=== PATIENT | female | born 1960 | race Caucasian/White ===

== ENCOUNTER → 2019-09-24 13:51 | Outpatient (BNVA) | payer MEDICARE, SELFPAY | PROVIDERS: Family Provider Internal Medicine; PCP Internal Medicine; Visit Provider Specialist | DX: M25.512 Pain in left shoulder (principal) | CPT/HCPCS: 73030 ==

== ENCOUNTER 2019-09-25 16:03 | Emergency (ER) | payer SELFPAY ==
[2019-09-25 16:05] VITALS: BP 112/64; PULSE 85; RESP 16; O2SAT 95; BMI 22.9
--- NOTE | 2019-09-25 16:17 | ED_ITS ---
Entered by Allegra Chandler, acting as scribe for Gutierrez Olivares DO HPI - SOB/Dyspnea General: Chief Complaint: Shortness of Breath/Dyspnea Stated Complaint: SOB Time Seen by Provider: 09/25/19 16:22 History of Present Illness: HPI Narrative: 59 yo female presents with shortness of breath. Pt states that she has been coughing since last night. pt states that she smokes 1 pack of cigarettes a day. Patient has moderately productive cough. No vomiting or diarrhea. She does smoke heavily has a history of severe COPD. Is not oxygen dependent at this time. Associated symptoms: Reports fever(s); Deny abdominal pain, chest pain, dizziness, extremity pain, nausea, orthopnea, palpitations, polydipsia, polyuria, syncope or vomiting Review of Systems Const: Reports: fever, chills, body aches and malaise; Denies: fatigue or night sweats Eyes: Denies: change in vision or blurry vision ENMT: Denies: throat pain, oral sores/lesions, dental pain, nasal discharge or nasal congestion Card: Reports: shortness of breath on exertion; Denies: chest pain, palpitations, irregular heart rhythm, edema, syncope, shortness of breath when lying down or leg pain with exertion Resp: Reports: productive cough and wheezing; Denies: non-productive cough GI: Denies: abdominal pain, nausea, vomiting, vomiting blood, coffee grounds in vomit, difficulty swallowing, heartburn/indigestion, diarrhea, constipation, cramping, blood in stool or black tarry stool : Denies: flank pain, painful urination, urinary frequency, urinary urgency, urinary incontinence or blood in urine Musc: Denies: neck pain, back pain, extremity pain, extremity swelling, joint pain or joint swelling Skin/Breast: Denies: rash, itching or redness Neuro: Denies: headache, numbness in extremities, weakness in extremities, changes in sensation, lack of coordination, difficulty walking, frequent falls, dizziness, vertigo or confusion Psych: Denies: anxiety, depression, loss of interest, visual hallucinations, auditory hallucinations, suicidal ideation or homicidal ideation Endo: Denies: excessive urination, excessive thirst, tired all the time or cold intolerance Donn/Lymph: Denies: easy bruising, easy bleeding, petechiae, enlarged lymph nodes or tender lymph nodes PFSH ED PFSH: Statuses (acute, chronic, etc) shown below reflect problem list status as previously entered and may not be historically accurate Medical History Cervical post-laminectomy syndrome (Chronic ~07/04/16) Hx of fracture of clavicle (Acute) repair fx collar bone. Hx of rotator cuff tear (Acute) surgery, left Low back pain of over 3 months duration (Chronic) Surgical History History of cervical spinal surgery (Acute ~07/04/16) Dr. Mujica, C5-C6 ACDFF History of cholecystectomy (Acute) History of hysterectomy (Acute ~1979) History of shoulder surgery (Acute ~04/04/16) rotator cuff repair, right Family History Mother Parkinsons disease Father Myocardial infarction Social History Smoking and tobacco status: current every day smoker Alcohol intake: never Lives independently: Yes Household members: spouse Housing: House Marital status: service: No Current occupational status: unemployed and retired History of recent travel: No Physical Exam Const: COMMON NORMALS: oriented x3 and alert GENERAL APPEARANCE: cooperative, comfortable, well kempt and well developed NUTRITIONAL APPEARANCE: underweight ORIENTATION/CONSCIOUSNESS: Yes awake, Yes oriented to person and Yes oriented to place HENMT: COMMON NORMALS: normocephalic, head/scalp atraumatic, EAC's normal, TM's normal bilaterally, external nose normal, moist oral mucous membranes and oropharynx normal HEAD & SCALP: normocephalic and atraumatic NOSE: external nose normal EXTERNAL AUDITORY CANAL: EAC's normal TYMPANIC MEMBRANE: TM's normal bilaterally MOUTH: oral and palatal mucosa normal, lip normal and tongue normal THROAT: posterior oropharynx normal and tonsils normal Eye: COMMON NORMALS: PERRL, EOMs intact bilaterally, conjunctivae normal and no scleral icterus CONJUNCTIVA: Yes conjunctivae normal PUPIL: Yes PERRL Neck/C-Spine: COMMON NORMALS: full ROM, no lymphadenopathy, supple, no meningeal signs and thyroid normal THYROID: thyroid normal and asymmetrical Lymph: LYMPHATIC: no lymphadenopathy noted Resp: COMMON NORMALS: normal respiratory effort, no retractions, no use of accessory muscles and clear to auscultation bilaterally AUSCULTATION: clear to auscultation bilaterally Cardio: COMMON NORMALS: regular rate and regular rhythm RATE: regular rate RHYTHM: regular rhythm HEART SOUNDS: no murmurs GI: COMMON NORMALS: normal to inspection, nondistended, normoactive bowel sounds, soft to palpation and no hepatosplenomegaly PALPATION: Yes soft and Yes no hepatosplenomegaly : COMMON NORMALS: Yes no CVA tenderness BLADDER/KIDNEY EXAM: Yes no CVA tenderness Back/Pelvis: COMMON NORMALS: no CVA tenderness LUMBAR SPINE/LOWER BACK: Yes normal to inspection Extremity: COMMON NORMALS: no clubbing, cyanosis or edema, no calf tenderness and no pedal edema Neuro: COMMON NORMALS: oriented x3 SENSORIUM/ORIENTATION: Yes alert, Yes oriented to person and Yes oriented to place MENINGEAL SIGNS: Yes no meningeal signs Psych: APPEARANCE: Yes well kempt Skin: COMMON NORMALS: no rashes or lesions noted and skin turgor normal GENERAL SKIN EXAM: no rashes or lesions noted and turgor normal Course ED course: Improved with nebulizer not hypoxic not requiring oxygen supplementation will discharge home on antibiotics and steroids follow-up with primary care doctor in the end of the week return if his problems Vital Signs: Vital signs: Vital Signs Temperature 97.4 F L 09/25/19 18:13 Pulse Rate 92 09/25/19 18:13 Respiratory Rate 14 09/25/19 18:13 Blood Pressure 146/86 09/25/19 18:13 Pulse Oximetry 96 09/25/19 18:13 MDM - SOB/Dyspnea Lab Data: Labs: Lab Results 09/25/19 09/25/19 09/25/19 Range/Units 12:55 16:56 16:56 WBC 11.1 H (4.0-10.0) 10^3/ uL RBC 4.02 L (4.1-5.3) 10^6/u L Hgb 12.3 (11.5-15.3) g/dL Hct 37.2 (37.0-47.0) % MCV 92.5 (81-99) fL MCH 30.6 (28.0-34.0) pg MCHC 33.1 (30.0-36.0) g/dL RDW 14.4 (12.1-15.1) % Plt Count 277 (130-400) 10^3/c mm MPV 9.4 (7.4-10.4) fL Neut % (Auto) 63.3 % Lymph % (Auto) 26.6 % [place] % (Auto) 7.8 % Eos % (Auto) 1.7 % Baso % (Auto) 0.3 % Neut # (Auto) 7.0 (1.8-7.7) 10^3/u L Lymph # (Auto) 3.0 (0.8-4.8) 10^3/u L [place] # (Auto) 0.9 (0.2-0.9) 10^3/u L Eos # (Auto) 0.2 (0.0-0.8) 10^3/u L Baso # (Auto) 0.0 (0.0-0.1) 10^3/u L Nucleated RBC % (a uto) 0 % Nucleated RBCs # 0.0 /100WBC Specimen Type Sample Site ABG pH (7.35-7.45) ABG pCO2 (35-45) mmHg ABG pO2 (80.0-100.0) mmH g ABG HCO3 (22-26) mmol/L ABG Base Excess (-2.0-2.0) mmol/ L Azael Test Hematocrit (37-47) % Hgb O2 Saturation (95-100) % Carboxyhemoglobin (0.4-20.1) %THgb Methemoglobin (0.4-1.5) % Total Hemoglobin (12-16) g/dL O2 Delivery Device FiO2 % Legal Transcriptionist ID Sodium 137 (136-145) mmol/L Potassium 3.3 L (3.5-5.1) mmol/L Chloride 102 (98-107) mmol/L Carbon Dioxide 25 (22-29) mmol/L Anion Gap 13.3 (5-19) BUN 12 (6-20) mg/dL Creatinine 1.0 H (0.5-0.9) mg/dL GFR Calculation 56.9 L (90-130) mL/min Glucose 101 (74-109) mg/dL Calcium 9.3 (8.6-10.0) mg/Dl Influenza Type A A g Negative (Negative) POC Influenza B Ag Negative (Negative) 09/25/19 Range/Units 17:03 WBC (4.0-10.0) 10^3/ uL RBC (4.1-5.3) 10^6/u L Hgb (11.5-15.3) g/dL Hct (37.0-47.0) % MCV (81-99) fL MCH (28.0-34.0) pg MCHC (30.0-36.0) g/dL RDW (12.1-15.1) % Plt Count (130-400) 10^3/c mm MPV (7.4-10.4) fL Neut % (Auto) % Lymph % (Auto) % [place] % (Auto) % Eos % (Auto) % Baso % (Auto) % Neut # (Auto) (1.8-7.7) 10^3/u L Lymph # (Auto) (0.8-4.8) 10^3/u L [place] # (Auto) (0.2-0.9) 10^3/u L Eos # (Auto) (0.0-0.8) 10^3/u L Baso # (Auto) (0.0-0.1) 10^3/u L Nucleated RBC % (a uto) % Nucleated RBCs # /100WBC Specimen Type Arterial Sample Site Radial, right ABG pH 7.47 H (7.35-7.45) ABG pCO2 30.2 L (35-45) mmHg ABG pO2 68.8 L (80.0-100.0) mmH g ABG HCO3 22.1 (22-26) mmol/L ABG Base Excess -0.7 (-2.0-2.0) mmol/ L Azael Test Pos Hematocrit 39.2 (37-47) % Hgb O2 Saturation 92.0 L (95-100) % Carboxyhemoglobin 4.1 (0.4-20.1) %THgb Methemoglobin 0.3 L (0.4-1.5) % Total Hemoglobin 12.8 (12-16) g/dL O2 Delivery Device room air FiO2 21.0 % Legal Transcriptionist ID [email or web address] Sodium (136-145) mmol/L Potassium (3.5-5.1) mmol/L Chloride (98-107) mmol/L Carbon Dioxide (22-29) mmol/L Anion Gap (5-19) BUN (6-20) mg/dL Creatinine (0.5-0.9) mg/dL GFR Calculation (90-130) mL/min Glucose (74-109) mg/dL Calcium (8.6-10.0) mg/Dl Influenza Type A A g (Negative) POC Influenza B Ag (Negative) Imaging Data^: CXR: Radiologist's impression: Portable AP upright chest, 09/25/2019 Clinical Data: cough Comparison: PA and lateral chest, 03/20/2017. Findings: No nodules, masses or effusions are seen. There is minimal atelectasis and/or pneumonia overlying the left diaphragm. The upper lobes are clear. The heart is normal. The pulmonary vascularity is not increased. No pneumothorax is seen. There is an old internal fixation of a left midclavicular fracture. There is an anterior cervical disc fusion of the C6-C7 vertebra. There are clips in the right upper quadrant from a cholecystectomy. XR/XR chest 1V portable [id number] Impression: 1. Minimal patchy opacity over surface of left diaphragm which could represent atelectasis or minimal pneumonia. 2. No other acute changes are seen. Dictated By: Elham Schulz MD Discharge Plan Discharge Patient Disposition: Home, Self-Care Clinical Impression: Acute exacerbation of chronic obstructive airways disease Condition: Stable Prescriptions: New Medrol (Celso) 4 mg tablets,dose pack See Rx Instructions .ROUTE .COMPLEX Qty: 21 RF: 0 doxycycline hyclate 100 mg tablet 100 mg PO BID 10 Days Qty: 20 RF: 0 No Action methocarbamol 750 mg tablet 750 mg PO TID RF: 0 ibuprofen 600 mg tablet 600 mg PO BID PRNRF: 0 tramadol 50 mg tablet 50 mg PO TID PRNRF: 0 montelukast 10 mg tablet 10 mg PO ONCE RF: 0 albuterol sulfate 2 mg tablet 2 mg PO TID RF: 0 pantoprazole [Protonix] 40 mg tablet,delayed release (DR/EC) 40 mg PO ONCE RF: 0 venlafaxine [Effexor XR] 75 mg capsule,extended release 24hr 75 mg PO QAM RF: 0 zolpidem 5 mg tablet 5 mg PO .HS RF: 0 metoclopramide HCl [Reglan] 10 mg tablet 10 mg PO TID PRNRF: 0 potassium chloride 10 mEq tablet,ER particles/crystals 10 meq PO ONCE RF: 0 vitamin E (dl, acetate) 400 unit capsule 400 unit PO ONCE RF: 0 atorvastatin 40 mg tablet 40 mg PO ONCE RF: 0 aspirin 81 mg tablet,delayed release (DR/EC) 81 mg PO ONCE RF: 0 levothyroxine 25 mcg capsule 25 mcg PO ONCE RF: 0 hydroxyzine HCl 50 mg tablet 50 mg PO BID PRNRF: 0 cholecalciferol (vitamin D3) 1,000 unit capsule 1,000 unit PO BID RF: 0 Discharge Orders: Discharge Order (Routine); Ordered 09/25/19 Ordered By: Gutierrez Olivares Referrals: Samantha Evans MD [Primary Care Provider] - Discharge Diet: Usual diet Discharge Activity: Resume usual activity Activity Restrictions/Additional Instructions: Follow-up with your primary care doctor if not improving the next 4 to 5 days sinew to use albuterol as needed Discharge Date/Time: 09/25/19 18:15 Coding Level of Care Code ED 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
--- NOTE | 2019-09-25 16:42 | XR_ITS ---
WS: [id number] Portable AP upright chest, 09/25/2019 Clinical Data: cough Comparison: PA and lateral chest, 03/20/2017. Findings: No nodules, masses or effusions are seen. There is minimal atelectasis and/or pneumonia ove rlying the left diaphragm. The upper lobes are clear. The heart is normal. The pulmonary vascularity is not increased. No pneumothorax is seen. There is an old internal fixation of a left midclavicular fracture. There is an anterior cervical disc fusion of the C6-C7 vertebra. There are clips in the rig ht upper quadrant from a cholecystectomy. XR/XR chest 1V portable [id number] Impression: 1. Minimal patchy opacity over surface of left diaphragm which could represent atelectasis or minimal pneumonia. 2. No other acute changes are seen.
[2019-09-25 17:03] VITALS: PULSE 82; RESP 18; O2SAT 97
[2019-09-25 17:03] LABS: Basophils % 0.3 %; Eosinophils # 0.2 10^3/uL (0.0-0.8); Eosinophils % 1.7 %; Hematocrit 37.2 % (37.0-47.0); Hemoglobin 12.3 g/dL (11.5-15.3); Lymphocytes % 26.6 %; Mean Corpuscular HGB Conc 33.1 g/dL (30.0-36.0); Mean Corpuscular Hemoglobin 30.6 pg (28.0-34.0); Mean Corpuscular Volume 92.5 fL (81-99); Mean Platelet Volume 9.4 fL (7.4-10.4); Monocytes # 0.9 10^3/uL (0.2-0.9); Monocytes % 7.8 %; Neutrophils % 63.3 %; Nucleated Red Blood Cells % 0 %; Platelet Count 277 10^3/cmm (130-400); Red Blood Count 4.02 10^6/uL (4.1-5.3); Red Cell Distribution Width 14.4 % (12.1-15.1); White Blood Count 11.1 10^3/uL (4.0-10.0)
[2019-09-25] MEDS: ipratropium-albuterol 3 mL Neb INHALATION (17:03)
[2019-09-25 17:06] VITALS: PULSE 85
[2019-09-25] MEDS: sodium chloride 0.9% 500 ML 999 ML IV (17:10)
[2019-09-25 17:11] LABS: ABG PCO2 30.2 mmHg (35-45); ABG PH Result 7.47 (7.35-7.45); Arterial Blood Gas Hematocrit 39.2 % (37-47); Base Excess ABG -0.7 mmol/L (-2.0-2.0); Blood Gas Allen Test Pos; Blood Gas Sample Site Radial, right; Blood Gas Sample Type Arterial; Carboxyhemoglobin 4.1 %THgb (0.4-20.1); HCO3 ABG 22.1 mmol/L (22-26); Methemoglobin 0.3 % (0.4-1.5); PO2 ABG 68.8 mmHg (80.0-100.0); Total Hemoglobin 12.8 g/dL (12-16)
[2019-09-25 17:20] LABS: Anion Gap 13.3 (5-19); Blood Urea Nitrogen 12 mg/dL (6-20); Calcium 9.3 mg/Dl (8.6-10.0); Carbon Dioxide 25 mmol/L (22-29); Chloride 102 mmol/L (98-107); Glomerular Filtration Rate 56.9 mL/min (90-130); Glucose 101 mg/dL (74-109); Potassium 3.3 mmol/L (3.5-5.1); Sodium 137 mmol/L (136-145)
[2019-09-25 17:46] LABS: Oxygen Device room air
[2019-09-25 18:13] VITALS: BP 146/86; PULSE 92; RESP 14; TEMP 36.3; O2SAT 96
[2019-09-25 18:38] LABS: Influenza A by IFA Negative (Negative); Influenza B by IFA Negative (Negative)
== END 2019-09-25 18:15 | disposition home or self-care (01) ==
PROVIDERS: Emergency Provider Family Medicine; Family Provider Internal Medicine; PCP Internal Medicine
DX: J44.1 Chronic obstructive pulmonary disease with (acute) exacerbation (principal); Z79.82 Long term (current) use of aspirin; F17.210 Nicotine dependence, cigarettes, uncomplicated
CPT/HCPCS: 36415; 36600; 71045; 80048; 82805; 85025; 87804; 94640; 96360; 96374; 99282; J2930; J7040

== ENCOUNTER → 2019-10-03 09:21 | Outpatient (BNVA) | payer SELFPAY | PROVIDERS: Family Provider Internal Medicine; PCP Internal Medicine; Referring Provider Orthopaedic Surgery; Visit Provider Psychiatry & Neurology Neurology | DX: G56.22 Lesion of ulnar nerve, left upper limb (principal); F17.210 Nicotine dependence, cigarettes, uncomplicated | CPT/HCPCS: 95886; 95908 ==

== ENCOUNTER 2019-10-16 10:54 | Outpatient (CLI) | payer MEDICARE, SELFPAY ==
--- NOTE | 2019-10-16 11:12 | MR_ITS ---
WS: [id number] MRI left shoulder, 10/16/2019 Clinical Data: Shoulder pain Comparison: Left shoulder x-ray, 09/24/2019, CT left shoulder, 08/11/2012. Findings: No obvious rotator cuff tear is seen. The artifact from the patient's orthopedic plate along the clav icle causes a large amount of artifact. There are small cysts at the insertion of the rotator cuff at the greater tuberosity. Acromioclavicular joint appears to be normal with no impingement or osteoart hritis. The glenoid labrum is intact with no tear or displacement. The biceps tendon resides within the bicipital groove and there is no displacement or evidence of ten dinitis or fluid in the tendon sheath. MR/MR shoulder LT con* [id number] Impression: 1. Artifact obscures detail. 2. No obvious rotator cuff tear but there are small cysts at the insertion of t he rotator cuff into the greater tuberosity. 3. Negative for labral tear or displacement. 4. No evidence of biceps tendinitis or displacement.
== END 2019-10-16 10:55 | disposition home or self-care (01) ==
LOC: RADWPI 11:00
PROVIDERS: Family Provider Internal Medicine; PCP Internal Medicine; Visit Provider Specialist
DX: M25.512 Pain in left shoulder (principal)
CPT/HCPCS: 73221

== ENCOUNTER 2019-10-16 11:02 | Outpatient (CLI) | payer MEDICARE, SELFPAY ==
--- NOTE | 2019-10-16 11:08 | XR_ITS ---
WS: [id number] Lumbar spine with flexion, extension, and neutral lateral, 10/16/2019 Clinical Data: Low back pain Comparison: Lumbar spine x-ray, 11/22/2009 Findings: No compression fractures or subluxation is seen. No disc space narrowing is seen. No limitation of motion or subluxation is seen. Minimal osteoarthritic changes of the lumbar vertebral bodies is noted. There are clips in the upper abdomen from a cholecystectomy. XR/XR lumbar spine f/e only [id number] Impression: Negative for limitation of motion or subluxation on flexion or extension.
== END 2019-10-16 11:03 | disposition home or self-care (01) ==
LOC: RADWPI 11:05
PROVIDERS: Family Provider Internal Medicine; PCP Internal Medicine; Visit Provider Licensed Practical Nurse
DX: M54.5 Low back pain (principal)
CPT/HCPCS: 72120

== ENCOUNTER → 2019-10-21 13:24 | Outpatient (BNVA) | payer MEDICARE, SELFPAY | PROVIDERS: Family Provider Internal Medicine; PCP Internal Medicine; Visit Provider Orthopaedic Surgery | DX: M25.532 Pain in left wrist (principal) | CPT/HCPCS: 73110 ==

== ENCOUNTER → 2019-10-30 10:59 | Outpatient (BNVA) | payer MEDICARE, SELFPAY | PROVIDERS: Family Provider Internal Medicine; PCP Internal Medicine; Visit Provider Nurse Practitioner Psychiatric/Mental Health | DX: F33.41 Major depressive disorder, recurrent, in partial remission (principal); F41.1 Generalized anxiety disorder; F17.210 Nicotine dependence, cigarettes, uncomplicated | CPT/HCPCS: 99213 ==

== ENCOUNTER 2019-11-12 12:57 | Outpatient (CLI) | payer MEDICARE, SELFPAY ==
--- NOTE | 2019-11-12 13:00 | MR_ITS ---
WS: [id number] MRI LUMBAR SPINE NONCONTRAST HISTORY: Low back pain COMPARISON: 07/29/2009 TECHNIQUE: Sagittal and axial multisequence imaging is submitted. Normal lumbar alignment with no compression fractures or marrow edema. Disc spaces and vertebral body heights are well-preserved. Conus terminates normally at L1. L1-L2: Normal. L2-L3: Normal. L3-L4: Mild facet arthropathy with no stenosis. L4-L5: Mild bilateral facet arthropathy without stenosis. Fluid in the facet joints bilaterally. L5-S1: Shallow central disc protrusion with mild facet and ligamentum flavum arthropathy. Mild subart icular recess narrowing, LEFT greater than RIGHT. No significant stenosis. S1 is partially lumbarized with a rudimentary S1-S2 disc space. MR/MR lumbar spine wo con* [id number] IMPRESSION: 1. Mild facet disease from L3-4 to L5-S1. No significant stenosis. 2. Shallow central disc protrusion at L5-S1. Mild subarticular recess narrowin g, LEFT greater than RIGHT.
== END 2019-11-12 12:58 | disposition home or self-care (01) ==
LOC: RADSHAW 12:59
PROVIDERS: Family Provider Internal Medicine; PCP Internal Medicine; Visit Provider Licensed Practical Nurse
DX: M51.27 Other intervertebral disc displacement, lumbosacral region (principal); M54.5 Low back pain
CPT/HCPCS: 72148

== ENCOUNTER 2019-12-08 13:19 | Outpatient (RCR) | payer MEDICARE, SELFPAY | END 2019-12-09 23:59 | disposition home or self-care (01) | LOC: SPT 13:19 | PROVIDERS: Family Provider Internal Medicine; PCP Internal Medicine; Referring Provider Licensed Practical Nurse; Visit Provider Licensed Practical Nurse | DX: M51.26 Other intervertebral disc displacement, lumbar region (principal) | CPT/HCPCS: 97110; 97161 ==

== ENCOUNTER 2019-12-10 06:00 | Outpatient (RCR) | payer OTHER, SELFPAY | END 2020-01-08 23:59 | disposition home or self-care (01) | LOC: SPT 06:00 | PROVIDERS: Family Provider Internal Medicine; PCP Internal Medicine; Referring Provider Licensed Practical Nurse; Visit Provider Licensed Practical Nurse | DX: M51.26 Other intervertebral disc displacement, lumbar region (principal) | CPT/HCPCS: 97110; G0283 ==

== ENCOUNTER 2020-01-09 06:00 | Outpatient (RCR) | payer MEDICARE, SELFPAY | END 2020-02-08 23:59 | disposition home or self-care (01) | LOC: SPT 06:00 | PROVIDERS: Family Provider Internal Medicine; PCP Internal Medicine; Referring Provider Licensed Practical Nurse; Visit Provider Licensed Practical Nurse | DX: M51.26 Other intervertebral disc displacement, lumbar region (principal) | CPT/HCPCS: 97110; G0283 ==

== ENCOUNTER → 2020-01-22 09:05 | Outpatient (BNVA) | payer MEDICARE, SELFPAY | PROVIDERS: Family Provider Internal Medicine; PCP Internal Medicine; Visit Provider Podiatrist Foot & Ankle Surgery | DX: M79.671 Pain in right foot (principal); M21.611 Bunion of right foot; M25.80 Other specified joint disorders, unspecified joint; M20.11 Hallux valgus (acquired), right foot; M21.41 Flat foot [pes planus] (acquired), right foot | CPT/HCPCS: 73630 ==

== ENCOUNTER 2020-01-22 10:53 | Outpatient (CLI) | payer MEDICARE, SELFPAY | END 2020-01-22 10:54 | disposition home or self-care (01) | LOC: SPT 10:54 | PROVIDERS: Family Provider Internal Medicine; PCP Internal Medicine; Visit Provider Podiatrist Foot & Ankle Surgery | DX: Z46.89 Encounter for fitting and adjustment of other specified devices (principal); M21.611 Bunion of right foot; M79.671 Pain in right foot; M25.80 Other specified joint disorders, unspecified joint; M20.11 Hallux valgus (acquired), right foot; M21.41 Flat foot [pes planus] (acquired), right foot | CPT/HCPCS: 73630; L4361 ==

== ENCOUNTER 2020-02-13 07:27 | Day surgery (SDC) | payer MEDICARE, SELFPAY ==
--- NOTE | 2020-02-13 | SCC_ITS ---
Procedure Done: Bunionectomy with double osteotomy right foot. Right plantar fascia cortisone injection. 2 seconds of fluoroscopic guidance, for a cumulative dose of 0.05 mGy, was provided to Dr. Kirkpatrick by the radiology department. C-arm images of the RIGHT foot were saved for the patient's permanent record. [facility]
[2020-02-13 07:43] VITALS: BP 125/70; PULSE 67; RESP 16; TEMP 36.9; O2SAT 99
[2020-02-13] MEDS: sodium chloride 0.9% 1,000 ML 30 ML IV (08:00)
--- NOTE | 2020-02-13 08:03 | ANES.PREANE2 ---
Pre-Anesthetic Assessment Pre-Anesthetic Assessment: Height/Weight: Height 1.65 m Weight 54.431 kg Temp Pulse Resp BP Pulse Ox 98.4 F 67 16 125/70 99 02/13/20 07:43 02/13/20 07:43 02/13/20 07:43 02/13/20 07:43 02/13/20 07:43 Preop Diagnosis: Right bunion deformity, right plantar fasciitis. Proposed Procedure: Operation Date: 02/13/20 08:30 Proposed Procedures p Bunionectomy Bimal [id number]/M21.611(Right) - Orion Kirkpatrick DPM Last intake: Intake Last Liquid Date 02/12/20 Last Liquid Time 22:00 Last Solid Date 02/12/20 Last Solid Time 22:00 Social: Social History: Tobacco and No alcohol Exam: Pre-Anes Outpt Exam: alert, oriented x 3, clear to auscultation bilaterally and regular rate & rhythm Airway: Submandibular: WNL Cervical ROM: WNL MP: 2 Dentition: False (upper and lower) History/ROS: No significant history except as noted Pulmonary: Pulmonary: COPD and HARTMAN CV/HEM: CV/HEM: Murmur : : None reported Hepatic: Hepatic: None reported GI: GI: GERD (occ) Metabolic: Metabolic: Hyperlipidemia and Thyroid Musc/skel: Musc/skel: Lower Back Pain and OA/DJD Neuropsych: Neuropsych: None reported Anesthetic Plan: ASA status: 3 Anesthesia: Anesthesia Evaluation and MAC Risk of > 500 ml blood loss (7ml/kg in children): No Meds/Allergies Current Medications: Current Medications Generic Name Dose Route Start Last Admin Trade Name Freq PRN Reason Stop Dose Admin Sodium Chloride 1,000 mls @ 30 ml s/hr 02/12/20 14:30 02/13/20 08:00 Sodium Chloride 0.9% IV 02/13/20 14:29 30 mls/hr .Q24H JUNIOR Administration PFSH Anesthesia PFSH: Medical History Cervical post-laminectomy syndrome (~07/04/16) Displacement of lumbar intervertebral disc SHE WILL NOTIFY NEUROSURGERY CLINIC IF/WHEN SHE WISHES TO FOLLOW-UP Generalized anxiety disorder Hx of fracture of clavicle repair fx collar bone. Hx of rotator cuff tear surgery, left Intervertebral disc disorder with radiculopathy of lumbosacral region Low back pain of over 3 months duration Major depressive disorder, recurrent, in partial remission Nicotine dependence, cigarettes, uncomplicated Surgical History History of cervical spinal surgery (~07/04/16) Dr. Mujica, C5-C6 ACDFF History of cholecystectomy History of hysterectomy (~1979) History of shoulder surgery (~04/04/16) rotator cuff repair, right Family History Mother Parkinsons disease Father Myocardial infarction Social History Smoking and tobacco status: current every day smoker cigarettes Packs smoked per day: 1 Alcohol intake: never Household members: spouse Marital status: Current occupational status: unemployed and retired History of recent travel: No Data Anesthesia Cardiac Studies: No Data to Display
--- NOTE | 2020-02-13 08:44 | W.PM.OPSUD ---
Surgery/Procedure H&P Update DATE OF PROCEDURE: February 13, 2020 DATE H&P PERFORMED: 02/05/20 H&P UPDATE INFORMATION: I have reviewed H&P completed within last 30 days, I have examined patient prior to procedure, No changes to prior documentation and H&P is in [facility] E[facility] on date indicated PREOP DIAGNOSIS: Right bunion deformity, right plantar fasciitis. PLANNED PROCEDURE: Operation Date: 02/13/20 08:30 Proposed Procedures p Bunionectomy with double osteotomy [id number]/M21.611(Right) - Orion Kirkpatrick DPM
[2020-02-13] MEDS: clindamycin 600 MG/50 ML PREMIX 100 MG IV (09:15)
[2020-02-13] MEDS: dexamethasone 4 mg/mL INJ INJECTION (10:01)
[2020-02-13] MEDS: triamcinolone 40 mg/mL SDV IM (10:01)
--- NOTE | 2020-02-13 10:14 | XR_ITS ---
WS: [id number] XR foot RT min 3V* [id number] REASON FOR EXAM: post op FINDINGS: Bunion repair is noted a screw is seen through the distal first metatarsal clips are seen t hrough the proximal first phalanx. Marked improvement in the alignment and the alignment is now seen satisfactory. A calcaneal spur is also noted. XR/XR foot RT min 3V* [id number] IMPRESSION: Bunionectomy with internal fixation satisfactory alignment. Calcaneal spur.
--- NOTE | 2020-02-13 10:15 | PM.OP ---
Operative Report Date of procedure: February 13, 2020 Pre-op Diagnosis: Right bunion deformity, right plantar fasciitis. Post-op diagnosis: same Post-op Findings: Osteochondral defect at 6:00 on first metatarsal head right foot measures 4 mm x 4 mm. Procedure Done: Bunionectomy with double osteotomy right foot. Right plantar fascia cortisone injection. Implants: Angela 3 mm headless screw by 20 mm. [place] easy clip 10 mm staple. 4-0 Vicryl 4-0 nylon. Pathology: none sent Surgeon: Orion Kirkpatrick D.P.M. Boat Designer: Mitchell Anesthesia: MAC Estimated blood loss: 5 mL Tourniquet time: 32 minutes IV fluids: None Urine output: None Complications: None Findings: Osteochondral defect noted above. Condition: stable Disposition: PACU Brief History: Ms. Luevano is a pleasant 59-year-old female with progressive bunion pain to her right foot she is requesting surgical intervention as she is failed offloading with cam boot, [id number] NSAIDs, prescribed steroidal anti-inflammatories, activity modifications including stretching exercises supportive shoes and inserts. Her bunion pain has affected her ability to carry out and enjoy everyday activities. Risks include pain, bleeding, numbness, infection, overcorrection of bunion deformity including hallux varus, hardware failure, delayed union, nonunion, hardware irritation, under correction of the deformity, recurrence of deformity, transfer pressure and damage to adjacent soft tissue structures. Patient is agreeable wishes to proceed. Procedure: Under mild sedation the patient was brought to the operating room and placed on the operating table in supine position. A timeout was performed. Anesthesia was administered by the anesthesia service. Local anesthesia was injected by myself 30 cc of 0.5% Marcaine plain and a right Mantilla block fashion. Right lower extremity was scrubbed, prepped and draped utilizing normal aseptic knee after a well-padded pneumatic tourniquet was applied to the right ankle. Right foot was examined a weighted with an Esmarch bandage and a tourniquet was inflated to 250 mmHg. Attention was directed to the dorsal medial aspect of the right first metatarsal phalangeal joint where a linear longitudinal incision was made medial and parallel to the extensor houses longus tendon. This was done with a #15 blade. Dissection was carried down through subcutaneous tissue utilizing a combination of blunt and sharp technique. Care was taken to retract to preserve neurovascular tendinous structures. Bleeders were ligated and cauterized as necessary. A linear capsulotomy was performed proximal to the metatarsal head coursing distally to the medial aspect of the proximal phalanx. First metatarsal head and base of the medial phalanx were freed from their soft tissue and capsular attachments. Dorsal medial eminence of the first metatarsal head was demonstrating bony hypertrophy this was transected utilizing a sagittal saw an axis guide was then inserted in the medial aspect of the first metatarsal head from medial to lateral followed by a chevron type osteotomy with apex pointed distally. First metatarsal head was translocated laterally in a more anatomically corrected position and temporally fixated with a guidewire followed by fixation utilizing standard AO technique utilizing a [place] 3.0 mm headless screw by 20 mm with excellent bony apposition and compression noted oriented dorsal proximal to plantar distal. Direct visualization confirmed that it did not cross or violate the first metatarsal phalangeal joint articular surface. Temporary fixation was removed. Remaining medial eminence and bony shelf was transected with sagittal saw all rough edges were smoothed. Next attention was directed to the base of the proximal phalanx where a Chidi osteotomy was performed maintaining a lateral cortical hinge this was flushed and then fixated utilizing a 10 mm [place] easy clip staple. Excellent bony apposition and compression noted. Incision site was flushed with saline solution. Intraoperative fluoroscopy utilized to confirm excellent placement of orthopedic hardware and anatomically improved bunion deformity. Capsule was closed with 4-0 Vicryl. Subcutaneous tissue closed with 4-0 Vicryl. Exparel injected per manager video recommendations utilizing recommended technique. Skin closed with 4-0 nylon. Dressings applied consisting of Adaptic, sterile 4 x 4's, Kerlix, [place] wrap and cam boot to the right lower extremity. Tourniquet was deflated and a prompt hyperemic response was noted to the distal digits of the right foot. Risk associated with cortisone injection include but are not limited to: Pain at the injection site, weakening of the muscles and ligaments surrounding the injection site leading to pain and instability, fat pad atrophy, indentation of tissue secondary to atrophy, long-term pain, pigment changes of the skin, numbness, infection, bruising, increase in serum glucose. After obtaining verbal and written consent patient wishes to proceed. Area was cleansed with alcohol wipe, cold spray was utilized. Injection carried out consisting of a total of 3 mL 1-1-1 mixture 0.5% Marcaine plain, dexamethasone and Kenalog. Patient tolerated procedure well. Area covered with a Band-Aid. This was carried out to the right plantar fascia without complication. Patient was transferred to the PACU with vital signs stable and vascular status intact. Following a period of postoperative monitoring she will be discharged home is to be limited weightbearing with a cam boot at all times she will keep her postoperative dressings clean dry and intact until follow-up visit she was given her time and date for her reappointment also my cell phone number to contact me with any postoperative questions or concerns.
[2020-02-13 10:16] VITALS: BP 104/68; PULSE 81; RESP 12; TEMP 36.8; O2SAT 100
[2020-02-13 10:34] VITALS: BP 107/84; PULSE 69; RESP 16; O2SAT 98
[2020-02-13 10:53] VITALS: BP 138/67; PULSE 66; RESP 18; O2SAT 100
== END 2020-02-13 11:10 | disposition home or self-care (01) ==
PROVIDERS: PCP Internal Medicine; Visit Provider Podiatrist Foot & Ankle Surgery
PROC: (CPT 28296; principal; 2020-02-13 08:10)
DX: M21.611 Bunion of right foot (principal); M72.2 Plantar fascial fibromatosis; J44.9 Chronic obstructive pulmonary disease, unspecified; K21.9 Gastro-esophageal reflux disease without esophagitis; E78.5 Hyperlipidemia, unspecified; M19.90 Unspecified osteoarthritis, unspecified site; F17.210 Nicotine dependence, cigarettes, uncomplicated; Z79.82 Long term (current) use of aspirin
CPT/HCPCS: 20550; 28299; 12345; 73630; 76000; C1713; C9290; J1100; J2001; J2704; J3010; J3301; J3490; J7030

== ENCOUNTER → 2020-02-23 07:30 | Outpatient (BNVA) | payer MEDICARE, SELFPAY | PROVIDERS: PCP Internal Medicine; Visit Provider Nurse Practitioner Psychiatric/Mental Health | DX: F33.41 Major depressive disorder, recurrent, in partial remission (principal); F41.1 Generalized anxiety disorder; F17.210 Nicotine dependence, cigarettes, uncomplicated | CPT/HCPCS: 99213 ==

== ENCOUNTER 2020-03-05 09:08 | Outpatient (CLI) | payer MEDICARE, SELFPAY ==
--- NOTE | 2020-03-05 09:15 | CT_ITS ---
WS: [id number] CT LUNG CANCER SCREENING DLP: 52.86 mGy.cm DIvol: 1.52 mGy CLINICAL INFORMATION SCREENING VISIT: Baseline COMPARISON: 01/23/2017 FINDINGS Diagnostic quality: Satisfactory Comments: None. Lung Nodules: None. No endobronchial lesions. No groundglass attenuation. Lungs: Mild pulmonary hyperexpansion. Heart: Normal size heart. Other findings: Small hiatal hernia. A few scattered calcifications within the aorta. Prior cholecystectomy. Mild increase in the thoracic kyphosis. CT/CT lung screening [id number] IMPRESSION: LUNG-RADS: 1-Negative FOLLOW UP: 12 Month: Continue annual screening with LDCT
== END 2020-03-05 09:09 | disposition home or self-care (01) ==
LOC: CT 09:11
PROVIDERS: PCP Internal Medicine; Visit Provider Internal Medicine
DX: Z12.2 Encounter for screening for malignant neoplasm of respiratory organs (principal); F17.210 Nicotine dependence, cigarettes, uncomplicated; K44.9 Diaphragmatic hernia without obstruction or gangrene; I70.0 Atherosclerosis of aorta
CPT/HCPCS: G0297

== ENCOUNTER → 2020-03-10 09:54 | Outpatient (BNVA) | payer MEDICARE, SELFPAY | PROVIDERS: PCP Internal Medicine; Visit Provider Podiatrist Foot & Ankle Surgery | DX: R11.0 Nausea (principal); Z98.890 Other specified postprocedural states; S99.929A Unspecified injury of unspecified foot, initial encounter | CPT/HCPCS: 73630 ==

== ENCOUNTER 2020-03-24 09:44 | Outpatient (CLI) | payer MEDICARE, SELFPAY ==
--- NOTE | 2020-03-24 09:52 | XRR_ITS ---
PROCEDURE INFORMATION: Exam: XR Right Foot Complete Exam date and time: 03/24/2020 10:08 AM Age: 59 years old Clinical indication: Condition or disease; Other: S/P bunionectomy 02/13/20; Prior surgery; Surgery date: 1-6 months; Patient HX: S/P bunionectomy. 02/13/20; Additional info: Post operative TECHNIQUE: Imaging protocol: XR Right foot. Views: 3 or more views. COMPARISON: CR (LOW EXM, ) 03/10/2020 9:58 AM FINDINGS: Bones/joints: Postoperative change in the 1st metatarsal and 1st proximal phalanx. No acute fracture. Stable alignment. Soft tissues: Minimal medial soft tissue swelling. XR/XR foot RT min 3V* [id number] IMPRESSION: Stable postoperative changes.
== END 2020-03-24 09:45 | disposition home or self-care (01) ==
LOC: RAD 09:47
PROVIDERS: PCP Internal Medicine; Visit Provider Podiatrist Foot & Ankle Surgery
DX: M21.611 Bunion of right foot (principal)
CPT/HCPCS: 73630

== ENCOUNTER → 2020-04-07 08:39 | Outpatient (BNVA) | payer MEDICARE, SELFPAY | PROVIDERS: PCP Internal Medicine; Visit Provider Podiatrist Foot & Ankle Surgery | DX: M21.611 Bunion of right foot (principal); S99.929A Unspecified injury of unspecified foot, initial encounter; R11.0 Nausea; Z98.890 Other specified postprocedural states; M77.31 Calcaneal spur, right foot | CPT/HCPCS: 73630 ==

== ENCOUNTER 2020-04-16 08:35 | Day surgery (SDC) | payer MEDICARE, SELFPAY ==
[2020-04-14 07:34] VITALS: BMI 20.3
[2020-04-16 08:52] VITALS: BP 126/77; PULSE 73; RESP 18; TEMP 35.8; O2SAT 96
[2020-04-16] MEDS: sodium chloride 0.9% 1,000 ML 30 ML IV (09:07)
--- NOTE | 2020-04-16 09:24 | ANES.PREANE2 ---
Pre-Anesthetic Assessment Pre-Anesthetic Assessment: Height/Weight: Height 1.7 m Weight 58.967 kg Temp Pulse Resp BP Pulse Ox 96.5 F L 73 18 126/77 96 04/16/20 08:52 04/16/20 08:52 04/16/20 08:52 04/16/20 08:52 04/16/20 08:52 Preop Diagnosis: dysphagia Proposed Procedure: Operation Date: 04/16/20 09:30 Proposed Procedures p EGD [id number] R13.10(Not Applicable) - Kulwant Cota MD s Colonoscopy(Not Applicable) - Kulwant Cota MD Was Beta Luke taken within 24 hours: N/A Last intake: Intake Last Liquid Date 04/15/20 Last Liquid Time 23:30 Social: Social History: Tobacco (1ppd) Exam: Pre-Anes Outpt Exam: alert, oriented x 3, clear to auscultation bilaterally and regular rate & rhythm Airway: Submandibular: WNL Cervical ROM: WNL MP: 2 Dentition: False History/ROS: No significant history except as noted and No significant complaints Pulmonary: Pulmonary: Asthma, COPD and Sleep apnea (wears cpap occasionally) CV/HEM: CV/HEM: None reported : : None reported Hepatic: Hepatic: None reported GI: GI: GERD Metabolic: Metabolic: None reported Musc/skel: Musc/skel: None reported Neuropsych: Neuropsych: VANEGAS Anesthetic Plan: ASA status: 3 Anesthesia: MAC Meds/Allergies Current Medications: Current Medications Generic Name Dose Route Start Last Admin Trade Name Freq PRN Reason Stop Dose Admin Sodium Chloride 1,000 mls @ 30 ml s/hr 04/16/20 09:00 04/16/20 09:07 Sodium Chloride 0.9% IV 30 mls/hr .Q24H JUNIOR Administration PFSH Anesthesia PFSH: Medical History Cervical post-laminectomy syndrome (~07/04/16) Displacement of lumbar intervertebral disc SHE WILL NOTIFY NEUROSURGERY CLINIC IF/WHEN SHE WISHES TO FOLLOW-UP Generalized anxiety disorder Hx of fracture of clavicle repair fx collar bone. Hx of rotator cuff tear surgery, left Intervertebral disc disorder with radiculopathy of lumbosacral region Low back pain of over 3 months duration Major depressive disorder, recurrent, in partial remission Nicotine dependence, cigarettes, uncomplicated Surgical History History of cervical spinal surgery (~07/04/16) Dr. Mujica, C5-C6 ACDFF History of cholecystectomy History of hysterectomy (~1979) History of shoulder surgery (~04/04/16) rotator cuff repair, right Family History Mother Parkinsons disease Father Myocardial infarction Social History Smoking and tobacco status: current every day smoker cigarettes Packs smoked per day: 1 Alcohol intake: never Household members: spouse Marital status: Current occupational status: unemployed and retired History of recent travel: No Data Anesthesia Cardiac Studies: No Data to Display
--- NOTE | 2020-04-16 09:26 | W.PM.OPSUD ---
Surgery/Procedure H&P Update DATE OF PROCEDURE: April 16, 2020 DATE H&P PERFORMED: 04/05/20 PREOP DIAGNOSIS: dble PLANNED PROCEDURE: Operation Date: 04/16/20 09:30 Proposed Procedures p EGD [id number] R13.10(Not Applicable) - Kulwant Cota MD s Colonoscopy(Not Applicable) - Kulwant Cota MD
[2020-04-16 09:52] VITALS: BP 108/72; PULSE 71; RESP 16; TEMP 36.3; O2SAT 100
--- NOTE | 2020-04-16 10:50 | ANE.PACU2 ---
Inpatient post-anesthesia follow up: Airway intact: Yes Vital signs: Temperature 97.3 F Pulse Rate 71 Respiratory Rate 16 Blood Pressure 108/72 Pulse Oximetry 100 Oxygen Delivery Me thod Nasal Cannula Oxygen Flow Rate 3 Fraction of Inspir ed Oxygen Hydration adequate: Yes Nausea and vomiting: No Mental status: Baseline
[2020-04-19 05:59] LABS: H. Pylori / CLO Test Negative
== END 2020-04-16 10:34 | disposition home or self-care (01) ==
PROVIDERS: PCP Internal Medicine; Visit Provider Internal Medicine
PROC: 0DJ08ZZ Inspection of Upper Intestinal Tract, Via Natural or Artificial Opening Endoscopic (ICD-10-PCS; CPT 43235; principal; 2020-04-16 09:30)
PROC: 0DJD8ZZ Inspection of Lower Intestinal Tract, Via Natural or Artificial Opening Endoscopic (ICD-10-PCS; CPT 45378; 2020-04-16 09:30)
DX: Z12.11 Encounter for screening for malignant neoplasm of colon (principal); R13.10 Dysphagia, unspecified; K21.0 Gastro-esophageal reflux disease with esophagitis; K29.70 Gastritis, unspecified, without bleeding; F41.9 Anxiety disorder, unspecified; F33.41 Major depressive disorder, recurrent, in partial remission; F17.210 Nicotine dependence, cigarettes, uncomplicated
CPT/HCPCS: 12345; 43239; 45378; 87077; G0121; J2704; J7030

== ENCOUNTER 2020-04-19 11:23 | Outpatient (CLI) | payer MEDICARE, SELFPAY ==
--- NOTE | 2020-04-19 11:26 | MM_ITS ---
WS: [id number] BILATERAL DIGITAL SCREENING MAMMOGRAPHY WITH CAD CLINICAL INFORMATION: SCREENING HISTORY: Screening mammogram. No current complaints. COMPARISON: March 20, 2019 TECHNIQUE: Bilateral CC and MLO views. FINDINGS: Scattered fibroglandular densities bilaterally. No suspicious focal mass, asymmetry, calcifications, or architectural distortion. No evidence of malignancy. Stable punctate calcifications inner right br east. MM/[place] [id number] IMPRESSION: BI-RADS: 2-Benign FOLLOW UP: 1 Year Follow-up Recommend return to annual screening mammography.
== END 2020-04-19 11:24 | disposition home or self-care (01) ==
LOC: RADSHAW 11:23
PROVIDERS: PCP Internal Medicine; Visit Provider Internal Medicine
DX: Z12.31 Encounter for screening mammogram for malignant neoplasm of breast (principal)
CPT/HCPCS: 77067

== ENCOUNTER → 2020-05-20 07:50 | Outpatient (BNVA) | payer MEDICARE, SELFPAY | PROVIDERS: PCP Internal Medicine; Visit Provider Nurse Practitioner Psychiatric/Mental Health | DX: F33.41 Major depressive disorder, recurrent, in partial remission (principal); F41.1 Generalized anxiety disorder; F17.210 Nicotine dependence, cigarettes, uncomplicated | CPT/HCPCS: 99213 ==

== ENCOUNTER 2020-06-02 09:34 | Outpatient (CLI) | payer MEDICARE, SELFPAY ==
--- NOTE | 2020-06-02 09:38 | XRR_ITS ---
PROCEDURE INFORMATION: Exam: XR Lumbosacral Spine, 2 or 3 Views Exam date and time: 06/02/2020 10:06 AM Age: 59 years old Clinical indication: Other: Coccygeal pain TECHNIQUE: Imaging protocol: XR of the lumbosacral spine, 2 or 3 views. COMPARISON: MR lumbar spine wo con* [id number] 11/12/2019 1:15 PM FINDINGS: Vertebrae: Mild degenerative disc disease reflected as a decrease in disc space height and anterior endplate osteophytosis. No spondylolisthesis No pars defect. No fracture. Sacrum/coccyx: Partial lumbarization of the 1st sacral segment Soft tissues: Unremarkable. XR/XR lumbar spine min 4V [id number] IMPRESSION: Mild diffuse degenerative disc disease.
== END 2020-06-02 09:35 | disposition home or self-care (01) ==
LOC: RAD 09:34
PROVIDERS: PCP Internal Medicine; Visit Provider Nurse Practitioner Family
DX: M53.3 Sacrococcygeal disorders, not elsewhere classified (principal); M51.36 Other intervertebral disc degeneration, lumbar region
CPT/HCPCS: 72114

== ENCOUNTER → 2020-07-05 09:38 | Outpatient (BNVA) | payer MEDICARE, SELFPAY | PROVIDERS: PCP Internal Medicine; Visit Provider Orthopaedic Surgery | DX: M25.532 Pain in left wrist (principal) | CPT/HCPCS: 73110 ==

== ENCOUNTER → 2020-07-15 07:26 | Outpatient (BNVA) | payer MEDICARE, SELFPAY | PROVIDERS: PCP Internal Medicine; Visit Provider Nurse Practitioner Psychiatric/Mental Health | DX: F33.41 Major depressive disorder, recurrent, in partial remission (principal); F41.1 Generalized anxiety disorder; F17.210 Nicotine dependence, cigarettes, uncomplicated | CPT/HCPCS: 99213 ==

== ENCOUNTER → 2020-07-24 10:17 | Outpatient (BNVA) | payer MEDICARE, SELFPAY | PROVIDERS: PCP Internal Medicine; Visit Provider Orthopaedic Surgery | DX: Z01.812 Encounter for preprocedural laboratory examination (principal); Z20.828 Contact with and (suspected) exposure to other viral communicable diseases | CPT/HCPCS: 87635 ==

== ENCOUNTER 2020-07-29 09:15 | Day surgery (SDC) | payer MEDICARE, SELFPAY ==
[2020-07-28 15:04] VITALS: BMI 20.3
[2020-07-29] VITALS (9 sets, daily range): BP systolic 125–173; BP diastolic 44–77; PULSE 60–94; RESP 16–20; TEMP 36.4–37.7; O2SAT 95–98
[2020-07-29] MEDS: sodium chloride 0.9% 1,000 ML 30 ML IV (10:13)
--- NOTE | 2020-07-29 10:20 | ANES.PREANE2 ---
Pre-Anesthetic Assessment Pre-Anesthetic Assessment: Height/Weight: Height 1.7 m Weight 58.967 kg Temp Pulse Resp BP Pulse Ox 99.8 F H 60 18 125/44 98 07/29/20 09:52 07/29/20 09:52 07/29/20 09:52 07/29/20 09:52 07/29/20 09:52 Preop Diagnosis: Painful hardware left wrist Proposed Procedure: Operation Date: 07/29/20 12:15 Proposed Procedures p Hardware Removal Wrist Left 07961 M25.532(Left) - Igor Catalan MD Familial anesthetic complications: None Was Beta Luke taken within 24 hours: N/A Social: Social History: Tobacco Exam: Pre-Anes Outpt Exam: alert, oriented x 3, clear to auscultation bilaterally and regular rate & rhythm Airway: Cervical ROM: WNL MP: 2 Dentition: False Pulmonary: Pulmonary: Asthma and HARTMAN GI: GI: GERD Metabolic: Metabolic: Hyperlipidemia and Thyroid Anesthetic Plan: ASA status: 3 Anesthesia: General Risk of > 500 ml blood loss (7ml/kg in children): No Meds/Allergies Current Medications: Current Medications Generic Name Dose Route Start Last Admin Trade Name Freq PRN Reason Stop Dose Admin Sodium Chloride 1,000 mls @ 30 ml s/hr 07/29/20 10:00 07/29/20 10:13 Sodium Chloride 0.9% IV 07/30/20 09:59 30 mls/hr .Q24H JUNIOR Administration PFSH Anesthesia PFSH: Medical History Cervical post-laminectomy syndrome (~07/04/16) Displacement of lumbar intervertebral disc SHE WILL NOTIFY NEUROSURGERY CLINIC IF/WHEN SHE WISHES TO FOLLOW-UP Generalized anxiety disorder Hx of fracture of clavicle repair fx collar bone. Hx of rotator cuff tear surgery, left Intervertebral disc disorder with radiculopathy of lumbosacral region Low back pain of over 3 months duration Major depressive disorder, recurrent, in partial remission Nicotine dependence, cigarettes, uncomplicated Surgical History History of cervical spinal surgery (~07/04/16) Dr. Mujica, C5-C6 ACDFF History of cholecystectomy History of hysterectomy (~1979) History of shoulder surgery (~04/04/16) rotator cuff repair, right Family History Mother Parkinsons disease Father Myocardial infarction Social History Smoking and tobacco status: current every day smoker cigarettes Packs smoked per day: 1 Alcohol intake: never Household members: spouse Marital status: Current occupational status: unemployed and retired History of recent travel: No Data Anesthesia Cardiac Studies: No Data to Display
--- NOTE | 2020-07-29 14:27 | W.PM.OPSUD ---
Surgery/Procedure H&P Update DATE OF PROCEDURE: July 29, 2020 DATE H&P PERFORMED: 07/05/20 PREOP DIAGNOSIS: Painful hardware left wrist PLANNED PROCEDURE: Operation Date: 07/29/20 12:15 Proposed Procedures p Hardware Removal Wrist Left 29212 M25.532(Left) - Igor Catalan MD
--- NOTE | 2020-07-29 15:07 | PM.OP ---
Operative Report Date of procedure: July 29, 2020 Pre-op Diagnosis: Painful hardware left wrist Post-op diagnosis: same Post-op Findings: Same Procedure Done: Removal of deep hardware left distal radius Pathology: none sent Surgeon: Igor Catalan Anesthesia: General and Nerve Block (Axillary nerve block) Estimated blood loss (mL): 20 Tourniquet time (min): 9 Complications: None Findings: The patient had a united fracture of distal radius. No hardware related abnormalities were identified. No evidence of a deep infection was identified. Brief History: The patient is a 59-year-old female with persistent left wrist pain after open left internal fixation of the left distal radius. Hardware removal was chosen to eliminated as a potential source of pain Procedure: The patient was taken to the operating room after an axillary block was provided by anesthesia. She was given 2 g of Ancef. She is prepped and draped with her left arm exposed. A timeout was performed. A 6 cm long incision was made along her previous scar. The flexor carpi radialis tendon was identified and mobilized. Its inferior tendon sheath was incised bringing us down to the pronator quadratus which was elevated off the distal radius. The plate was identified. 3 distal locking screws and 3 proximal screws were all removed. The plate was easily elevated with no specific abnormalities noted. The wound was irrigated with saline. Deep tissues were closed with 3-0 Vicryl. The skin was closed with skin trey. A compressive dressing was applied. The patient was extubated and taken to recovery room in stable condition.
[2020-07-29] MEDS: fentaNYL 50 mcg/mL INJ 2mL IVP ×2 (15:22→15:27)
--- NOTE | 2020-07-29 15:56 | ANE.PACU2 ---
Inpatient post-anesthesia follow up: Airway intact: Yes Vital signs: Temperature 97.8 F Pulse Rate 77 Respiratory Rate 17 Blood Pressure 143/77 Pulse Oximetry 96 Oxygen Delivery Me thod Room Air Oxygen Flow Rate Fraction of Inspir ed Oxygen Hydration adequate: Yes Nausea and vomiting: No Pain level: 4 Mental status: Baseline
== END 2020-07-29 16:49 | disposition home or self-care (01) ==
PROVIDERS: PCP Internal Medicine; Visit Provider Orthopaedic Surgery
PROC: (CPT 20680; principal; 2020-07-29 12:15)
DX: T84.84XA Pain due to internal orthopedic prosthetic devices, implants and grafts, initial encounter (principal); J45.909 Unspecified asthma, uncomplicated; E78.5 Hyperlipidemia, unspecified; F17.210 Nicotine dependence, cigarettes, uncomplicated
CPT/HCPCS: 20680; 12345; J0690; J1100; J1580; J2405; J2704; J3010; J3490; J7030

== ENCOUNTER 2020-08-11 11:00 | Outpatient (CLI) | payer MEDICARE, SELFPAY | END 2020-08-11 11:01 | disposition home or self-care (01) | LOC: SPT 11:01 | PROVIDERS: PCP Internal Medicine; Visit Provider Orthopaedic Surgery | DX: Z46.89 Encounter for fitting and adjustment of other specified devices (principal); M19.031 Primary osteoarthritis, right wrist | CPT/HCPCS: 97760; L3924 ==

== ENCOUNTER 2020-09-02 13:51 | Outpatient (CLI) | payer MEDICARE, SELFPAY ==
--- NOTE | 2020-09-02 13:59 | XR_ITS ---
WS: [id number] LEFT SHOULDER: 2 VIEW(S) TECHNIQUE: Internal and external rotation. HISTORY: PAIN COMPARISON: 09/24/2019 Prior screw and plate fixation LEFT clavicle. No acute fractures. There is mild narrowing of the AC j oint. Mild narrowing of the glenohumeral joint. No displacement or fracture. XR/XR shoulder LT min 2V* [id number] IMPRESSION: 1. Status post plate and screw fixation LEFT clavicle. 2. Mild degenerative changes at the glenohumeral joint and AC joint. No acute interval change since 09/24/2019.
== END 2020-09-02 13:52 | disposition home or self-care (01) ==
LOC: RAD 13:56
PROVIDERS: PCP Internal Medicine; Visit Provider Internal Medicine
DX: M25.512 Pain in left shoulder (principal)
CPT/HCPCS: 73030

== ENCOUNTER → 2020-09-22 09:52 | Outpatient (BNVA) | payer MEDICARE, SELFPAY | PROVIDERS: PCP Internal Medicine; Referring Provider Internal Medicine; Visit Provider Specialist | DX: G89.29 Other chronic pain (principal); M25.512 Pain in left shoulder | CPT/HCPCS: 73030 ==

== ENCOUNTER 2020-09-24 19:58 | Emergency (ER) | payer MEDICARE, SELFPAY ==
[2020-09-24 20:06] VITALS: BP 120/82; PULSE 76; RESP 18; TEMP 36.8; O2SAT 99; BMI 22.3
--- NOTE | 2020-09-24 21:28 | XRR_ITS ---
PROCEDURE INFORMATION: Exam: XR Right Ribs with PA Chest, 3 Views Exam date and time: 09/24/2020 10:03 PM Age: 60 years old Clinical indication: Pain; Other: RT. Ribs; Additional info: R rib pain TECHNIQUE: Imaging protocol: XR Right ribs 3 views with PA chest. COMPARISON: CR XR chest 1V portable [id number] 09/25/2019 4:50 PM FINDINGS: Lungs: The lungs are hyperinflated with coarse interstitial lung markings compatible fibrosis unchanged since the prior exam. Pleural space: Unremarkable. No pleural effusion. No pneumothorax. Heart/Mediastinum: Unremarkable. No cardiomegaly. Bones/joints: Postoperative changes left clavicle are noted. There is osteopenia. Subtle nondisplaced linear fractures of the posterior right 6th through 8th ribs are noted. No additional acute fracture. Moderate degenerative changes are noted in the spine. XR/XR ribs RT mn 3V w CXR1V [id number] IMPRESSION: Subtle nondisplaced linear fractures of the posterior right 6th through 8th ribs are noted.
--- NOTE | 2020-09-24 21:32 | PC.NURSE ---
pt ambulated to room with friend
[2020-09-24 22:08] VITALS: BP 116/75; PULSE 75; RESP 18; O2SAT 95
--- NOTE | 2020-09-24 22:15 | ED_ITS ---
HPI - General Adult General: Chief complaint: General Medical Stated complaint: R RIB PAIN Time Seen by Provider: 09/24/20 21:13 History of Present Illness: HPI narrative: 60-year-old female complains of 5 days of right-sided rib pain. No trauma. She states that she woke up that morning and they were hurting. It hurts to take a deep breath. It hurts to cough. She is not short of breath. She is not been running a fever. She is not coughing more than usual. Onset (ago): day(s) (5) Location: chest Radiation: non-radiation Severity: moderate Quality: stabbing and aching Pain Consistency: intermittent Relieving factors: none Exacerbating factors: movement and other (Coughing) Associated symptoms: Deny cough, decreased appetite, dyspnea, fevers/chills, nausea, rash, palpitations, short of breath or vomiting Review of Systems Const: Denies: fever(s) or chills Card: Denies: palpitations Resp: Denies: dyspnea, productive cough or non-productive cough GI: Denies: nausea or vomiting : Denies: difficulty voiding, dysuria or hematuria Skin/Breast: Denies: rash PFSH ED PFSH: Medical History (Updated 09/24/20 @ 22:26 by Twin Wiseman DO) Cervical post-laminectomy syndrome (~07/04/16) Displacement of lumbar intervertebral disc SHE WILL NOTIFY NEUROSURGERY CLINIC IF/WHEN SHE WISHES TO FOLLOW-UP Generalized anxiety disorder Hx of fracture of clavicle repair fx collar bone. Hx of rotator cuff tear surgery, left Intervertebral disc disorder with radiculopathy of lumbosacral region Low back pain of over 3 months duration Major depressive disorder, recurrent, in partial remission Nicotine dependence, cigarettes, uncomplicated Surgical History History of cervical spinal surgery (~07/04/16) Dr. Mujica, C5-C6 ACDFF History of cholecystectomy History of hysterectomy (~1979) History of shoulder surgery (~04/04/16) rotator cuff repair, right Family History Mother Parkinsons disease Father Myocardial infarction Social History Smoking and tobacco status: current every day smoker cigarettes Packs smoked per day: 1 Alcohol intake: never Household members: spouse Marital status: Current occupational status: unemployed and retired History of recent travel: No Physical Exam Const: GENERAL APPEARANCE: cooperative and comfortable NUTRITIONAL APPEARANCE: thin ORIENTATION/CONSCIOUSNESS: Yes awake, Yes oriented to person and Yes oriented to place HENMT: COMMON NORMALS: normocephalic HEAD & SCALP: normocephalic Chest: COMMONS NORMALS: normal inspection of the chest CHEST: Yes Symmetrical chest wall rise and Yes tenderness rib (right mid-lower) Resp: COMMON NORMALS: normal respiratory effort, No retractions, No use of accessory muscles and clear to auscultation bilaterally AUSCULTATION: clear to auscultation bilaterally Cardio: COMMON NORMALS: regular rate, regular rhythm and No murmurs present (Cardio) RATE: regular rate RHYTHM: regular rhythm GI: COMMON NORMALS: Normal to inspection, nondistended, normoactive bowel sounds present, Soft to palpation and non-tender PALPATION: Yes Soft to palpation : BLADDER/KIDNEY EXAM: Yes CVA tenderness on the right Back/Pelvis: GENERAL BACK: Yes CVA tenderness Neuro: SENSORIUM/ORIENTATION: Yes oriented to person and Yes oriented to place Skin: COMMON NORMALS: no rashes or lesions noted GENERAL SKIN EXAM: no rashes or lesions noted Course Vital Signs: Vital signs: Vital Signs Temperature 98.2 F 09/24/20 20:06 Pulse Rate 77 09/24/20 22:36 Respiratory Rate 18 09/24/20 22:36 Blood Pressure 112/81 09/24/20 22:36 Pulse Oximetry 99 09/24/20 22:36 MDM - General Adult MDM Narrative: Medical decision making narrative: No fever, no urine changes. The patient is not hypoxic or tachycardic. She has very reproducible pain on palpation of her ribs. X-ray shows a subtle nondisplaced rib fractures 6 through 8 on the right exactly where she is tender. Lung is up, and without consolidation. Discharge Plan Discharge Patient Disposition: Home Clinical Impression: Fracture, ribs Qualifiers: Encounter type: initial encounter Rib fracture type: multiple ribs Fracture type: closed Laterality: right Qualified Code(s): S22.41XA - Multiple fractures of ribs, right side, initial encounter for closed fracture Condition: Stable Prescriptions: [place] 5-325 mg tablet 1 tab PO Q6H Qty: 12 RF: 0 No Action montelukast 10 mg tablet 10 mg PO DAILY RF: 0 levothyroxine 25 mcg capsule 25 mcg PO DAILY RF: 0 cholecalciferol (vitamin D3) 1,000 unit capsule 1,000 unit PO BID RF: 0 amitriptyline 25 mg tablet 25 mg PO BEDTIME Qty: 90 RF: 2 (DME) [facility] Joint Brace See Rx Instructions .ROUTE .MEDSUPPLY Qty: 1 RF: 0 venlafaxine [Effexor XR] 75 mg capsule,extended release 24hr 75 mg PO QAM Qty: 90 RF: 2 albuterol sulfate [Ventolin HFA] 90 mcg/actuation HFA aerosol inhaler 2 puff INHALATION QID PRN (Reason: Shortness Of Breath Or Wheezing) RF: 0 [place] 7.5-325 mg tablet 1 tab PO Q4H Qty: 30 RF: 0 ondansetron HCl [Zofran] 8 mg tablet 8 mg PO Q8H PRN (Reason: Nausea) RF: 0 Discharge Orders: Discharge ED (Routine); Ordered 09/24/20 Ordered By: Twin Wiseman Referrals: Samantha Evans MD [Primary Care Provider] - 4-7 days Discharge Diet: Advance as tolerated Discharge Activity: Increase activity as tolerated Patient Instructions: Rib Fracture (ED) Activity Restrictions/Additional Instructions: Use pain medication only for significant pain. Return for fever greater than 100, increasing cough, sputum production, worsening shortness of breath, other concerning symptoms Coding Level of Care Code ED Physical Security Manager for Chg Fwd Exam Comprehensive
[2020-09-24 22:28] VITALS: RESP 18; O2SAT 99
[2020-09-24] MEDS: oxyCODONE-APAP 5-325 mg Tablet 2 TAB PO (22:28)
[2020-09-24 22:36] VITALS: BP 112/81; PULSE 77; RESP 18; O2SAT 99
== END 2020-09-24 22:38 | disposition home or self-care (01) ==
PROVIDERS: Emergency Provider Emergency Medicine; PCP Internal Medicine
DX: S22.41XA Multiple fractures of ribs, right side, initial encounter for closed fracture (principal); F17.210 Nicotine dependence, cigarettes, uncomplicated; X58.XXXA Exposure to other specified factors, initial encounter
CPT/HCPCS: 12345; 71101; 99281; 99283

== ENCOUNTER 2020-10-06 10:08 | Outpatient (RCR) | payer MEDICARE, SELFPAY | END 2020-10-10 23:59 | disposition home or self-care (01) | LOC: SPT 10:08 | PROVIDERS: PCP Internal Medicine; Referring Provider Specialist; Visit Provider Specialist | DX: M25.512 Pain in left shoulder (principal) | CPT/HCPCS: 97110; 97162 ==

== ENCOUNTER 2020-10-11 06:00 | Outpatient (RCR) | payer MEDICARE, SELFPAY | END 2020-11-07 23:59 | disposition home or self-care (01) | LOC: SPT 06:00 | PROVIDERS: PCP Internal Medicine; Referring Provider Specialist; Visit Provider Specialist | DX: M25.512 Pain in left shoulder (principal); F33.41 Major depressive disorder, recurrent, in partial remission; F41.1 Generalized anxiety disorder; F17.210 Nicotine dependence, cigarettes, uncomplicated | CPT/HCPCS: 97110; 99214 ==

== ENCOUNTER 2020-10-20 08:14 | Outpatient (CLI) | payer MEDICARE, SELFPAY ==
--- NOTE | 2020-10-20 08:18 | NM_ITS ---
WS: [id number] NUCLEAR MEDICINE BONE SCAN Radiopharmaceutical: 25.3 Tc-99m MDP mCi IV Injection site: Right wrist Postinjection imaging delay: 1 hr CLINICAL INFORMATION: MULTIPLE FRACTURE OF THE RIBS COMPARISON: Radiograph September 24, 2020 FINDINGS: Bone lesions: Focal punctate uptake involving the right lower anterior lateral 10th rib. This is like ly due to healing rib fracture. No other suspicious foci of uptake in the ribs. Soft tissue contours: Normal. Kidneys: Normal. Other findings: Degenerative type uptake involving both ankles and first MTP joints. NM/NM bone scan whole body* 27709 IMPRESSION: 1. Focal punctate radiotracer uptake involving the right lower anterolateral 1 0th rib likely due to healing rib fracture 2. No other suspicious foci of uptake. 3. No abnormal activity involving the previously described suspected right si xth through eighth rib fractures on the prior radiograph.
== END 2020-10-20 08:15 | disposition home or self-care (01) ==
LOC: NM 08:16
PROVIDERS: PCP Internal Medicine; Visit Provider Internal Medicine
DX: S22.41XA Multiple fractures of ribs, right side, initial encounter for closed fracture (principal); X58.XXXA Exposure to other specified factors, initial encounter
CPT/HCPCS: 78306; A9561

== ENCOUNTER 2020-10-21 12:47 | Outpatient (CLI) | payer MEDICARE, SELFPAY ==
--- NOTE | 2020-10-21 13:05 | XR_ITS ---
WS: [id number] DEXA (DUAL ENERGY X-RAY ABSORPTIOMETRY) Bone mineral density was performed using a [employer] machine. HISTORY: ASYMPTOMATIC MENOPAUSAL STATUS COMPARISON: 08/21/2019 Lumbar spine BMD (L1-L4): 0.892 g/cm2 T score: -2.4 Z score: -1.1 Total hip BMD: Left: 0.788 g/cm2. T score: -1.7 Z score: -0.7 Right: 0.807 g/cm2. T score: -1.6 Z score: -0.6 10 year probability of a major osteoporotic fracture is 30%. Compared to the prior study from 08/29/2019. Lumbar spine bone mineral density has decrease by 0.6%. Bilateral hips bone mineral density has decreased by 3.4%. XR/XR DEXA axial skeleton* 48980 IMPRESSION: OSTEOPENIA based upon the WHO classification for females. Compared to the prior examination there has been a significant decrease in bone mineral density within the hips.
== END 2020-10-21 12:48 | disposition home or self-care (01) ==
LOC: RADWPI 12:52
PROVIDERS: PCP Internal Medicine; Visit Provider Internal Medicine
DX: Z78.0 Asymptomatic menopausal state (principal); M85.88 Other specified disorders of bone density and structure, other site
CPT/HCPCS: 77080

== ENCOUNTER 2020-10-25 12:20 | Emergency (ER) | payer MEDICARE, SELFPAY ==
[2020-10-25 12:28] VITALS: BP 125/67; PULSE 63; RESP 14; TEMP 36.7; O2SAT 98; BMI 21.6
--- NOTE | 2020-10-25 12:30 | XR_ITS ---
WS: [id number] LEFT KNEE: 3 VIEW(S) TECHNIQUE: AP, oblique(s) and lateral. HISTORY: fall COMPARISON: 01/16/2018 No fracture or dislocation. No joint space narrowing or osteophytes. No joint effusion. No soft tissue abnormality. XR/XR knee LT 3V* [id number] IMPRESSION: Normal LEFT knee.
--- NOTE | 2020-10-25 12:31 | W.ED.EXTPRO ---
HPI - Extremity Problem General: Chief complaint: Extremity Injury, Lower Stated complaint: FELL SUNDAY, INJURED L KNEE Time Seen by Provider: 10/25/20 12:22 Source: patient Mode of arrival: ambulatory Limitations: no limitations History of Present Illness: HPI Narrative: Patient is a 60-year-old female who was walking her dog about 4 days ago when the dog pulled on its leash and the patient fell and landed on her left knee. She has severe pain in the left knee and also some pain in the left hip. She is still able to ambulate but it hurts to walk. She denies any swelling of the knee. She is here to be evaluated. MD Complaint: extremity pain and joint pain Onset (ago): day(s) (4) Pain Consistency: constant Location: left and knee Quality: sharp Radiation: none Relieving factors: nothing Exacerbating factors: range of motion and weight bearing Associated symptoms: Deny arthralgias, chest pain, fever(s), myalgias, rash or short of breath Review of Systems General: Reports: 10 or more systems reviewed and unremarkable except in HPI and below Const: Denies: fever(s) Eyes: Denies: change in vision or blurry vision ENMT: Denies: throat pain, enlarged tonsils, odynophagia, hoarseness, mouth pain or swelling of lips/tongue Card: Denies: chest pain Resp: Denies: dyspnea, productive cough or non-productive cough GI: Denies: abdominal pain, nausea or vomiting : Denies: flank pain, difficulty voiding, dysuria, urinary frequency, urinary urgency or urinary hesitancy Musc: Denies: neck pain, back pain or extremity swelling Skin/Breast: Denies: rash Neuro: Denies: headache(s), numbness in extremities or weakness in extremities Endo: Denies: polyuria, polydipsia or tired all the time PFS ED PFSH: Medical History (Updated 10/25/20 @ 13:42 by Amada Terry MD, [facility] [place]) Cervical post-laminectomy syndrome (~07/04/16) Displacement of lumbar intervertebral disc SHE WILL NOTIFY NEUROSURGERY CLINIC IF/WHEN SHE WISHES TO FOLLOW-UP Generalized anxiety disorder Hx of fracture of clavicle repair fx collar bone. Hx of rotator cuff tear surgery, left Intervertebral disc disorder with radiculopathy of lumbosacral region Low back pain of over 3 months duration Major depressive disorder, recurrent, in partial remission Nicotine dependence, cigarettes, uncomplicated Surgical History (Reviewed 10/25/20 @ 12:32 by Amada Terry MD, [facility] [place]) History of cervical spinal surgery (~07/04/16) Dr. Mujica, C5-C6 ACDFF History of cholecystectomy History of hysterectomy (~1979) History of shoulder surgery (~04/04/16) rotator cuff repair, right Family History (Reviewed 10/25/20 @ 12:32 by Amada Terry MD, [facility] [place]) Mother Parkinsons disease Father Myocardial infarction Social History (Reviewed 10/25/20 @ 12:32 by Amada Terry MD, [facility] [place]) Smoking and tobacco status: current every day smoker cigarettes Packs smoked per day: 1 Alcohol intake: never Household members: spouse Marital status: Current occupational status: unemployed and retired History of recent travel: No Physical Exam Const: COMMON NORMALS: no acute distress, average body habitus, patient oriented x3, no limitations, healthy appearing, alert and well nourished HENMT: COMMON NORMALS: normocephalic, atraumatic and moist oral mucous membranes HEAD & SCALP: normocephalic and atraumatic Neck/C-Spine: COMMON NORMALS: full ROM, supple, no meningeal signs, no JVD and No carotid bruits Resp: COMMON NORMALS: normal respiratory effort, No retractions, No use of accessory muscles, clear to auscultation bilaterally and percussion normal AUSCULTATION: clear to auscultation bilaterally PERCUSSION: percussion normal Cardio: COMMON NORMALS: no JVD, regular rate, regular rhythm, S1 normal heart sound present, S2 normal heart sound present, No gallops present (Cardio), No clicks present (Cardio), No murmurs present (Cardio), No rub (Cardio) and Peripheral pulses 2+ throughout RATE: regular rate RHYTHM: regular rhythm HEART SOUNDS: S1 normal heart sound present and S2 normal heart sound present PERIPHERAL PULSES: Peripheral pulses 2+ throughout GI: COMMON NORMALS: Normal to inspection, nondistended, normoactive bowel sounds present, Soft to palpation, non-tender, No hepatosplenomegaly present, no masses and no bruits PALPATION: Yes Soft to palpation and Yes No hepatosplenomegaly present Extremity: COMMON NORMALS: normal to inspection, full ROM, capillary refill normal, no calf tenderness and no pedal edema LEFT LOWER EXTREMITY: Yes hip joint (3 cm oval bruise noted. Mild tenderness to the lateral part) Left hip: Yes ROM (Full range of motion) and Yes knee joint (Old bruise about 4 cm noted on the anterior knee. Generalized knee tendern) Left knee: Yes palpation (Tender to palpation to all parts of the knee.) and Yes neurovascular exam (Intact) Neuro: COMMON NORMALS: patient oriented x3 SENSORIUM/ORIENTATION: Yes alert MENINGEAL SIGNS: Yes no meningeal signs Skin: COMMON NORMALS: no rashes or lesions noted, no wounds, turgor normal, no jaundice, no petechiae and no mottling GENERAL SKIN EXAM: no rashes or lesions noted and turgor normal Course Reevaluation(s): Reevaluation #1: Discussed the imaging findings with her. Negative for fracture or dislocation. Advised conservative measures with acetaminophen/ibuprofen and heat/ice whichever when she prefers. Advised her to rest the knee and gradually return to the level of activities over the next few days. She voiced understanding and is in agreement with the plan. Time: 13:41 Vital Signs: Vital signs: Vital Signs Temperature 98.1 F 10/25/20 12:28 Pulse Rate 63 10/25/20 12:28 Respiratory Rate 14 10/25/20 12:28 Blood Pressure 125/67 10/25/20 12:28 Pulse Oximetry 98 10/25/20 12:28 MDM - Extremity (Nontraumatic) MDM Narrative: Medical decision making narrative: Patient who had a fall 4 days ago and now has knee and hip pain on the left. Examination is unremarkable and imaging was also negative. She is discharged home on conservative measures. Medical Records: Attestation: I reviewed the patient's medical records. Imaging Data^: Xray Ortho: Attestation: I personally reviewed and interpreted this imaging study as follows: Radiologist's impression: [address] [place] [address] XRay Report Signed Patient: Liana Luevano #: [id number] : 1Acct#:[id number] Age/Sex: 60 / FADM Date: 10/25/20 Loc: ERRoom/Bed: Attending Dr: Ordering Provider/Ordering MD: Amada Terry MD, [facility] [place] Date of Service: 10/25/20 Procedure(s): XR hip LT 2-3V wo/w pel* 48882 Accession Number(s): [id number] Report Number: [id number] WS: [id number] LEFT HIP HISTORY: fall COMPARISON: None available. LEFT hip: No acute fracture or dislocation. No soft tissue abnormality. No dislocation. XR/XR hip LT 2-3V wo/w pel* 16511 IMPRESSION: 1. No hip fracture. 2. Negative LEFT hip. Dictated By:Mia Hill DO Signed By:Mia Hill DOSigned Date/Time:10/25/20 1344 DD/ [address] [address] XRay Report Signed Patient: Liana Luevano #: [id number] : 1960cct#:[id number] Age/Sex: 60 / FADM Date: 10/25/20 Loc: ERRoom/Bed: Attending Dr: Ordering Provider/Ordering MD: Amada Terry MD, [facility] [place] Date of Service: 10/25/20 Procedure(s): XR knee LT 3V* 76843 Accession Number(s): [id number] Report Number: [id number] WS: [id number] LEFT KNEE: 3 VIEW(S) TECHNIQUE: AP, oblique(s) and lateral. HISTORY: fall COMPARISON: 01/16/2018 No fracture or dislocation. No joint space narrowing or osteophytes. No joint effusion. No soft tissue abnormality. XR/XR knee LT 3V* 22120 IMPRESSION: Normal LEFT knee. Dictated By:Mia Hill DO Signed By:Mia Hill DOSigned Date/Time:10/25/20 1344 DD/ 1343 Discharge Plan Discharge Patient Disposition: Home Clinical Impression: Acute pain of left knee, Acute pain of left hip Fall Qualifiers: Encounter type: initial encounter Qualified Code(s): W19.XXXA - Unspecified fall, initial encounter Condition: Stable Prescriptions: Continued montelukast 10 mg tablet 10 mg PO DAILY RF: 0 levothyroxine 25 mcg capsule 25 mcg PO DAILY RF: 0 cholecalciferol (vitamin D3) 1,000 unit capsule 1,000 unit PO BID RF: 0 (DME) [facility] Joint Brace See Rx Instructions .ROUTE .MEDSUPPLY Qty: 1 RF: 0 venlafaxine [Effexor XR] 75 mg capsule,extended release 24hr 75 mg PO QAM Qty: 90 RF: 2 amitriptyline 25 mg tablet 25 mg PO BEDTIME Qty: 90 RF: 2 albuterol sulfate [Ventolin HFA] 90 mcg/actuation HFA aerosol inhaler 2 puff INHALATION QID PRN (Reason: Shortness Of Breath Or Wheezing) RF: 0 [place] 7.5-325 mg tablet 1 tab PO Q4H Qty: 30 RF: 0 [place] 5-325 mg tablet 1 tab PO Q6H Qty: 12 RF: 0 ondansetron HCl [Zofran] 8 mg tablet 8 mg PO Q8H PRN (Reason: Nausea) RF: 0 Discharge Orders: Discharge ED (Routine); Ordered 10/25/20 Ordered By: Amada Terry Referrals: Samantha Evans MD [Primary Care Provider] - 1-3 days Discharge Diet: Usual diet Discharge Activity: Increase activity as tolerated Patient Instructions: Knee Pain (ED), Fall Prevention (ED) Activity Restrictions/Additional Instructions: Return for any new or worsening symptoms. Follow-up with your primary care provider within 3 days. Rest your knee and hip for the next 1 to 2 days then gradually return to your prior level of activity. Take Tylenol or ibuprofen as needed for pain. Apply ice or heating pad to the affected areas, whichever 1 you feel more comfortable. Apply no longer than 15 minutes at a time and with at least 20 minutes interval between applications. Coding Level of Care Code ED [place] Clerk for [place] Fwd Exam Comprehensive
--- NOTE | 2020-10-25 12:42 | XR_ITS ---
WS: [id number] LEFT HIP HISTORY: fall COMPARISON: None available. LEFT hip: No acute fracture or dislocation. No soft tissue abnormality. No dislocation. XR/XR hip LT 2-3V wo/w pel* 70110 IMPRESSION: 1. No hip fracture. 2. Negative LEFT hip.
== END 2020-10-25 14:25 | disposition home or self-care (01) ==
PROVIDERS: Emergency Provider Family Medicine; PCP Internal Medicine
DX: M25.562 Pain in left knee (principal); M25.552 Pain in left hip; F17.210 Nicotine dependence, cigarettes, uncomplicated
CPT/HCPCS: 73502; 73562; 99283

== ENCOUNTER → 2020-11-22 07:47 | Outpatient (BNVA) | payer MEDICARE, SELFPAY | PROVIDERS: PCP Internal Medicine; Visit Provider Nurse Practitioner Psychiatric/Mental Health | DX: F33.41 Major depressive disorder, recurrent, in partial remission (principal); F41.1 Generalized anxiety disorder; F17.210 Nicotine dependence, cigarettes, uncomplicated | CPT/HCPCS: 99213 ==

== ENCOUNTER 2020-11-23 15:35 | Outpatient (CLI) | payer MEDICARE, SELFPAY ==
--- NOTE | 2020-11-23 16:12 | MR_ITS ---
WS: [id number] MRI LEFT KNEE NONCONTRAST TECHNIQUE: Axial PD, coronal PD fat sat, coronal PD, sagittal PD, and sagittal PD fat-sat images obta ined. CLINICAL INFORMATION: LEFT KNEE PAIN COMPARISON: None. FINDINGS: Distal quadriceps and patella tendons are intact. Normal ACL and PCL. Normal bone marrow signal in th e distal femoral condyles and tibial plateau. Mild tricompartmental arthritis. Medial and lateral men iscus are normal in appearance. No acute appearing meniscal tears. Moderate chondromalacia patella. No subchondral edema. Soft tissue edema involving the joint line sof t tissues. Bilobed lobulated 9 x 17 millimeters and 7 x 4 x 20 mm popliteal cyst. Mild chondromalacia involving the medial and lateral joint compartments. Medial and lateral collatera l ligaments are intact. No other significant findings. MR/MR knee LT wo con* 53451 IMPRESSION: 1. Normal ACL and PCL. 2. Mild chronic thinning of the medial and lateral meniscus. No acute appearin g meniscal tears. 3. Mild tricompartmental arthritis. Moderate chondromalacia patella. 4. Small lobulated popliteal cysts described above. 5. Medial and lateral collateral ligaments are intact.
== END 2020-11-23 15:36 | disposition home or self-care (01) ==
LOC: RADSHAW 15:38
PROVIDERS: PCP Internal Medicine; Visit Provider Nurse Practitioner Family
DX: M71.22 Synovial cyst of popliteal space [Baker], left knee (principal); M13.862 Other specified arthritis, left knee; M22.42 Chondromalacia patellae, left knee
CPT/HCPCS: 73721

== ENCOUNTER → 2020-12-02 11:24 | Outpatient (BNVA) | payer MEDICARE, SELFPAY | PROVIDERS: PCP Internal Medicine; Referring Provider Nurse Practitioner Family; Visit Provider Specialist | DX: M25.569 Pain in unspecified knee (principal); M25.512 Pain in left shoulder | CPT/HCPCS: 73560; 73565; 97760; L1812 ==

== ENCOUNTER 2020-12-02 15:13 | Outpatient (CLI) | payer MEDICARE, SELFPAY | END 2020-12-02 15:14 | disposition home or self-care (01) | LOC: SPT 15:13 | PROVIDERS: PCP Internal Medicine; Visit Provider Specialist | DX: M25.512 Pain in left shoulder (principal) | CPT/HCPCS: 97760; L1812 ==

== ENCOUNTER 2020-12-10 06:00 | Outpatient (RCR) | payer MEDICARE, SELFPAY | END 2021-01-07 23:59 | disposition home or self-care (01) | LOC: SPT 06:00 | PROVIDERS: PCP Internal Medicine; Referring Provider Specialist; Visit Provider Specialist | DX: M25.562 Pain in left knee (principal) | CPT/HCPCS: 97110; 97161 ==

== ENCOUNTER 2020-12-14 18:02 | Emergency (ER) | payer SELFPAY ==
[2020-12-14 18:37] VITALS: BP 127/72; PULSE 77; RESP 18; TEMP 37.1; O2SAT 98; BMI 21.9
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
--- NOTE | 2020-12-14 20:08 | PC.NURSE ---
no answer when calling for patient at 2008
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
[2020-12-14] MEDS: HYDROcodone-acetaminophen 7.5-325 mg Tablet 1 TAB PO (21:04)
[2020-12-14 21:56] VITALS: BP 134/76; PULSE 66; RESP 16; O2SAT 96
== END 2020-12-14 21:57 | disposition home or self-care (01) ==
PROVIDERS: Emergency Provider Physician Assistant; PCP Internal Medicine
DX: R07.81 Pleurodynia (principal); V89.2XXA Person injured in unspecified motor-vehicle accident, traffic, initial encounter; F17.210 Nicotine dependence, cigarettes, uncomplicated
CPT/HCPCS: 71101; 73030; 99283

== ENCOUNTER → 2021-01-04 09:36 | Outpatient (BNVA) | payer MEDICARE, SELFPAY | PROVIDERS: PCP Internal Medicine; Visit Provider Nurse Practitioner Psychiatric/Mental Health | DX: F33.41 Major depressive disorder, recurrent, in partial remission (principal); F41.1 Generalized anxiety disorder; F17.210 Nicotine dependence, cigarettes, uncomplicated | CPT/HCPCS: 99214 ==

== ENCOUNTER 2021-01-08 06:00 | Outpatient (RCR) | payer MEDICARE, SELFPAY | END 2021-02-07 23:59 | disposition home or self-care (01) | LOC: SPT 06:00 | PROVIDERS: PCP Internal Medicine; Referring Provider Specialist; Visit Provider Specialist | DX: M25.562 Pain in left knee (principal) | CPT/HCPCS: 97110 ==

== ENCOUNTER → 2021-02-01 10:12 | Outpatient (BNVA) | payer MEDICARE, SELFPAY | PROVIDERS: PCP Internal Medicine; Visit Provider Nurse Practitioner Psychiatric/Mental Health | DX: F33.41 Major depressive disorder, recurrent, in partial remission (principal); F41.1 Generalized anxiety disorder; F17.210 Nicotine dependence, cigarettes, uncomplicated | CPT/HCPCS: 99214 ==

== ENCOUNTER 2021-02-03 09:11 | Outpatient (CLI) | payer MEDICARE, SELFPAY ==
--- NOTE | 2021-02-03 09:30 | MR_ITS ---
WS: [id number] MRI NECK with and without contrast CONTRAST. COMPARISON: None Multiplanar, multisequence imaging is performed with and without contrast. History: Mass LEFT side of neck close to the ear. No focal mass or abnormal signal is noted along the LEFT neck in the area the palpable nodule. Unrema rkable appearance of the soft tissues and parotid gland. No adenopathy is identified. No abnormal enh ancement. There are few benign-appearing lymph nodes along the cervical chains. Prior cervical fusion hardware. MR/MR orbit face neck wo/w* [id number] IMPRESSION: 1. No mass identified along the LEFT neck to correspond to the palpable area. There are no suspicious lymph nodes. 2. If there is a focal discrete definable mass consider ultrasound evaluation.
[2021-02-03] MEDS: gadobenate dimeglumine 20 mL vial IV (10:10)
== END 2021-02-03 09:12 | disposition home or self-care (01) ==
PROVIDERS: PCP Internal Medicine; Visit Provider Specialist
DX: R22.1 Localized swelling, mass and lump, neck (principal)
CPT/HCPCS: 70543; A9577

== ENCOUNTER → 2021-03-08 09:43 | Outpatient (BNVA) | payer MEDICARE, SELFPAY | PROVIDERS: PCP Internal Medicine; Visit Provider Nurse Practitioner Psychiatric/Mental Health | DX: F33.41 Major depressive disorder, recurrent, in partial remission (principal); F41.1 Generalized anxiety disorder; F17.210 Nicotine dependence, cigarettes, uncomplicated | CPT/HCPCS: 99214 ==

== ENCOUNTER → 2021-03-17 14:31 | Outpatient (BNVA) | payer MEDICARE, SELFPAY | PROVIDERS: PCP Internal Medicine; Visit Provider Podiatrist Foot & Ankle Surgery | DX: M79.673 Pain in unspecified foot (principal); M79.671 Pain in right foot | CPT/HCPCS: 73630; L4361 ==

== ENCOUNTER 2021-03-17 15:27 | Outpatient (CLI) | payer MEDICARE, SELFPAY | END 2021-03-17 15:28 | disposition home or self-care (01) | LOC: SPT 15:28 | PROVIDERS: PCP Internal Medicine; Visit Provider Podiatrist Foot & Ankle Surgery | DX: M79.671 Pain in right foot (principal) | CPT/HCPCS: L4361 ==

== ENCOUNTER 2021-03-31 11:04 | Outpatient (CLI) | payer MEDICARE, SELFPAY ==
--- NOTE | 2021-03-31 11:12 | CT_ITS ---
WS: [id number] LDCT LUNG CANCER SCREENING TECHNIQUE: Noncontrast CT of the chest with coronal and sagittal reformatted images. CLINICAL INFORMATION: NICOTINE DEPENDENCE COMPARISON: March 05, 2020 DLP: 51.81 mGy.cm DIvol: 1.[address] scans at [facility] use at least one of these dose optimization techniques: automat ed exposure control; mA and/or kV adjustment per patient size (includes targeted exams where dose is matched to clinical indication); or iterative reconstruction. FINDINGS: Moderate chronic emphysematous changes. No acute pulmonary infiltrates. No suspicious pulmonary paren chymal abnormalities. No mediastinal or hilar lymphadenopathy. Normal caliber thoracic aorta. Small e sophageal hiatal hernia. Cholecystectomy clips. Prior postoperative changes left clavicle. CT/CT lung screening [id number] IMPRESSION: LUNG-RADS: 1-Negative FOLLOW UP: 12 Month: Continue annual screening with LDCT
== END 2021-03-31 11:05 | disposition home or self-care (01) ==
PROVIDERS: PCP Internal Medicine; Visit Provider Internal Medicine
DX: Z12.2 Encounter for screening for malignant neoplasm of respiratory organs (principal); F17.210 Nicotine dependence, cigarettes, uncomplicated
CPT/HCPCS: 71271

== ENCOUNTER → 2021-04-18 14:29 | Outpatient (BNVA) | payer MEDICARE, SELFPAY | PROVIDERS: PCP Internal Medicine; Visit Provider Podiatrist Foot & Ankle Surgery | DX: M79.673 Pain in unspecified foot (principal); Z46.89 Encounter for fitting and adjustment of other specified devices; M76.70 Peroneal tendinitis, unspecified leg | CPT/HCPCS: 73630; 97760; L1902 ==

== ENCOUNTER 2021-04-18 15:29 | Outpatient (CLI) | payer MEDICARE, SELFPAY | END 2021-04-18 15:30 | disposition home or self-care (01) | LOC: SPT 15:30 | PROVIDERS: PCP Internal Medicine; Visit Provider Podiatrist Foot & Ankle Surgery | DX: Z46.89 Encounter for fitting and adjustment of other specified devices (principal); M76.70 Peroneal tendinitis, unspecified leg | CPT/HCPCS: 73630; 97760; L1902 ==

== ENCOUNTER → 2021-05-04 10:44 | Outpatient (BNVA) | payer MEDICARE, SELFPAY | PROVIDERS: PCP Internal Medicine; Visit Provider Nurse Practitioner Psychiatric/Mental Health | DX: F33.41 Major depressive disorder, recurrent, in partial remission (principal); F41.1 Generalized anxiety disorder; F17.210 Nicotine dependence, cigarettes, uncomplicated | CPT/HCPCS: 99214 ==

== ENCOUNTER 2021-05-05 11:21 | Outpatient (CLI) | payer MEDICARE, SELFPAY ==
[2021-05-05 12:04] LABS: Basophils # 0.1 10^3/uL (0.0-0.1); Basophils % 0.7 %; Eosinophils # 0.2 10^3/uL (0.0-0.8); Eosinophils % 2.7 %; Hemoglobin 12.4 g/dL (11.5-15.3); Lymphocytes # 3.5 10^3/uL (0.8-4.8); Lymphocytes % 39.7 %; Mean Corpuscular HGB Conc 33.5 g/dL (30.0-36.0); Mean Corpuscular Hemoglobin 31.6 pg (28.0-34.0); Mean Corpuscular Volume 94.1 fl (81-99); Mean Platelet Volume 9.6 fL (7.4-10.4); Monocytes # 0.8 10^3/uL (0.2-0.9); Monocytes % 9.4 %; Neutrophils # 4.13 10^3/uL (1.8-7.7); Neutrophils % 47.3 %; Nucleated Red Blood Cells % 0 %; Platelet Count 296 10^3/cmm (130-400); Red Blood Count 3.93 10^6/uL (4.1-5.3); Red Cell Distribution Width 14.7 % (12.1-15.1); White Blood Count 8.7 10^3/uL (4.0-10.0)
[2021-05-05 12:15] LABS: Bilirubin Urine Neg (Negative); Blood Urine 3+ (Negative); Glucose Urine UA Norm (Normal); Ketones Urine Negative (Negative); Nitrate Urine Negative (Negative); Protein Urine Neg (Negative); Urine Appearance Clear (CLEAR); Urine Color Straw (Yellow); pH Urine 5 (5-7)
[2021-05-05 12:16] LABS: Add Urine Microscopic? YES; Leukocyte Esterase Urine 2+ (Negative); Urobilinogen Urine Neg (Negative)
[2021-05-05 12:17] LABS: Add Urine Culture? Yes; Bacteria Urine 1+ /hpf; Squamous Epithelial Cell Urine 0-4 /hpf (0-5)
[2021-05-05 12:22] LABS: Alanine Aminotransferase 10 U/L (0-33); Albumin Level 3.7 g/dL (3.5-5.2); Alkaline Phosphatase 100 IU/L (35-105); Anion Gap 11.9 (5-19); Aspartate Amino Transferase 12 U/L (0-32); Blood Urea Nitrogen 7 mg/dL (6-20); Calcium 9.1 mg/dL (8.5-10.5); Carbon Dioxide 26 mmol/L (22-29); Chloride 105 mmol/L (98-107); Globulin 2.6 g/dL (1.3-4.6); Glomerular Filtration Rate 73.4 mL/min (90-130); Glucose 94 mg/dL (65-115); Osmolality Calculated 286 mOsm/kg (285-295); Potassium 3.9 mmol/L (3.5-5.1); Sodium 139 mmol/L (136-145); Total Bilirubin 0.2 mg/dL (0.15-1.2); Total Protein 6.3 g/dL (6.6-8.7)
[2021-05-05 12:54] LABS: Erythrocyte Sedimentation Rate 24 mm/hr (0-15)
[2021-05-05 13:01] LABS: Thyroid Stimulating Hormone 1.28 uIU/mL (0.27-4.20)
== END 2021-05-05 11:22 | disposition home or self-care (01) ==
LOC: LAB 11:25
PROVIDERS: PCP Internal Medicine; Visit Provider Specialist
DX: R42 Dizziness and giddiness (principal)
CPT/HCPCS: 36415; 80053; 81001; 84443; 85025; 85651; 86780

== ENCOUNTER 2021-05-17 14:39 | Outpatient (CLI) | payer MEDICARE, SELFPAY ==
--- NOTE | 2021-05-17 14:45 | MR_ITS ---
WS: [id number] MRI HEAD WITH CONTRAST WITH ATTENTION TO THE INTERNAL AUDITORY CANALS TECHNIQUE: Sagittal T1, T2 axial, T2 axial flair, axial susceptibility weighted imaging, axial diffus ion weighted images, and coronal T2 images were obtained. Pre and post T1 axial and post T1 coronal i mages. ADC and FSPGR images. Post gadolinium images with attention to the internal auditory canals. A xial fiesta imaging. CLINICAL INFORMATION: DIZZINESS AND GIDDINESS COMPARISON: None. FINDINGS: No evidence of restricted diffusion to suggest acute ischemia. Ventricular system and basal cisterns are patent. Mild small vessel changes. Mild parenchymal volume loss. Normal posterior fossa. Normal v ascular flow voids at the skull base. No extra-axial fluid collections. No evidence of mass or mass e ffect. Paranasal sinuses and mastoid air cells are well aerated. Mild mucosal thickening left mastoid tip. No hemosiderin on susceptibly weighted images. Proximal 7th and 8th cranial nerves are normal in appe arance. No evidence of enhancing IAC or CP angle mass. Normal trigeminal nerve root entry zones. No a bnormal intracranial enhancement. Normal dural venous sinuses. MR/MR iac's wo/w con* [id number] IMPRESSION: 1. No evidence of enhancing IAC or CP angle mass. Normal trigeminal nerve root entry zones. 2. Normal optic chiasm and pituitary infundibulum. 3. No evidence of restricted diffusion to suggest acute ischemia. 4. Mild small vessel changes with mild parenchymal volume loss. 5. Paranasal sinuses are well aerated. Mild mucosal thickening left mastoid ti p. 6. No other significant findings.
[2021-05-17] MEDS: gadobenate dimeglumine 20 mL vial IV (15:41)
== END 2021-05-17 14:40 | disposition home or self-care (01) ==
LOC: RADSHAW 14:43
PROVIDERS: PCP Internal Medicine; Visit Provider Specialist
DX: R42 Dizziness and giddiness (principal)
CPT/HCPCS: 70553; A9577

== ENCOUNTER → 2021-05-23 13:35 | Outpatient (BNVA) | payer SELFPAY | PROVIDERS: PCP Internal Medicine; Visit Provider Podiatrist Foot & Ankle Surgery | DX: M79.673 Pain in unspecified foot (principal); M76.70 Peroneal tendinitis, unspecified leg | CPT/HCPCS: 73630 ==

== ENCOUNTER 2021-05-27 10:49 | Outpatient (CLI) | payer MEDICARE, SELFPAY ==
--- NOTE | 2021-05-27 10:51 | MM_ITS ---
WS: [id number] BILATERAL SCREENING DIGITAL MAMMOGRAM WITH CAD HISTORY: SCREENING COMPARISON: 04/19/2020, 03/20/2019, 02/28/2018 and 02/26/2017 Bilateral CC and MLO views submitted. Computer aided detection analyzed. Breast composition: There are scattered areas of fibroglandular density. No suspicious masses, microc alcifications or architectural distortion. There are scattered ill-defined nodules in the upper outer quadrants of each breast. Over multiple prior years these are unchanged. MM/[place] [id number] IMPRESSION: BI-RADS: 2-Benign FOLLOW UP: 1 Year Follow-up
== END 2021-05-27 10:50 | disposition home or self-care (01) ==
LOC: RADSHAW 10:50
PROVIDERS: PCP Internal Medicine; Visit Provider Internal Medicine
DX: Z12.31 Encounter for screening mammogram for malignant neoplasm of breast (principal); K92.1 Melena
CPT/HCPCS: 77067; 82272; 82274

== ENCOUNTER 2021-07-12 09:00 | Outpatient (CLI) | payer MEDICARE, SELFPAY ==
--- NOTE | 2021-07-12 09:08 | XRR_ITS ---
PROCEDURE INFORMATION: Exam: XR Left Shoulder Exam date and time: 07/12/2021 9:08 AM Age: 60 years old Clinical indication: Pain; Prior surgery; Surgery type: Left clavicle; Patient HX: Having popping in shoulder x 2 weeks; Additional info: Left shoulder joint pain TECHNIQUE: Imaging protocol: XR Left shoulder. Views: 2 or more views. COMPARISON: CR XR shoulder LT min 2V* [id number] 12/14/2020 8:50 PM FINDINGS: Bones/joints: Stable appearance of left clavicle ORIF hardware. No evidence of hardware related complication. No acute fracture or dislocation seen. The joint spaces are well maintained. Cervical spine fusion hardware is also noted. Soft tissues: Normal. XR/XR shoulder LT min 2V* [id number] IMPRESSION: 1. No acute injury. 2. Stable appearance of left clavicular ORIF hardware. Radiation Dose CTDIVOL = (mGy): DLP = (mGy-cm)
== END 2021-07-12 09:01 | disposition home or self-care (01) ==
LOC: RAD 09:05
PROVIDERS: PCP Internal Medicine; Visit Provider Nurse Practitioner Family
DX: M25.551 Pain in right hip (principal)
CPT/HCPCS: 73030

== ENCOUNTER 2021-07-21 10:30 | Outpatient (CLI) | payer MEDICARE, SELFPAY ==
--- NOTE | 2021-07-21 10:37 | XR_ITS ---
WS: [id number] Right shoulder, 2 views, 07/21/2021 Clinical Data: RIGHT SHOULDER PAIN Comparison: Right shoulder, 06/28/2017. Findings: No fractures or dislocations are seen. The AC joint is normal. The adjacent right clavicle, right sca pula and ribs are normal. The soft tissues are unremarkable. There is an anterior cervical disc fusion. XR/XR shoulder RT min 2V* [id number] Impression: Negative right shoulder.
== END 2021-07-21 10:31 | disposition home or self-care (01) ==
LOC: RAD 10:33
PROVIDERS: PCP Internal Medicine; Visit Provider Nurse Practitioner Family
DX: M25.511 Pain in right shoulder (principal)
CPT/HCPCS: 73030

== ENCOUNTER 2021-07-24 10:13 | Emergency (ER) | payer MEDICARE, SELFPAY ==
[2021-07-24 10:28] VITALS: BP 129/86; PULSE 69; RESP 18; TEMP 36.1; O2SAT 99; BMI 22.3
--- NOTE | 2021-07-24 11:33 | ED_ITS ---
HPI - Extremity Problem General: Chief complaint: Extremity Problem,Nontraumatic Stated complaint: R SHOULDER PAIN Time Seen by Provider: 07/24/21 10:34 History of Present Illness: HPI Narrative: Patient is a 60-year-old female comes to the ED with acute on chronic right shoulder pain. Patient says 2 weeks ago she was taking her dog out for a walk and the dog pulled on the leash causing her to strain her right arm. Ever since then she has had pain in her right shoulder. It hurts for her to do any abduction of her right arm. She rates her pain a 10 out of 10. She takes Tylenol at home to help with pain. Patient says she had an x-ray of her right shoulder done on July 21 and it did not show any fractures. Denies any reinjury since last x-ray. She is in the process of getting set up with orthopedic for further evaluation of right shoulder and possible MRI/CT. Associated symptoms: Deny chest pain, fever(s) or rash Review of Systems 2 Const: Denies: fever(s), chills or fatigue Eyes: Denies: change in vision or eye discomfort ENMT: Denies: throat pain, odynophagia, nasal discharge or nasal congestion Card: Denies: chest pain, palpitations, edema, swelling of feet/ankles, dyspnea on exertion or orthopnea Resp: Denies: dyspnea, productive cough or non-productive cough GI: Denies: abdominal pain, nausea, vomiting, diarrhea, constipation or hematochezia : Denies: flank pain, dysuria or hematuria Musc: Reports: extremity pain (Right shoulder) and limited range of motion (Right shoulder abduction of arm); Denies: neck pain, back pain or extremity swelling Skin/Breast: Denies: rash or new lesions Neuro: Denies: headache(s), numbness in extremities or weakness in extremities PFS ED PFSH: Medical History Cervical post-laminectomy syndrome (~07/04/16) Displacement of lumbar intervertebral disc SHE WILL NOTIFY NEUROSURGERY CLINIC IF/WHEN SHE WISHES TO FOLLOW-UP Generalized anxiety disorder Hx of fracture of clavicle repair fx collar bone. Hx of rotator cuff tear surgery, left Intervertebral disc disorder with radiculopathy of lumbosacral region Low back pain of over 3 months duration Major depressive disorder, recurrent, in partial remission Nicotine dependence, cigarettes, uncomplicated Surgical History History of cervical spinal surgery (~07/04/16) Dr. Mujica, C5-C6 ACDFF History of cholecystectomy History of hysterectomy (~1979) History of shoulder surgery (~04/04/16) rotator cuff repair, right Family History Mother Parkinsons disease Father Myocardial infarction Social History Smoking and tobacco status: current every day smoker cigarettes Packs smoked per day: 1 Alcohol intake: never Household members: spouse Marital status: Current occupational status: unemployed and retired History of recent travel: No Physical Exam Narrative: EXAM NARRATIVE: Patient presents to the ED in a right arm shoulders playing. She sitting comfortably on exam chair when I entered the room. Const: COMMON NORMALS: no acute distress, patient oriented x3 and alert GENERAL APPEARANCE: cooperative and comfortable HENMT: COMMON NORMALS: normocephalic HEAD & SCALP: normocephalic MOUTH: Normal oral and palatal mucosa present THROAT: posterior oropharynx normal and uvula midline Neck/C-Spine: COMMON NORMALS: supple GENERAL: Yes normal visual inspection Resp: COMMON NORMALS: normal respiratory effort, No retractions, No use of accessory muscles and clear to auscultation bilaterally AUSCULTATION: clear to auscultation bilaterally Cardio: COMMON NORMALS: regular rate, regular rhythm, S1 normal heart sound present, S2 normal heart sound present, No gallops present (Cardio), No clicks present (Cardio), No murmurs present (Cardio) and Peripheral pulses 2+ throughout RATE: regular rate RHYTHM: regular rhythm HEART SOUNDS: S1 normal heart sound present and S2 normal heart sound present PERIPHERAL PULSES: Peripheral pulses 2+ throughout GI: COMMON NORMALS: Normal to inspection, nondistended, normoactive bowel sounds present, Soft to palpation, non-tender and no masses PALPATION: Yes Soft to palpation : COMMON NORMALS: Yes no CVA tenderness BLADDER/KIDNEY EXAM: Yes no CVA tenderness Back/Pelvis: COMMON NORMALS: no CVA tenderness Extremity: RIGHT UPPER EXTREMITY: Yes shoulder joint (Patient has tenderness over AC joint and humeral head) Right shoulder: Yes Right shoulder joint inspection exam (No deformity, ecchymosis, swelling noted.), Yes palpation, Yes Right shoulder joint ROM exam (Limited abduction due to pain) and Yes Right shoulder joint neurovascular exam (Intact) Neuro: COMMON NORMALS: patient oriented x3 and moves all extremities SENSORIUM/ORIENTATION: Yes alert Skin: GENERAL SKIN EXAM: dry skin Course Vital Signs: Vital signs: Vital Signs Temperature 97.0 F L 07/24/21 10:28 Pulse Rate 69 07/24/21 10:28 Respiratory Rate 18 07/24/21 10:28 Blood Pressure 129/86 07/24/21 10:28 Pulse Oximetry 99 07/24/21 10:28 MDM - Extremity (Nontraumatic) MDM Narrative: Medical decision making narrative: Patient is a 60-year-old female comes to the ED with right shoulder pain. Is been going on for the past couple weeks. She had an x-ray of her right shoulder 3 days ago on July 21 and showed no acute findings. She is in the process of getting referred to orthopedic for follow-up evaluation on right shoulder pain. Denies any reinjury or trauma since x-ray of right shoulder on July 21. Patient was in a shoulder sling when she arrived to the ED. She has some tenderness to palpation over her AC joint and humeral head. No swelling, deformity or ecchymosis noted. She has limited abduction of right arm due to pain in shoulder. Neurovascular intact. I did not order an x-ray of her right shoulder since it was done 3 days ago and there is been no acute change since then. I placed an order with case management for patient to be referred to orthopedic for follow-up and reevaluation of right shoulder pain. Return ED precautions given. Patient understood and agree with plan. Medical Records: Attestation: I reviewed the patient's medical records. Medical records narrative: I reviewed patient's shoulder x-ray from 3 days ago on July 21 and it showed no acute fractures or findings. [employer] [address]HHeu ReportSigned Patient: Liana Luevano AUnjosee #: [id number]: 1Acct#:[id number]/Sex: 60 / FADM Date: 07/21/21Loc: RADRoom/Bed:Attending Dr: Jonatan Tariq RN PSYCHIATRIC-C Ordering Provider/Ordering MD: Jonatan Tariq NP Date of Service: 07/21/21 Procedure(s): XR shoulder RT min 2V* [id number] Accession Number(s): [id number] Report Number: [id number] WS: [id number] Right shoulder, 2 views, 07/21/2021 Clinical Data: RIGHT SHOULDER PAIN Comparison: Right shoulder, 06/28/2017. Findings: No fractures or dislocations are seen. The AC joint is normal. The adjacent right clavicle, right scapula and ribs are normal. The soft tissues are unremarkable. There is an anterior cervical disc fusion. XR/XR shoulder RT min 2V* [id number] Impression: Negative right shoulder. Dictated By:Elham Schulz MDSigned By:Elham Schulz MDSigned Date/Time:07/21/211047DD/ 46 Discharge Plan Discharge Patient Disposition: Home Clinical Impression: Injury of right shoulder Qualifiers: Encounter type: subsequent encounter Qualified Code(s): S49.91XD - Unspecified injury of right shoulder and upper arm, subsequent encounter Condition: Stable Prescriptions: No Action montelukast 10 mg tablet 10 mg PO DAILY@0800 RF: 0 levothyroxine 25 mcg capsule 25 mcg PO DAILY@0800 RF: 0 cholecalciferol (vitamin D3) 1,000 unit capsule 1,000 unit PO BID@0800,1600 RF: 0 (DME) cam boot See Rx Instructions .ROUTE .MEDSUPPLY Qty: 1 RF: 0 Spiriva Respimat 2.5 mcg/actuation mist 2 puff inhalation DAILY Qty: 4 RF: 3 amitriptyline 50 mg tablet 50 mg PO .bedtime Qty: 30 RF: 6 naproxen 500 mg tablet 500 mg PO BID 14 Days Qty: 28 RF: 0 albuterol sulfate [Ventolin HFA] 90 mcg/actuation HFA aerosol inhaler 2 puff INHALATION QID PRN (Reason: Shortness Of Breath Or Wheezing) RF: 0 pantoprazole 40 mg tablet,delayed release (DR/EC) 40 mg PO BID@0800,1800 RF: 0 rosuvastatin 20 mg tablet 20 mg PO DAILY@0800 RF: 0 Discharge Orders: Discharge ED (Routine); Ordered 07/24/21 Ordered By: Gus Ackerman Referrals: Samantha Evans MD [Primary Care Provider] - Discharge Diet: Regular Discharge Activity: Increase activity as tolerated Patient Instructions: Shoulder Pain (ED), Opioid Safety Activity Restrictions/Additional Instructions: Follow-up with medical provider as directed. Case management should be contacting you the next several days set up an appointment with orthopedic doctor. Take medications as prescribed. Return to the ER or your medical provider if condition worsens. Please read and understand discharge instructions. Thank you for choosing [facility] for your healthcare needs today. Please realize this is an emergency room and that we are providing you with a medical screening exam and this may not be complete and all inclusive of all the testing and or work up that you may need to determine your ailment or severity of your illness. It is very important that you follow up as instructed or that you return to the Emergency Department should you have concerns or if your condition changes or worsens in any way. Coding Level of Care Code ED Gambling Dealer for Aileen Anderson
[2021-07-24] MEDS: HYDROcodone-acetaminophen 5-325 mg Tablet 1 TAB PO (12:02)
--- NOTE | 2021-07-25 09:56 | DCPLANNER ---
junior assistant manager had message to schedule a follow up appointment for patient with ortho. junior assistant manager called the ortho clinic, spoke with [facility], gave clinic patients information. junior assistant manager was told that patients information would be printed and reviewed. Clinic will call patient with appointment information.
--- NOTE | 2021-07-27 15:01 | DCPLANNER ---
Patient has a follow up appointment scheduled with Dr. Dumont at [facility] for Sunday, September 07, 2021 at 2:00. Clinic will call patient with appointment information.
--- NOTE | 2021-09-08 06:25 | DCPLANNER ---
Patient had a follow up appointment scheduled with ortho - patient did attend appointment.
== END 2021-07-24 12:08 | disposition home or self-care (01) ==
PROVIDERS: Emergency Provider Physician Assistant; PCP Internal Medicine
DX: S49.91XA Unspecified injury of right shoulder and upper arm, initial encounter (principal); F17.210 Nicotine dependence, cigarettes, uncomplicated; X50.9XXA Other and unspecified overexertion or strenuous movements or postures, initial encounter
CPT/HCPCS: 99283

== ENCOUNTER → 2021-07-27 08:49 | Outpatient (BNVA) | payer MEDICARE, SELFPAY | PROVIDERS: PCP Internal Medicine; Visit Provider Nurse Practitioner Psychiatric/Mental Health | DX: F33.41 Major depressive disorder, recurrent, in partial remission (principal); F41.1 Generalized anxiety disorder; F17.210 Nicotine dependence, cigarettes, uncomplicated | CPT/HCPCS: 99214 ==

== ENCOUNTER 2021-07-30 09:51 | Emergency (ER) | payer MEDICARE, SELFPAY ==
[2021-07-30 10:49] VITALS: BP 114/75; PULSE 70; RESP 16; TEMP 36.3; O2SAT 99; BMI 21.6
--- NOTE | 2021-07-30 11:08 | W.ED.EXTPRO ---
HPI - Extremity Problem General: Chief complaint: Extremity Injury, Upper Stated complaint: Injury to Right Shoulder Time Seen by Provider: 07/30/21 09:57 History of Present Illness: HPI Narrative: Ms. Luevano is a 60-year-old lady with significant past medical history of psychiatric disorder who presents to the emergency department department due to concern over right shoulder and possible confusion. She presents with a sling and reports that symptom onset was atraumatic approximately 2 weeks ago. She thinks that maybe she tore her rotator cuff or possibly dislocated her arm though the exact mechanism or etiology for her concerns is unclear. She endorses aching pain that is worse with movement. Moderate intensity. It is unclear if there are any other associated symptoms, exacerbating factors, or alleviating factors. Triage report was that the patient was only oriented x2 and did not know the year. No focal neurologic deficits on clinical exam however patient is a poor historian. Review of Systems General: Reports: 10 or more systems reviewed and unremarkable except in HPI and below PFSH ED PFSH: Medical History Cervical post-laminectomy syndrome (~07/04/16) Displacement of lumbar intervertebral disc SHE WILL NOTIFY NEUROSURGERY CLINIC IF/WHEN SHE WISHES TO FOLLOW-UP Generalized anxiety disorder Hx of fracture of clavicle repair fx collar bone. Hx of rotator cuff tear surgery, left Intervertebral disc disorder with radiculopathy of lumbosacral region Low back pain of over 3 months duration Major depressive disorder, recurrent, in partial remission Nicotine dependence, cigarettes, uncomplicated Psychiatric care Surgical History History of cervical spinal surgery (~07/04/16) Dr. Mujica, C5-C6 ACDFF History of cholecystectomy History of hysterectomy (~1979) History of shoulder surgery (~04/04/16) rotator cuff repair, right Family History Mother Parkinsons disease Father Myocardial infarction Social History Alcohol intake: never Household members: spouse Marital status: Current occupational status: unemployed and retired History of recent travel: No Physical Exam Narrative: EXAM NARRATIVE: GENERAL/CONSTITUTIONAL -chronically ill-appearing. No acute distress. Eyes -no scleral icterus, no conjunctival injection ENMT - Atraumatic external nose and ears. Moist mucous membranes NECK - supple. trachea midline CARDIOVASCULAR - regular rate and rhythm. RESPIRATORY -clear to auscultation bilaterally. ABDOMEN/GI - Nontender/Nondistended. MSK - tenderness and limited range of motion of shoulder. Distal CMS intact. SKIN - Warm, Dry NEURO - alert and appropriately oriented. No cranial nerve deficits. Coordination, gait, strength and sensation intact. Moves all extremities equally. Poor historian. PSYCH -no HI or SI Course ED course: - Patient was seen and evaluated by me at bedside - Patient placed on cardiac monitors, IV access obtained - Initial evaluation notable for exam as noted above -Symptom treatment ordered - Labs notable for no significant hematologic abnormality. No acute electrolyte abnormality or abnormality on ABG to explain patient's symptoms. Delta troponin negative. - Imaging notable for no acute abnormality on head CT, chest x-ray. Shoulder x-ray with abnormalities as noted, no acute fracture identified. Patient presents with sling already placed. - Upon serial reexamination after treatment the patient was improved - Based on patient history, evaluation, labs, and imaging as interpreted the most likely cause of the patient's condition is shoulder pain, baseline mental status changes - The results of ED evaluation were discussed with the patient including prescriptions and/or symptomatic cares (if applicable) including appropriate and responsible use, followup plan, and return precautions. The patient verbalized understanding and felt safe for discharge. - Patient discharged in satisfactory condition. Vital Signs: Vital signs: Vital Signs Temperature 97.3 F L 07/30/21 10:49 Pulse Rate 58 L 07/30/21 15:06 Respiratory Rate 16 07/30/21 15:06 Blood Pressure 117/56 07/30/21 15:06 Pulse Oximetry 97 07/30/21 15:06 MDM - Extremity (Nontraumatic) Medical Records: Attestation: I reviewed the patient's medical records. Lab Data: Attestation: I reviewed the patient's lab results. Labs: Lab Results 07/30/21 07/30/21 07/30/21 11:21 11:52 11:55 WBC 8.1 10^3/uL 10^3/ uL (4.0-10.0) RBC 3.94 10^6/uL L 10 ^6/uL (4.1-5.3) Hgb 12.1 g/dL g/dL (11.5-15.3) Hct 37.1 % % (37.0-47.0) MCV 94.2 fl fl (81-99) MCH 30.7 pg pg (28.0-34.0) MCHC 32.6 g/dL g/dL (30.0-36.0) RDW 13.7 % % (12.1-15.1) Plt Count 296 10^3/cmm 10^3 /cmm (130-400) MPV 9.8 fL fL (7.4-10.4) Neut % (Auto) 46.1 % % Lymph % (Auto) 41.2 % % [place] % (Auto) 8.5 % % Eos % (Auto) 3.1 % % Baso % (Auto) 1.0 % % Neut # (Auto) 3.74 10^3/uL 10^3 /uL (1.8-7.7) Lymph # (Auto) 3.3 10^3/uL 10^3/ uL (0.8-4.8) [place] # (Auto) 0.7 10^3/uL 10^3/ uL (0.2-0.9) Eos # (Auto) 0.3 10^3/uL 10^3/ uL (0.0-0.8) Baso # (Auto) 0.1 10^3/uL 10^3/ uL (0.0-0.1) Nucleated RBC % (a uto) 0 % % Nucleated RBCs # 0.0 /100WBC /100W BC Specimen Type Arterial Sample Site Brachial, left ABG pH 7.37 (7.35-7.45) ABG pCO2 42.0 mmHg mmHg (35-45) ABG pO2 69.9 mmHg L mmHg (80.0-100.0) ABG HCO3 24.3 mmol/L mmol/ L (22-26) ABG Base Excess -1.1 mmol/L mmol/ L (-2.0-2.0) Azael Test N/a Hematocrit 36.3 % L % (37-47) O2 Delivery Device Room air FiO2 21.0 % % Pantry Steward/Stewardess ID Amh Sodium Potassium Chloride Carbon Dioxide Anion Gap BUN Creatinine GFR Calculation Glucose POC Glucose 74 mg/dL mg/dL (70-110) Calculated Osmolal ity Calcium Total Bilirubin AST ALT Alkaline Phosphata se Troponin T Baselin e Troponin T 120 Min paimiut Delta Troponin T Total Protein Albumin Globulin TSH 07/30/21 07/30/21 07/30/21 11:55 11:55 13:57 WBC RBC Hgb Hct MCV MCH MCHC RDW Plt Count MPV Neut % (Auto) Lymph % (Auto) [place] % (Auto) Eos % (Auto) Baso % (Auto) Neut # (Auto) Lymph # (Auto) [place] # (Auto) Eos # (Auto) Baso # (Auto) Nucleated RBC % (a uto) Nucleated RBCs # Specimen Type Sample Site ABG pH ABG pCO2 ABG pO2 ABG HCO3 ABG Base Excess Azael Test Hematocrit O2 Delivery Device FiO2 Pantry Steward/Stewardess ID Sodium 138 mmol/L mmol/L (136-145) Potassium 3.9 mmol/L mmol/L (3.5-5.1) Chloride 103 mmol/L mmol/L (98-107) Carbon Dioxide 25 mmol/L mmol/L (22-29) Anion Gap 13.9 (5-19) BUN 12 mg/dL mg/dL (6-20) Creatinine 0.9 mg/dL mg/dL (0.5-0.9) GFR Calculation 64.1 mL/min L mL/ min (90-130) Glucose 66 mg/dL mg/dL (65-115) POC Glucose Calculated Osmolal ity 284 mOsm/kg L mOs m/kg (285-295) Calcium 9.4 mg/dL mg/dL (8.5-10.5) Total Bilirubin 0.2 mg/dL mg/dL (0.15-1.2) AST 12 U/L U/L (0-32) ALT 10 U/L U/L (0-33) Alkaline Phosphata se 91 IU/L IU/L (35-105) Troponin T Baselin e 8 ng/L ng/L (0-10) Troponin T 120 Min pa[place] 7.86 ng/L ng/L (0-10) Delta Troponin T -0.14 ABS# L ABS# (0-10) Total Protein 6.3 g/dL L g/dL (6.6-8.7) Albumin 4.2 g/dL g/dL (3.5-5.2) Globulin 2.1 g/dL g/dL (1.3-4.6) TSH 2.71 uIU/mL uIU/m L (0.27-4.20) EKG Data^: EKG 1: Attestation: I personally reviewed and interpreted this EKG as follows: EKG interpretation date: 07/30/21 EKG interpretation time: 12:31 Interpretation: Twelve-lead EKG shows a regular rhythm at a rate of 58. HI interval 169, QRS duration 90, QTc 388. Normal axis. Interpretation: Sinus bradycardia. Discharge Plan Discharge Patient Disposition: Home Clinical Impression: Acute shoulder pain Condition: Stable Prescriptions: No Action montelukast 10 mg tablet 10 mg PO DAILY@0800 RF: 0 levothyroxine 25 mcg capsule 25 mcg PO DAILY@0800 RF: 0 cholecalciferol (vitamin D3) 25 mcg (1,000 unit) capsule 1,000 unit PO TID RF: 0 Spiriva Respimat 2.5 mcg/actuation mist 2 puff inhalation DAILY Qty: 4 RF: 3 amitriptyline 50 mg tablet 50 mg PO .bedtime Qty: 30 RF: 6 naproxen 500 mg tablet 500 mg PO BID 14 Days Qty: 28 RF: 0 albuterol sulfate [Ventolin HFA] 90 mcg/actuation HFA aerosol inhaler 2 puff INHALATION QID PRN (Reason: Shortness Of Breath Or Wheezing) RF: 0 pantoprazole 40 mg tablet,delayed release (DR/EC) 40 mg PO BID@0800,1800 RF: 0 rosuvastatin 20 mg tablet 20 mg PO DAILY@0800 RF: 0 Discharge Orders: Discharge ED (Routine); Ordered 07/30/21 Ordered By: Riky Mortensen Referrals: Samantha Evans MD [Primary Care Provider] - Discharge Diet: Usual diet Discharge Activity: Increase activity as tolerated Patient Instructions: Shoulder Pain (ED) Activity Restrictions/Additional Instructions: Thank you for visiting the emergency department. You were seen and evaluated for shoulder pain. The exact cause of your symptoms is unclear however x-ray does show evidence of possible rotator cuff pathology and/or AC joint disease/separation. This can be managed as an outpatient. Please follow-up with your primary care provider and orthopedics. Return to the emergency department for anything that you are concerned about and feel needs emergency department evaluation. Coding Level of Care Code ED Facilities Coordinator for Chg Fwd
--- NOTE | 2021-07-30 11:09 | XRR_ITS ---
PROCEDURE INFORMATION: Exam: XR Chest Exam date and time: 07/30/2021 11:09 AM Age: 60 years old Clinical indication: Right shoulder pain. Prior clavicular surgery. Limited range of motion. Patient states she fell x2 wks ago. Rotator cuff torn. Patient in shoulder sling. Limited range of motion. Altered mental status. TECHNIQUE: Imaging protocol: XR of the chest. Views: 1 view. COMPARISON: CR XR ribs LT mn 3V w CXR1V [id number] 12/14/2020 8:55 PM FINDINGS: Tubes, catheters and devices: A left clavicular plate and screw device is noted from prior open reduction, internal fixation. Lungs: No pulmonary consolidation. Pleural spaces: No pleural effusion.. No pneumothorax. Heart/Mediastinum: The cardiac silhouette is approximately unchanged given differences in technique. No gross evidence of pneumomediastinum. Bones/joints: No gross acute fracture. XR/XR chest 1V portable [id number] IMPRESSION: No acute cardiopulmonary abnormality identified. Radiation Dose CTDIVOL = (mGy): DLP = (mGy-cm)
--- NOTE | 2021-07-30 11:09 | CTR_ITS ---
PROCEDURE INFORMATION: Exam: CT Head Without Contrast Exam date and time: 07/30/2021 11:09 AM Age: 60 years old Clinical indication: Altered mental status/memory loss. TECHNIQUE: Imaging protocol: Computed tomography of the head without contrast. Radiation optimization: All CT scans at this facility use at least one of these dose optimization techniques: automated exposure control; mA and/or kV adjustment per patient size (includes targeted exams where dose is matched to clinical indication); or iterative reconstruction. COMPARISON: CT head wo con* [id number] 10/29/2017 8:29 PM RADIATION DOSE METRICS: Total DLP (mGy-cm): 754.86 FINDINGS: Brain: No acute intracranial hemorrhage. No mass, mass effect or midline shift.. There is no evidence of acute large vessel infarct.. The subcortical and periventricular white matter is normal in attenuation.. The posterior fossa is grossly unremarkable; however, it is partially obscurred by beam hardening artifact. Cerebral ventricles: The ventricles are normal in configuration. Paranasal sinuses: The visualized paranasal sinuses are clear. Mastoid air cells: No mastoid effusion. Orbital cavity: The visualized orbits are unremarkable. Bones/joints: No acute fracture is seen. CT/CT head wo con* [id number] IMPRESSION: No acute intracranial abnormality. Radiation Dose CTDIVOL = (mGy): DLP = 754.86 (mGy-cm)
--- NOTE | 2021-07-30 11:09 | XRR_ITS ---
PROCEDURE INFORMATION: Exam: XR Right Shoulder Exam date and time: 07/30/2021 11:09 AM Age: 60 years old Clinical indication: Right shoulder pain. TECHNIQUE: Imaging protocol: XR Right shoulder. Views: 2 or more views. COMPARISON: CR XR shoulder RT min 2V* [id number] 07/21/2021 10:43 AM FINDINGS: Bones/joints: There is mild primary osteoarthritis at the glenohumeral joint. There is slight irregularity of the greater tuberosity likely reflecting rotator cuff degeneration and/or tearing. There is widening of the acromioclavicular interval, and the distal clavicle appears absent. This can be seen with hyperparathyroidism, repetitive trauma (as seen with weight lifters) or surgery. No acute fracture is identified. Soft tissues: No soft tissue swelling is seen. XR/XR shoulder RT min 2V* [id number] IMPRESSION: 1. No acute fracture is identified. 2. Mild primary osteoarthritis at the glenohumeral joint. 3. There is slight irregularity of the greater tuberosity likely reflecting rotator cuff degeneration and/or tearing. 4. There is widening of the acromioclavicular interval, and the distal clavicle appears absent. This can be seen with hyperparathyroidism, repetitive trauma (as seen with weight lifters) or surgery. AC joint separation is a consideration; however, no soft tissue swelling is seen. Correlate clinically. Radiation Dose CTDIVOL = (mGy): DLP = (mGy-cm)
--- NOTE | 2021-07-30 11:10 | ECG_ITS ---
[facility] Test Date: 2021-07-30 Pat Name: Liana Luevano Department: Room: Gender: Female Capacity Planning Engineer: : 1960 Requested By: Riky Mortensen Order Number: [id number] Randa MD: Brenda Owens M.D. Measurements Intervals [facility] Rate: 58 P: 61 NC: 169 QRS: 27 QRSD: 90 T: 52 QT: 391 QTc: 386 Interpretive Statements SINUS BRADYCARDIA NONSPECIFIC T-WAVE ABNORMALITY Compared to ECG 02/02/2017 11:17:53 T-wave abnormality now present Sinus rhythm no longer present Electronically Signed On 07-30-2021 22:05:48 COLLECTION AGENT by Brenda Owens M.D. [id number]
[2021-07-30 11:33] LABS: ABG PH Result 7.37 (7.35-7.45); Arterial Blood Gas Hematocrit 36.3 % (37-47); Base Excess ABG -1.1 mmol/L (-2.0-2.0); Blood Gas Operator Identificat AMH; Blood Gas Sample Site Brachial, left; Blood Gas Sample Type Arterial; HCO3 ABG 24.3 mmol/L (22-26); Oxygen Device ROOM AIR; PO2 ABG 69.9 mmHg (80.0-100.0)
[2021-07-30 11:54] LABS: Glucose Point of Care 74 mg/dL (70-110)
[2021-07-30 12:07] LABS: Basophils # 0.1 10^3/uL (0.0-0.1); Eosinophils # 0.3 10^3/uL (0.0-0.8); Eosinophils % 3.1 %; Hematocrit 37.1 % (37.0-47.0); Hemoglobin 12.1 g/dL (11.5-15.3); Lymphocytes # 3.3 10^3/uL (0.8-4.8); Lymphocytes % 41.2 %; Mean Corpuscular HGB Conc 32.6 g/dL (30.0-36.0); Mean Corpuscular Hemoglobin 30.7 pg (28.0-34.0); Mean Corpuscular Volume 94.2 fl (81-99); Mean Platelet Volume 9.8 fL (7.4-10.4); Monocytes # 0.7 10^3/uL (0.2-0.9); Monocytes % 8.5 %; Neutrophils # 3.74 10^3/uL (1.8-7.7); Neutrophils % 46.1 %; Nucleated Red Blood Cells % 0 %; Platelet Count 296 10^3/cmm (130-400); Red Blood Count 3.94 10^6/uL (4.1-5.3); Red Cell Distribution Width 13.7 % (12.1-15.1); White Blood Count 8.1 10^3/uL (4.0-10.0)
[2021-07-30 12:41] LABS: Troponin(5th) Baseline 8 ng/L (0-10)
[2021-07-30 12:46] VITALS: PULSE 69; RESP 16; O2SAT 98
[2021-07-30 12:50] LABS: Alanine Aminotransferase 10 U/L (0-33); Albumin Level 4.2 g/dL (3.5-5.2); Alkaline Phosphatase 91 IU/L (35-105); Anion Gap 13.9 (5-19); Aspartate Amino Transferase 12 U/L (0-32); Blood Urea Nitrogen 12 mg/dL (6-20); Calcium 9.4 mg/dL (8.5-10.5); Carbon Dioxide 25 mmol/L (22-29); Chloride 103 mmol/L (98-107); Creatinine Clr Calc Pharmacy 61.3985; Globulin 2.1 g/dL (1.3-4.6); Glomerular Filtration Rate 64.1 mL/min (90-130); Glucose 66 mg/dL (65-115); Osmolality Calculated 284 mOsm/kg (285-295); Potassium 3.9 mmol/L (3.5-5.1); Sodium 138 mmol/L (136-145); Thyroid Stimulating Hormone 2.71 uIU/mL (0.27-4.20); Total Bilirubin 0.2 mg/dL (0.15-1.2); Total Protein 6.3 g/dL (6.6-8.7)
[2021-07-30 14:44] LABS: Troponin 5 2HR 7.86 ng/L (0-10)
[2021-07-30] MEDS: ketorolac 30 mg/mL INJ 15 MG IVP (14:45)
[2021-07-30] MEDS: acetaminophen 500 mg Tablet 1000 MG PO (14:45)
[2021-07-30 14:57] LABS: Troponin 5 2HR Delta -0.14 ABS# (0-10)
[2021-07-30 15:06] VITALS: BP 117/56; PULSE 58; RESP 16; O2SAT 97
== END 2021-07-30 15:07 | disposition home or self-care (01) ==
PROVIDERS: Emergency Provider Emergency Medicine; PCP Internal Medicine
DX: M25.511 Pain in right shoulder (principal)
CPT/HCPCS: 36416; 36600; 70450; 71045; 73030; 80053; 82803; 82962; 84443; 84484; 85025; 93005; 96374; 99284; J1885

== ENCOUNTER 2021-08-25 09:37 | Emergency (ER) | payer MEDICARE, SELFPAY ==
[2021-08-25 09:42] VITALS: BP 135/83; PULSE 62; RESP 16; TEMP 36.6; O2SAT 97; BMI 22.3
[2021-08-25 10:00] VITALS: BP 135/83; PULSE 62; RESP 18; O2SAT 97
--- NOTE | 2021-08-25 10:15 | XR_ITS ---
WS: [id number] XR ribs RT mn 3V w CXR1V [id number] REASON FOR EXAM: pain after fall FINDINGS: Minimally displaced anterolateral fractures of the second through the fourth right ribs. Fractures ap pear acute/subacute. Underlying lung appears normal, no pneumothorax, no pleural effusion. XR/XR ribs RT mn 3V w CXR1V [id number] IMPRESSION: Right rib fractures as above.
--- NOTE | 2021-08-25 10:15 | XR_ITS ---
WS: [id number] XR shoulder RT min 2V* [id number] REASON FOR EXAM: fall/trauma FINDINGS: Examination is unchanged compared to 07/30/2021. No fracture or dislocation. There is widening of the acromioclavicular joint unchanged compared to the previous study. Glenohumer al joint properly aligned. No focal bone lesion or soft tissue abnormality. XR/XR shoulder RT min 2V* [id number] IMPRESSION: No acute abnormality.
--- NOTE | 2021-08-25 10:17 | W.ED.GENADLT ---
HPI - General Adult General: Chief complaint: General Medical Stated complaint: FELL 2 DAYS AGO: R SHOULDER & R RIB PAIN Time Seen by Provider: 08/25/21 09:39 History of Present Illness: HPI narrative: 61-year-old female comes in complaining right shoulder pain right rib pain she fell 2 days ago after getting caught up in her dog's leash. Onset (ago): day(s) (2) Location: chest and upper extremity (R shoulder) Severity: moderate Pain Consistency: constant Relieving factors: immobilization Exacerbating factors: none Associated symptoms: Reports chest pain and dyspnea; Deny confusion, cough, diaphoresis, decreased appetite, fevers/chills, headache(s), malaise, nausea, rash, palpitations, seizures, short of breath, syncope, vomiting or weakness Treatments prior to arrival: none Review of Systems Const: Denies: malaise or diaphoresis ENMT: Denies: throat pain, ear or mastoid pain, nasal discharge or nasal congestion Card: Reports: chest pain; Denies: palpitations or syncope Resp: Reports: dyspnea GI: Denies: nausea or vomiting : Denies: flank pain, difficulty voiding, dysuria, urinary frequency or urinary urgency Skin/Breast: Denies: rash Neuro: Denies: headache(s) or confusion PFSH ED PFSH: Medical History Cervical post-laminectomy syndrome (~07/04/16) Displacement of lumbar intervertebral disc SHE WILL NOTIFY NEUROSURGERY CLINIC IF/WHEN SHE WISHES TO FOLLOW-UP Generalized anxiety disorder Hx of fracture of clavicle repair fx collar bone. Hx of rotator cuff tear surgery, left Intervertebral disc disorder with radiculopathy of lumbosacral region Low back pain of over 3 months duration Major depressive disorder, recurrent, in partial remission Nicotine dependence, cigarettes, uncomplicated Psychiatric care Surgical History History of cervical spinal surgery (~07/04/16) Dr. Mujica, C5-C6 ACDFF History of cholecystectomy History of hysterectomy (~1979) History of shoulder surgery (~04/04/16) rotator cuff repair, right Family History Mother Parkinsons disease Father Myocardial infarction Social History Alcohol intake: never Household members: spouse Marital status: Current occupational status: unemployed and retired History of recent travel: No Physical Exam Const: COMMON NORMALS: no acute distress GENERAL APPEARANCE: cooperative and comfortable ORIENTATION/CONSCIOUSNESS: Yes awake, Yes oriented to person, Yes oriented to place and Yes oriented to time HENMT: COMMON NORMALS: normocephalic, atraumatic and hearing grossly normal bilaterally HEAD & SCALP: normocephalic and atraumatic Neck/C-Spine: COMMON NORMALS: no JVD Resp: COMMON NORMALS: normal respiratory effort, No retractions, No use of accessory muscles and clear to auscultation bilaterally AUSCULTATION: clear to auscultation bilaterally Cardio: COMMON NORMALS: no JVD, regular rate, regular rhythm and No murmurs present (Cardio) RATE: regular rate RHYTHM: regular rhythm GI: COMMON NORMALS: Soft to palpation and No hepatosplenomegaly present AUSCULTATION: Yes normoactive bowel sounds PALPATION: Yes Soft to palpation, No Tenderness to palpation present (GI), No Guarding due to palpation present (GI) and Yes No hepatosplenomegaly present Extremity: COMMON NORMALS: normal to inspection, capillary refill normal, no clubbing, cyanosis or edema, no calf tenderness and no pedal edema Neuro: SENSORIUM/ORIENTATION: Yes oriented to person, Yes oriented to place and Yes oriented to time Skin: COMMON NORMALS: no rashes or lesions noted GENERAL SKIN EXAM: no rashes or lesions noted Course Vital Signs: Vital signs: Vital Signs Temperature 97.8 F 08/25/21 09:42 Pulse Rate 62 08/25/21 10:00 Respiratory Rate 18 08/25/21 10:00 Blood Pressure 135/83 08/25/21 10:00 Pulse Oximetry 97 08/25/21 10:00 MDM - General Adult MDM Narrative: Medical decision making narrative: Multiple rib fractures. Patient with hydrocodone. Avoid rib belts recheck primary care doctor within the week return if has problems. Discharge Plan Discharge Patient Disposition: Home Clinical Impression: Multiple rib fractures Condition: Stable Prescriptions: New hydrocodone-acetaminophen 5-325 mg tablet 1 tab PO Q6H PRN (Reason: pain) Qty: 20 RF: 0 No Action montelukast 10 mg tablet 10 mg PO DAILY@0800 RF: 0 levothyroxine 25 mcg capsule 25 mcg PO DAILY@0800 RF: 0 cholecalciferol (vitamin D3) 25 mcg (1,000 unit) capsule 1,000 unit PO TID RF: 0 Spiriva Respimat 2.5 mcg/actuation mist 2 puff inhalation DAILY Qty: 4 RF: 3 amitriptyline 50 mg tablet 50 mg PO .bedtime Qty: 30 RF: 6 naproxen 500 mg tablet 500 mg PO BID 14 Days Qty: 28 RF: 0 albuterol sulfate [Ventolin HFA] 90 mcg/actuation HFA aerosol inhaler 2 puff INHALATION QID PRN (Reason: Shortness Of Breath Or Wheezing) RF: 0 pantoprazole 40 mg tablet,delayed release (DR/EC) 40 mg PO BID@0800,1800 RF: 0 rosuvastatin 20 mg tablet 20 mg PO DAILY@0800 RF: 0 Discharge Orders: Discharge ED (Routine); Ordered 08/25/21 Ordered By: Gutierrez Olivares Referrals: Samantha Evans MD [Primary Care Provider] - Discharge Diet: Usual diet Discharge Activity: Resume usual activity Patient Instructions: Opioid Safety Coding Level of Care Code ED Plywood Matcher for Chg Fwd Exam Comprehensive
[2021-08-25] MEDS: HYDROcodone-acetaminophen 5-325 mg Tablet 2 TAB PO (11:43)
== END 2021-08-25 11:51 | disposition home or self-care (01) ==
PROVIDERS: Emergency Provider Family Medicine; PCP Internal Medicine
DX: S22.41XA Multiple fractures of ribs, right side, initial encounter for closed fracture (principal); W01.0XXA Fall on same level from slipping, tripping and stumbling without subsequent striking against object, initial encounter
CPT/HCPCS: 71101; 73030; 99283

== ENCOUNTER → 2021-08-31 09:25 | Outpatient (BNVA) | payer MEDICARE, SELFPAY | PROVIDERS: PCP Internal Medicine; Referring Provider Internal Medicine; Visit Provider Specialist | DX: M25.511 Pain in right shoulder (principal) | CPT/HCPCS: 73030 ==

== ENCOUNTER → 2021-10-20 11:43 | Outpatient (BNVA) | payer OTHER, SELFPAY | PROVIDERS: PCP Internal Medicine; Visit Provider Nurse Practitioner | DX: S92.512A Displaced fracture of proximal phalanx of left lesser toe(s), initial encounter for closed fracture (principal); X58.XXXA Exposure to other specified factors, initial encounter | CPT/HCPCS: 73630 ==

== ENCOUNTER → 2021-10-26 13:18 | Outpatient (BNVA) | payer MEDICARE, SELFPAY | PROVIDERS: PCP Internal Medicine; Visit Provider Podiatrist Foot & Ankle Surgery | DX: S92.512A Displaced fracture of proximal phalanx of left lesser toe(s), initial encounter for closed fracture (principal); X58.XXXA Exposure to other specified factors, initial encounter | CPT/HCPCS: 73630 ==

== ENCOUNTER 2021-11-21 08:38 | Outpatient (CLI) | payer MEDICARE, SELFPAY ==
--- NOTE | 2021-11-21 08:46 | MR_ITS ---
WS: [id number] MRI RIGHT SHOULDER NONCONTRAST TECHNIQUE: Sagittal T2, coronal T1, T2 and proton density imaging. Axial gradient PDE imaging. CLINICAL INFORMATION: M25.511 - Pain in right shoulder COMPARISON: FINDINGS: Moderate degenerative arthritis at the AC joint. Narrowing of the subacromial space. Small amount of subacromial subdeltoid fluid. Moderate chronic thinning of the distal supraspinatus.This is likely du e to prior partial tear. This was seen on the prior study. No tendon retraction. Normal infraspinatus and teres minor. Mild chronic thinning of the subscapularis appears intact. Norm al biceps tendon in the bicipital groove. Intra-articular biceps tendon appears intact. Degenerative fraying of the glenoid labrum. Cystic degenerative change involving the greater tuberosity and osvaldo l head. MR/MR shoulder RT wo con* [id number] IMPRESSION: 1. Moderate degenerative arthritis at the AC joint with mild edema. Mild narro wing of the subacromial space. 2. Chronic thinning supraspinatus likely due to prior partial thickness tear s een on the prior MRI. No acute appearing tear today 3. Normal infraspinatus and teres minor. Subscapularis is intact. 4. Normal biceps tendon in the bicipital groove. 5. Normal intra-articular biceps tendon. 6. Subchondral degenerative cystic change involving the greater tuberosity.
== END 2021-11-21 08:39 | disposition home or self-care (01) ==
LOC: RAD 08:40
PROVIDERS: PCP Internal Medicine; Visit Provider Specialist
DX: M19.011 Primary osteoarthritis, right shoulder (principal); R60.0 Localized edema
CPT/HCPCS: 73221

== ENCOUNTER 2021-11-30 | Outpatient (RCR) | payer MEDICARE, SELFPAY | END 2021-12-08 23:59 | disposition home or self-care (01) | LOC: SPT | PROVIDERS: PCP Internal Medicine; Referring Provider Specialist; Visit Provider Specialist | DX: M75.111 Incomplete rotator cuff tear or rupture of right shoulder, not specified as traumatic (principal) | CPT/HCPCS: 73630 ==

== ENCOUNTER → 2021-12-21 09:48 | Outpatient (BNVA) | payer MEDICARE, SELFPAY | PROVIDERS: PCP Internal Medicine; Visit Provider Specialist | DX: F17.210 Nicotine dependence, cigarettes, uncomplicated (principal); G56.03 Carpal tunnel syndrome, bilateral upper limbs | CPT/HCPCS: 73110; 99214 ==

== ENCOUNTER 2021-12-22 11:48 | Outpatient (CLI) | payer MEDICARE, SELFPAY | END 2021-12-22 11:49 | disposition home or self-care (01) | LOC: SPT 11:48 | PROVIDERS: PCP Internal Medicine; Visit Provider Specialist | DX: G56.01 Carpal tunnel syndrome, right upper limb (principal) | CPT/HCPCS: 97760; L3908 ==

== ENCOUNTER 2022-01-01 12:45 | Emergency (ER) | payer MEDICARE, SELFPAY ==
[2022-01-01 13:20] VITALS: BP 111/77; PULSE 71; RESP 18; TEMP 37.2; O2SAT 98; BMI 21.6
--- NOTE | 2022-01-01 13:24 | XRR_ITS ---
PROCEDURE INFORMATION: Exam: XR Right Ankle Exam date and time: 01/01/2022 1:57 PM Age: 61 years old Clinical indication: Ankle and foot; Right; Patient HX: C/O R foot/ankle pain w/o injury TECHNIQUE: Imaging protocol: XR Right ankle. Views: 3 or more views. COMPARISON: CR Ankle 3 views, RIGHT* [id number] 01/13/2019 2:16 PM FINDINGS: Bones/joints: Intact. No fracture or dislocation. Normal appearance of the ankle mortise. Soft tissues: Normal. XR/XR ankle RT min 3V* [id number] IMPRESSION: No acute findings.
--- NOTE | 2022-01-01 13:24 | XRR_ITS ---
PROCEDURE INFORMATION: Exam: XR Right Foot Exam date and time: 01/01/2022 1:58 PM Age: 61 years old Clinical indication: Ankle and foot; Right; Prior surgery; Surgery date: 6+ months; Surgery type: Orif toe; Patient HX: C/O R foot/ankle pain w/o injury TECHNIQUE: Imaging protocol: XR Right foot. Views: 3 or more views. COMPARISON: 1[place] [id number] ORTH 11/30/2021 1:28 PM 2. CR XR ankle RT min 3V* [id number] 01/01/2022 1:57 PM FINDINGS: Bones/joints: Postsurgical changes of the head of the 1st metatarsal and base of the 1st proximal phalanx. Normal bony alignment. No acute fracture. Soft tissues: Normal. XR/XR foot RT min 3V* [id number] IMPRESSION: No acute radiographic findings.
--- NOTE | 2022-01-01 14:57 | ED_ITS ---
HPI - Extremity Problem General: Chief complaint: Extremity Injury, Lower Stated complaint: Rt Foot injury Time Seen by Provider: 01/01/22 14:48 Source: patient Mode of arrival: ambulatory Limitations: no limitations History of Present Illness: Patient is a 61-year-old female presents to ED today with a complaint of right foot pain. Patient states she noticed the pain approximately 2 days ago. No known injury or trauma. She does state she broke that foot over a decade ago. She has not noticed any redness or swelling. Triage note states that patient was ambulatory upon arrival to the ED without assistance. MD Complaint: extremity pain Onset (ago): day(s) Pain Consistency: constant Location: right and lower extremity Radiation: none Relieving factors: immobilization Exacerbating factors: weight bearing and walking Associated symptoms: Reports no associated symptoms; Deny chest pain, fever(s) or rash Review of Systems Const: Denies: fever(s), chills or body aches Card: Denies: chest pain Resp: Denies: dyspnea Musc: Reports: extremity pain (R foot); Denies: extremity swelling, joint pain, joint swelling, joint redness, joint warmth or joint stiffness Skin/Breast: Denies: rash or erythema Neuro: Denies: numbness in extremities, weakness in extremities or sensory changes PFSH ED PFSH: Medical History Cervical post-laminectomy syndrome (~07/04/16) Displacement of lumbar intervertebral disc SHE WILL NOTIFY NEUROSURGERY CLINIC IF/WHEN SHE WISHES TO FOLLOW-UP Generalized anxiety disorder Hx of fracture of clavicle repair fx collar bone. Hx of rotator cuff tear surgery, left Intervertebral disc disorder with radiculopathy of lumbosacral region Low back pain of over 3 months duration Major depressive disorder, recurrent, in partial remission Nicotine dependence, cigarettes, uncomplicated Psychiatric care Surgical History History of cervical spinal surgery (~07/04/16) Dr. Mujica, C5-C6 ACDFF History of cholecystectomy History of hysterectomy (~1979) History of shoulder surgery (~04/04/16) rotator cuff repair, right Family History Mother Parkinsons disease Father Myocardial infarction Social History Smoking and tobacco status: current every day smoker (pack a day smoker ) cigarettes Packs smoked per day: 1 Years cigarettes smoked: 39 Alcohol intake: never Household members: spouse Marital status: Current occupational status: unemployed and retired History of recent travel: No Physical Exam Const: COMMON NORMALS: no acute distress, patient oriented x3, no limitations and alert Extremity: COMMON NORMALS: normal to inspection, full ROM, capillary refill normal, no joint enlargement, no clubbing, cyanosis or edema, no calf tenderness and no pedal edema GENERAL: Yes normal exam except as noted RIGHT LOWER EXTREMITY: Yes foot & digits (TTP medial arch R foot; no swelling or redness noted) Right foot and digits: Yes inspection (normal inspection; no puncture injuries ), Yes palpation (mimimal TTP of medial arch of foot), Yes ROM (normal) and Yes neurovascular exam (normal) Neuro: COMMON NORMALS: patient oriented x3 SENSORIUM/ORIENTATION: Yes alert Course Vital Signs: Vital signs: Vital Signs Temperature 99 F 01/01/22 13:20 Pulse Rate 67 01/01/22 15:12 Respiratory Rate 18 01/01/22 15:12 Blood Pressure 99/62 01/01/22 15:12 Pulse Oximetry 98 01/01/22 15:12 MDM - Extremity (Nontraumatic) Medical Decision Making XRs negative. She states she has a podiatry appointment scheduled in February. Recommend conservative treatment with ice/rest, cushioned shoes, padded orthotics, etc. Recommend patient follow-up with her primary care provider in the meantime if pain persists. Lab Data Radiology Impressions Ankle X-Ray 01/01/22 13:24 IMPRESSION: No acute findings. Foot X-Ray 01/01/22 13:24 IMPRESSION: No acute radiographic findings. Discharge Plan Discharge Patient Disposition: Home Clinical Impression: Acute pain of right foot Condition: Stable Prescriptions: No Action montelukast 10 mg tablet 10 mg PO DAILY@0800 0RF levothyroxine 25 mcg capsule 25 mcg PO DAILY@0800 0RF cholecalciferol (vitamin D3) 25 mcg (1,000 unit) capsule 1,000 unit PO TID 0RF Spiriva Respimat 2.5 mcg/actuation mist 2 puff inhalation DAILY Qty: 4 3RF amitriptyline 50 mg tablet 50 mg PO .bedtime Qty: 30 6RF Rx Instructions: Take one tablet at bedtime (DME) cock up splint See Rx Instructions .Route .MEDSUPPLY Qty: 1 0RF Rx Instructions: As directed albuterol sulfate [Ventolin HFA] 90 mcg/actuation HFA aerosol inhaler 2 puff INHALATION QID PRN (Reason: Shortness Of Breath Or Wheezing) 0RF pantoprazole 40 mg tablet,delayed release (DR/EC) 40 mg PO BID@0800,1800 0RF rosuvastatin 20 mg tablet 20 mg PO DAILY@0800 0RF Discharge Orders: Discharge ED (Routine); Ordered 01/01/22 Ordered By: Camille Foss Referrals: Samantha Evans MD [Primary Care Provider] - Coding Level of Care Code ED Residential Support Specialist for Aileen Anderson
[2022-01-01 15:12] VITALS: BP 99/62; PULSE 67; RESP 18; O2SAT 98
== END 2022-01-01 15:14 | disposition home or self-care (01) ==
PROVIDERS: Emergency Provider Physician Assistant; PCP Internal Medicine
DX: M79.671 Pain in right foot (principal); Z87.81 Personal history of (healed) traumatic fracture; F17.210 Nicotine dependence, cigarettes, uncomplicated
CPT/HCPCS: 73610; 73630; 99281

== ENCOUNTER 2022-01-10 06:43 | Day surgery (SDC) | payer MEDICARE, SELFPAY ==
[2022-01-10] VITALS (7 sets, daily range): BP systolic 113–158; BP diastolic 59–81; PULSE 59–66; RESP 16–18; TEMP 36.2–37.2; O2SAT 94–100; BMI 21.6
--- NOTE | 2022-01-10 07:15 | P.HPUD_ITS ---
Surgery/Procedure H&P Update DATE OF PROCEDURE: January 10, 2022 DATE H&P PERFORMED: 12/21/21 H&P UPDATE INFORMATION: I have reviewed H&P completed within last 30 days, I have examined patient prior to procedure, No changes to prior documentation and [place] [facility] [place] indicated PREOP DIAGNOSIS: Right carpal tunnel syndrome PLANNED PROCEDURE: Operation Date: 01/10/22 08:25 Proposed Procedures p Carpal Tunnel Release [id number]/g56.00(Right) - Gi Dumont MD Related Problem List Diagnoses (1) Carpal tunnel syndrome on right:
[2022-01-10] MEDS: acetaminophen 1,000 MG/100 ML PIGGYBACK 400 MG IV (07:35)
[2022-01-10] MEDS: CELEcoxib 200 mg Capsule 400 MG PO ×2 (07:39→07:40)
[2022-01-10] MEDS: sodium chloride 0.9% 1,000 ML 30 ML IV (07:40)
--- NOTE | 2022-01-10 08:10 | ANES.PREANE2 ---
Pre-Anesthetic Assessment Height/Weight: Height 1.65 m Weight 58.967 kg Temp Pulse Resp BP Pulse Ox 98.9 F 63 16 113/59 98 01/10/22 07:10 01/10/22 07:10 01/10/22 07:10 01/10/22 07:10 01/10/22 07:10 Preop Diagnosis: Right carpal tunnel syndrome Operation Date: 01/10/22 08:25 Proposed Procedures p Carpal Tunnel Release [id number]/g56.00(Right) - Gi Dumont MD Familial anesthetic complications: none Was Beta Luke taken within 24 hours: N/A Was Clonidine taken within 24 hours: N/A Last intake: Intake Last Liquid Date 01/09/22 Last Liquid Time 20:00 Last Solid Date 01/09/22 Last Solid Time 19:00 Social Tobacco and No alcohol Exam alert, oriented x 3, clear to auscultation bilaterally and regular rate & rhythm Airway Mallampati: Class II Dentition: other (no teeth) Pulmonary Chronic Obstructive Pulmonary Disease CV/HEM Hypertension GI Gastroesophageal Reflux Disease Metabolic Thyroid [place] [facility] [place] Lower Back Pain Neuropsych Neuropathy Anesthetic Plan ASA status: 3 Anesthesia: MAC and Regional (specify below) (devin block) Medications/Allergies Home Medications Medication Instructions Recorded Confirmed Last Taken Type levothyroxine 25 mcg capsule 25 mcg PO DAILY@0800 09/22/19 01/10/22 01/09/22 History montelukast 10 mg tablet 10 mg PO DAILY@0800 09/22/19 01/10/22 01/09/22 History albuterol sulfate 90 mcg/actuation 2 puff INHALATION QID PRN 02/13/20 01/10/22 01/09/22 History aerosol inhaler (Ventolin HFA) pantoprazole 40 mg tablet,delayed 40 mg PO BID@0800,1800 12/14/20 01/10/22 01/09/22 History release rosuvastatin 20 mg tablet 20 mg PO DAILY@0800 12/14/20 01/10/22 01/09/22 History tiotropium bromide 2.5 2 puff INHALATION DAILY #4 g 04/13/21 01/10/22 01/09/22 Rx mcg/actuation mist for inhalation (Spiriva Respimat) amitriptyline 50 mg tablet 50 mg PO .bedtime #30 tab 07/27/21 01/10/22 01/09/22 Rx cholecalciferol (vitamin D3) 25 1,000 unit PO TID cap 07/27/21 01/10/22 01/09/22 History mcg (1,000 unit) capsule cock up splint #1 ea 12/21/21 12/21/21 Unknown Rx Allergies Allergy/AdvReac Type Severity Reaction Status Date / Time adhesive tape Allergy Intermediate ALGY-Rash Verified 01/05/22 10:58 Iodinated Contrast Media Allergy Mild itching Verified 01/05/22 10:58 Penicillins Allergy Mild hives Verified 01/05/22 10:58 Sulfa (Sulfonamide Allergy Mild hives Verified 01/05/22 10:58 Antibiotics) Current Medications Generic Name Dose Route Start Last Admin Trade Name Freq PRN Reason Stop Dose Admin Sodium Chloride 1,000 mls @ 30 mls/hr 01/10/22 07:15 01/10/22 07:40 Sodium Chloride 0.9% IV 01/11/22 07:14 30 mls/hr .Q24H JUNIOR Administration PFSH Anesthesia Medical History Cervical post-laminectomy syndrome (~07/04/16) Displacement of lumbar intervertebral disc SHE WILL NOTIFY NEUROSURGERY CLINIC IF/WHEN SHE WISHES TO FOLLOW-UP Generalized anxiety disorder Hx of fracture of clavicle repair fx collar bone. Hx of rotator cuff tear surgery, left Intervertebral disc disorder with radiculopathy of lumbosacral region Low back pain of over 3 months duration Major depressive disorder, recurrent, in partial remission Nicotine dependence, cigarettes, uncomplicated Psychiatric care Surgical History History of cervical spinal surgery (~07/04/16) Dr. Mujica, C5-C6 ACDFF History of cholecystectomy History of hysterectomy (~1979) History of shoulder surgery (~04/04/16) rotator cuff repair, right Family History Mother Parkinsons disease Father Myocardial infarction Social History Smoking and tobacco status: current every day smoker (pack a day smoker ) cigarettes Packs smoked per day: 1 Years cigarettes smoked: 39 Alcohol intake: never Household members: spouse Marital status: Current occupational status: unemployed and retired History of recent travel: No Data Anesthesia Cardiac Studies: No Data to Display
[2022-01-10] MEDS: vancomycin 1,000 MG in sodium chloride 0.9% 250 ML 250 MG IV (09:12)
--- NOTE | 2022-01-10 10:12 | PM.OP ---
Operative Report Date of procedure: January 10, 2022 Pre-op diagnosis: Right carpal tunnel syndrome Post-op diagnosis: Right carpal tunnel syndrome Procedure done: Right carpal tunnel release Pathology: none sent Surgeon: Gi Dumont Anesthesia: MAC (With Rodrigue block, ASA 3) Estimated blood loss (mL): 3 Tourniquet time (min): 32 (At 250 mmHg) IV fluids (mL): 400 Urine output (mL): 0 (No Hernandez) Complications: None Findings: Significant compression across carpal canal with hourglass shape to the median nerve. Thick fibrous tissue. Condition: stable Disposition: PACU (Then to same-day surgery for discharge to home) Brief History: This 61-year-old woman presented to my office with complaints of bilateral wrist pain right greater than left. The patient also had numbness in the thumb index and long fingers. Her nerve conduction studies were consistent with bilateral carpal tunnel worse on the right than the left. After discussion with the patient, she wished to proceed with carpal tunnel release. Risks and complications were explained in detail. Consents were signed in the office. Questions were answered. Procedure: The patient was brought to the operating theater. The patient had a Rodrigue block with MAC, ASA 3. The tourniquet was elevated to 250 mmHg for a total tourniquet time of 33 minutes. The patient was also given vancomycin 1 g preoperatively. The arm was then prepped and draped with DuraPrep in usual fashion with the arm draped free. A surgical pause was performed. At the time, the surgical pause, we confirmed the site and side of surgery. We also confirmed the patient's identity, appropriate and timely administration of preoperative antibiotics and preoperative surgical markings. An incision was then made along the thenar crease. The incision crossed the wrist joint in a curvilinear fashion. Dissection continued through skin and soft tissues using a scalpel. The palmaris longus was identified along with the transverse carpal ligament. Each of these was released carefully to avoid injury to the median nerve. We were able to dissect gently into the carpal canal which was noted to be quite tight with significant compression across the median nerve. The nerve was visualized and was an hourglass shape. The canal was subsequently palpated to assure there was no bony encroachment upon the canal. There was a quite thickened fibrous tissue within the canal, and this was opened longitudinally as well. The canal was then palpated distally and proximally to assure that my small finger was passed easily without impingement. Finding this to be so, attention was directed to closure. The wound was irrigated with ropivacaine plain. It was then closed with 3-0 nylon in an interrupted mattress fashion. Sterile dressing was then placed consisting of Dermabond, OpSite, fluffed fluffs, sterile soft roll, and an [place] wrap. The tourniquet was released after 32 minutes. There were no complications. There were no specimens. The procedure was well tolerated. Plan is the patient will be discharged home.
--- NOTE | 2022-01-10 18:55 | ANE.PACU2 ---
Inpatient post-anesthesia follow up: Airway intact: Yes Vital signs: Temperature 97.2 F Pulse Rate 60 Respiratory Rate 18 Blood Pressure 158/81 Pulse Oximetry 94 Oxygen Delivery Me thod Room Air Oxygen Flow Rate 6 Fraction of Inspir ed Oxygen Hydration adequate: Yes Nausea and vomiting: Yes Pain level: 1 Mental status: Baseline
== END 2022-01-10 10:53 | disposition home or self-care (01) ==
PROVIDERS: PCP Internal Medicine; Visit Provider Specialist
PROC: (CPT 64721; principal; 2022-01-10 08:15)
DX: G56.01 Carpal tunnel syndrome, right upper limb (principal); J44.9 Chronic obstructive pulmonary disease, unspecified; I10 Essential (primary) hypertension; K21.9 Gastro-esophageal reflux disease without esophagitis; F17.210 Nicotine dependence, cigarettes, uncomplicated
CPT/HCPCS: 64721; J2704; J3010; J3370; J3490; J7030; J7050

== ENCOUNTER → 2022-01-11 09:52 | Outpatient (BNVA) | payer MEDICARE, SELFPAY | PROVIDERS: PCP Internal Medicine; Visit Provider Nurse Practitioner Psychiatric/Mental Health | DX: F33.41 Major depressive disorder, recurrent, in partial remission (principal); F41.1 Generalized anxiety disorder; F17.210 Nicotine dependence, cigarettes, uncomplicated | CPT/HCPCS: 99214 ==

== ENCOUNTER 2022-03-01 17:17 | Outpatient (CLI) | payer MEDICARE, SELFPAY | END 2022-03-01 17:18 | disposition home or self-care (01) | LOC: SPT 17:18 | PROVIDERS: PCP Internal Medicine; Visit Provider Podiatrist Foot & Ankle Surgery | DX: Z46.89 Encounter for fitting and adjustment of other specified devices (principal); M79.671 Pain in right foot; M76.821 Posterior tibial tendinitis, right leg | CPT/HCPCS: 97760; 99214; L1902 ==

== ENCOUNTER → 2022-03-28 08:50 | Outpatient (BNVA) | payer MEDICARE, SELFPAY | PROVIDERS: PCP Internal Medicine; Visit Provider Podiatrist Foot & Ankle Surgery | DX: L84 Corns and callosities (principal); M20.31 Hallux varus (acquired), right foot; M77.41 Metatarsalgia, right foot; M72.2 Plantar fascial fibromatosis | CPT/HCPCS: 99214 ==

== ENCOUNTER 2022-04-05 14:02 | Outpatient (CLI) | payer MEDICARE, SELFPAY ==
--- NOTE | 2022-04-05 14:12 | CT_ITS ---
WS: [id number] LDCT LUNG CANCER SCREENING HISTORY: HX OF TOBACCO USE TECHNIQUE: Axial imaging performed from the apices to 1 cm below the costophrenic angles. Coronal and sagittal reformats are submitted with axial MIP series. All CT scans at [facility] use at least one of these dose optimization techniques: automated exposure control; mA and/or kV adjustment per patient size (includes targeted exams where dose is matched to clinical indication); or iterativ e reconstruction. DLP: 73.09 mGy.cm DIvol: Mean CTDIvol: 1.60 (mGy) COMPARISON: 03/31/2021 Diagnostic quality: Satisfactory Lung Nodules: No pulmonary nodule. There is a 3.7 mm endobronchial nodule and a proximal segmental br anch of the RIGHT lower lobe. This was probably present on the prior study but new since 03/05/2020. O therwise no suspicious findings. Lungs: Moderate pulmonary hyperinflation with emphysema and a few small bulla. Heart: Normal size heart. No pericardial effusion. Other findings: Prior cholecystectomy. 10 mm mass from the posterior upper pole LEFT kidney is indete rminate on this unenhanced study. Similar size to a complex nodule seen on the prior CT from 2017. Pr ior cholecystectomy. Hepatic steatosis. CT/CT lung screening [id number] IMPRESSION: LUNG-RADS: 4A-Probably Suspicious FOLLOW UP: 3 Month LDCT OTHER FINDINGS (S MODIFIER): None. 3 month low-dose CT can be obtained to further evaluate endobronchial nodule in the RIGHT lower lobe versus bronchoscopy.
== END 2022-04-05 14:03 | disposition home or self-care (01) ==
LOC: RAD 14:06
PROVIDERS: PCP Internal Medicine; Visit Provider Internal Medicine
DX: Z12.2 Encounter for screening for malignant neoplasm of respiratory organs (principal); Z87.891 Personal history of nicotine dependence
CPT/HCPCS: 71271

== ENCOUNTER → 2022-04-24 08:41 | Outpatient (BNVA) | payer MEDICARE, SELFPAY | PROVIDERS: PCP Internal Medicine; Visit Provider Internal Medicine Pulmonary Disease | DX: J44.9 Chronic obstructive pulmonary disease, unspecified (principal); F17.210 Nicotine dependence, cigarettes, uncomplicated; Z12.2 Encounter for screening for malignant neoplasm of respiratory organs; Z71.6 Tobacco abuse counseling; R91.8 Other nonspecific abnormal finding of lung field; R06.09 Other forms of dyspnea | CPT/HCPCS: 99214 ==

== ENCOUNTER → 2022-05-03 10:30 | Outpatient (BNVA) | payer MEDICARE, SELFPAY | PROVIDERS: PCP Internal Medicine; Visit Provider Specialist | DX: M19.011 Primary osteoarthritis, right shoulder (principal); M75.81 Other shoulder lesions, right shoulder | CPT/HCPCS: 20610; 73030; 99213; J1100; J2795; J3301 ==

== ENCOUNTER 2022-05-03 11:35 | Outpatient (CLI) | payer MEDICARE, SELFPAY | END 2022-05-03 11:36 | disposition home or self-care (01) | LOC: SPT 11:36 | PROVIDERS: PCP Internal Medicine; Visit Provider Podiatrist Foot & Ankle Surgery | DX: Z46.89 Encounter for fitting and adjustment of other specified devices (principal); M20.31 Hallux varus (acquired), right foot; M72.2 Plantar fascial fibromatosis; M77.41 Metatarsalgia, right foot | CPT/HCPCS: 97760; 99213; L3030 ==

== ENCOUNTER → 2022-05-22 14:56 | Outpatient (BNVA) | payer MEDICARE, SELFPAY | PROVIDERS: PCP Internal Medicine; Visit Provider Internal Medicine Pulmonary Disease | DX: J44.9 Chronic obstructive pulmonary disease, unspecified (principal); R91.1 Solitary pulmonary nodule; F17.210 Nicotine dependence, cigarettes, uncomplicated; Z12.2 Encounter for screening for malignant neoplasm of respiratory organs; Z71.6 Tobacco abuse counseling | CPT/HCPCS: 99214 ==

== ENCOUNTER 2022-05-30 05:40 | Day surgery (SDC) | payer MEDICARE, SELFPAY ==
[2022-05-26 13:21] VITALS: BMI 21.6
[2022-05-30] VITALS (8 sets, daily range): BP systolic 114–134; BP diastolic 60–77; PULSE 55–77; RESP 16–18; TEMP 36.1–36.6; O2SAT 93–98
[2022-05-30] MEDS: sodium chloride 0.9% 1,000 ML 30 ML IV (06:20)
--- NOTE | 2022-05-30 06:47 | ANES.PREANE2 ---
Pre-Anesthetic Assessment Height/Weight: Height 1.65 m Weight 58.967 kg Temp Pulse Resp BP Pulse Ox O2 Del Method 97.9 F 55 L 18 134/72 98 05/30/22 06:14 05/30/22 06:14 05/30/22 06:14 05/30/22 06:14 05/30/22 06:14 05/30/22 06:14 Preop Diagnosis: Lung Nodule Operation Date: 05/30/22 07:00 Proposed Procedures p Bronchoscopy and EBUS 19786, 12137, 71396, 03098, 75465,R91.1(Not Applicable) - Darci Whalen MD s Ebus(Not Applicable) - Darci RiverarMD Familial anesthetic complications: none Last intake: Intake Last Liquid Date 05/29/22 Last Liquid Time 20:00 Last Solid Date 05/29/22 Last Solid Time 20:00 Social Tobacco 1 pack(s) per day 40 pack years Exam alert, oriented x 3, clear to auscultation bilaterally and regular rate & rhythm Airway Submandibular: within normal limits Cervical ROM: within normal limits Mallampati: Class II Dentition: false Pulmonary Chronic Obstructive Pulmonary Disease and Sleep Apnea (CPAP compliant) CV/HEM None reported None reported Hepatic None reported GI None reported history of ulcers no current issues reported. Metabolic Hyperlipidemia and Thyroid Disease (hypothyroidism) Neuropsych denies anxiety or depression. Listed in patients medical history. Anesthetic Plan ASA status: 3 Anesthesia: General Medications/Allergies Home Medications Medication Instructions Recorded Confirmed Last Taken Type levothyroxine 25 mcg capsule 25 mcg PO DAILY@0800 09/22/19 05/30/22 05/29/22 History montelukast 10 mg tablet 10 mg PO DAILY@0800 09/22/19 05/30/22 05/29/22 History albuterol sulfate 90 mcg/actuation 2 puff inhalation QID PRN 02/13/20 05/30/22 05/29/22 History aerosol inhaler (Ventolin HFA) Shortness Of Breath Or Wheezing pantoprazole 40 mg tablet,delayed 40 mg PO BID@0800,1800 12/14/20 05/30/22 05/29/22 History release rosuvastatin 20 mg tablet 20 mg PO DAILY@0800 12/14/20 05/30/22 05/29/22 History cholecalciferol (vitamin D3) 25 1,000 unit PO TID 07/27/21 05/30/22 05/29/22 History mcg (1,000 unit) capsule cock up splint #1 ea 12/21/21 05/30/22 Unknown Rx Supinator to the Right #1 ea 03/01/22 05/30/22 Unknown Rx Sole Supports #1 ea 03/28/22 05/30/22 Unknown Rx amitriptyline 50 mg tablet 50 mg PO .bedtime #30 tabs 04/12/22 05/30/22 05/29/22 Rx naproxen 500 mg tablet 500 mg PO BID 04/24/22 05/30/22 05/29/22 History tiotropium 2.5 mcg-olodaterol 2.5 2 puff inhalation DAILY #4 grams 04/24/22 05/30/22 05/29/22 Rx mcg/actuation mist for inhalation (Stiolto Respimat) Allergies Allergy/AdvReac Type Severity Reaction Status Date / Time adhesive tape Allergy Intermediate ALGY-Rash Verified 05/22/22 15:41 Iodinated Contrast Media Allergy Mild itching Verified 05/22/22 15:41 Penicillins Allergy Mild hives Verified 05/22/22 15:41 Sulfa (Sulfonamide Allergy Mild hives Verified 05/22/22 15:41 Antibiotics) Current Medications Generic Name Dose Route Start Last Admin Trade Name Freq PRN Reason Stop Dose Admin Sodium Chloride 1,000 mls @ 30 mls/hr 05/30/22 06:15 05/30/22 06:20 Sodium Chloride 0.9% IV 05/31/22 06:14 30 mls/hr .Q24H JUNIOR Administration PFSH Anesthesia Medical History Cervical post-laminectomy syndrome (~07/04/16) Displacement of lumbar intervertebral disc SHE WILL NOTIFY NEUROSURGERY CLINIC IF/WHEN SHE WISHES TO FOLLOW-UP Generalized anxiety disorder Hx of fracture of clavicle repair fx collar bone. Hx of rotator cuff tear surgery, left Intervertebral disc disorder with radiculopathy of lumbosacral region Low back pain of over 3 months duration Major depressive disorder, recurrent, in partial remission Nicotine dependence, cigarettes, uncomplicated Posterior tibial tendon dysfunction (PTTD) of right lower extremity Psychiatric care Surgical History History of cervical spinal surgery (~07/04/16) Dr. Mujica, C5-C6 ACDFF History of cholecystectomy History of hysterectomy (~1979) History of shoulder surgery (~04/04/16) rotator cuff repair, right Family History Mother Parkinsons disease Father Myocardial infarction Social History Smoking and tobacco status: current every day smoker cigarettes Packs smoked per day: 1 Years cigarettes smoked: 39 Alcohol intake: never Household members: spouse Marital status: Current occupational status: unemployed and retired History of recent travel: No Data Anesthesia Cardiac Studies: No Data to Display
--- NOTE | 2022-05-30 07:03 | W.PM.OPSUD ---
Surgery/Procedure H&P Update DATE OF PROCEDURE: May 30, 2022 DATE H&P PERFORMED: 05/22/22 CHANGES TO PREVIOUS DOCUMENTATION: NONE PREOP DIAGNOSIS: Lung Nodule PRIMARY INDICATION FOR PROCEDURE: -Low-dose CT 04/06/2022:No pulmonary nodule. There is a 3.7 mm endobronchial nodule and a proximal segmental branch of the RIGHT lower lobe. This was probably present on the prior study but new since 03/05/2020. Otherwise no suspicious findings. PLANNED PROCEDURE: Operation Date: 05/30/22 07:00 Proposed Procedures p Bronchoscopy and EBUS 75223, 58347, 45129, 00949, 08539,R91.1(Not Applicable) - Darci Whalen MD s Ebus(Not Applicable) - Darci Whalen MD
[2022-05-30] MEDS: lidocaine 1% INJ 20 mL XX (07:17)
--- NOTE | 2022-05-30 07:35 | PM.OP ---
Operative Report Date of procedure: May 30, 2022 Pre-op diagnosis: Preop Diagnosis Lung Nodule Post-op diagnosis: No endobronchial lesions seen Procedure done: Flexible bronchoscopy with airway inspection Surgeon: Darci Whalen MD [facility] Brief History: 61-year-old lady with past medical history of 40-[id number]-qngi smoking history, hypothyroidism, hypertension, COPD underwent recent annual low-dose CT on 04/06/2022 reported 3.7 mm endobronchial nodule in the proximal segmental branch of the right lower lobe which may have present on 03/31/2021 but new since 03/05/2020.? No other suspicious findings in the lung. I have ordered PET/CT and her insurance approved her to get a PET/CT at [facility]. She refused to go to [facility] due to long distance commute. Today scheduled for bronchoscopic evaluation of endobronchial lesions and possible endobronchial ultrasound surveillance of hilar/mediastinal lymph nodes Procedure: Procedure: Flexible bronchoscopy with airway inspection, airway clearance of secretions and obtaining bronchoalveolar lavage sample Pre-Operative Diagnosis: Endobronchial lesion proximal segmental branch of right lower lobe Post-Operative Diagnosis: Same Indication:low-dose CT on 04/06/2022 reported 3.7 mm endobronchial nodule in the proximal segmental branch of the right lower lobe which may have present on 03/31/2021 but new since 03/05/2020.? Anesthesia: General-managed by anesthesia team Pre-procedure Evaluation: Patient was evaluated clinically and ancillary testing reviewed. The risk of having active MTB infection is very low in my clinical judgement. ASA: 3 Consent: Consents were obtained from patient and placed in the chart Procedure Details: Time out was performed by the procedure team and nursing staff. Vent support maintained on Fio2 100. The bronchoscope was introduced through the LMA. A bronchoscopic airway exam was performed to evaluate the visible tracheobronchial tree to the segmental level. Summary of Significant Findings: -Bronchoscope passed through LMA, mobile vocal cords seen with no lesions, 1 mL 1% lidocaine instilled and bronchoscope advanced through the glottis into the trachea. 1 mL 1% lidocaine instilled into the trachea, both right and left main bronchus. Trachea and main ashley were visualized which were sharp and normal. Then the scope was left bronchial tree was assessed to include the left mainstem bronchus, MELISSA, Lingula, and LLL bronchi to the segmental and subsegmental level. No active bleeding noted. Mucosa appeared normal. Mild mucopurulent secretions noted suctioned right away Then the scope was passed through the right bronchial tree was assessed to include the right mainstem bronchus, RBI, and RUL/RML/RLL bronchi to the segmental and subsegmental levels. There is anatomic variation of right upper lobe segments-did not see the normal trifurcation but can see bifurcation. After passing the scope through the anterior segment we can see the apical segment opening. The scope was then passed through bronchus intermedius and normal right middle lobe segments were noted. The endoscope was passed into the right lower lobe and again noted anatomic variant in right lower lobe with no trifurcation. The superior segment of right lower lobe appeared normal. Overall other than anatomic variants in right upper lobe and right lower lobe as mentioned above-I did not see any obvious endobronchial lesions as far as bronchoscope can go. No active bleeding noted. Mucosa appeared normal. Mild mucopurulent secretions noted through right lower lobe and middle lobe. BAL obtained from right lower lobe the bronchoscope was then removed and the procedure terminated. Attempted to use EBUS but due to technical problems using the swivel adapter, have aborted doing EBUS. Estimated Blood Loss: None Specimens: Bronchoalveolar lavage was taken from right lower lobe and sent for cell count, microbiology cultures and cytology. Complications:None; patient tolerated the procedure well. Disposition: Home Darci Whalen MD [facility] Pulmonary critical Care Medicine [facility]
[2022-05-30 09:16] LABS: Cyto Order Verification Order Verified
[2022-05-30 09:46] LABS: Apprearance, Bronch Wash Hazy (CLEAR); Color, Bronc Wash Colorless
[2022-05-30 09:54] LABS: Bronch Source RIGHT LOWER LOBE
[2022-05-30 11:23] LABS: Total Cells Counted Bronch 200
[2022-05-30 11:24] LABS: PATH Referral Yes
== END 2022-05-30 08:25 | disposition home or self-care (01) ==
PROVIDERS: PCP Internal Medicine; Visit Provider Internal Medicine Pulmonary Disease
PROC: 0BJ08ZZ Inspection of Tracheobronchial Tree, Via Natural or Artificial Opening Endoscopic (ICD-10-PCS; CPT 31622; principal; 2022-05-30 07:00)
PROC: BB4BZZZ Ultrasonography of Pleura (ICD-10-PCS; 2022-05-30 07:00)
DX: R91.1 Solitary pulmonary nodule (principal); Z87.891 Personal history of nicotine dependence; E03.9 Hypothyroidism, unspecified; I10 Essential (primary) hypertension; J44.9 Chronic obstructive pulmonary disease, unspecified; G47.30 Sleep apnea, unspecified; E78.5 Hyperlipidemia, unspecified
CPT/HCPCS: 31622; 31624; 80503; 87070; 87186; 87205; 88108; 89050; J1100; J2405; J2704; J7030

== ENCOUNTER → 2022-06-06 10:49 | Outpatient (BNVA) | payer MEDICARE, SELFPAY | PROVIDERS: PCP Internal Medicine; Visit Provider Podiatrist Foot & Ankle Surgery | DX: L84 Corns and callosities (principal); M20.31 Hallux varus (acquired), right foot; M77.41 Metatarsalgia, right foot; M72.2 Plantar fascial fibromatosis | CPT/HCPCS: 99214 ==

== ENCOUNTER → 2022-07-13 11:29 | Outpatient (BNVA) | payer MEDICARE, SELFPAY | PROVIDERS: PCP Internal Medicine; Visit Provider Internal Medicine Pulmonary Disease | DX: R91.1 Solitary pulmonary nodule (principal); J44.9 Chronic obstructive pulmonary disease, unspecified; F17.210 Nicotine dependence, cigarettes, uncomplicated; Z12.2 Encounter for screening for malignant neoplasm of respiratory organs; Z71.6 Tobacco abuse counseling | CPT/HCPCS: 99214 ==

== ENCOUNTER 2022-07-14 08:43 | Outpatient (CLI) | payer MEDICARE, SELFPAY ==
--- NOTE | 2022-07-14 08:54 | MM_ITS ---
WS: [email or web address] VIEWS: MLO and CC views both breasts. 3D digital tomosynthesis is also included in this exam. Comparison made with prior exam of 03/18/2015, 02/26/2017, 02/28/2018, 03/20/2019, 04/19/2020, 05/27/2021.. Findings: There was no sign of mass, architectural distortion or suspicious calcification in either breast. Sc attered fibroglandular densities MM/[place] [id number] Impression: BI-RADS: 2-Benign FOLLOW-UP: 1 Year Follow-up This mammogram was also analyzed by the Computer Aided Detection System [employer] General [employer].
== END 2022-07-14 08:44 | disposition home or self-care (01) ==
LOC: RAD 08:44
PROVIDERS: PCP Internal Medicine; Visit Provider Internal Medicine
DX: Z12.31 Encounter for screening mammogram for malignant neoplasm of breast (principal)
CPT/HCPCS: 77063; 77067

== ENCOUNTER 2022-07-20 12:49 | Outpatient (CLI) | payer MEDICARE, SELFPAY ==
--- NOTE | 2022-07-20 13:30 | CT_ITS ---
WS: [id number] CT CHEST WITHOUT INTRAVENOUS CONTRAST HISTORY: 3 month f/u endobronchial nodule TECHNIQUE: Contiguous 5 mm axial imaging performed on the thorax. Coronal and sagittal reformats are submitted. All CT scans at [facility] use at least one of these dose optimization techniques: automated exposure control; mA and/or kV adjustment per patient size (includes targeted exams where dose is matched to clinical indication); or iterative reconstruction. CONTRAST: None DLP: 595.78 mGy.cm COMPARISON: 04/05/2022 Lungs and central airway: No significant change in the nodule in the RIGHT lower lobe bronchus, image 41 of series 4. Nodule measures 4 mm in diameter. This nodule is not appreciably coronal but has not resolved. On the sagittal reformat this nodule extends over length of 10 mm along the anterior wall of the bronchus. No pulmonary mass. Pleura: Normal. No pleural effusion. Heart and pericardium: Normal size heart with no pericardial effusion. Mediastinum and santos: No adenopathy. There are a few very small subcentimeter lymph nodes. Vessels: Mild atherosclerosis aorta. No aneurysm. Chest wall and lower neck: No soft tissue masses. Upper abdomen: Small hiatal hernia. Prior cholecystectomy. Exophytic low-attenuation mass from the po sterior LEFT kidney measures 12 mm and incompletely visualized. Osseous structures: Mild thoracic kyphosis. CT/CT chest con [id number] IMPRESSION: 1. The RIGHT lower lobe endobronchial nodule is reidentified. Transverse diame ter 4 mm. On the sagittal reformat this nodule extends 10 mm along the bronchus . Recommend direct visualization and bronchoscopy. 2. Small hiatal hernia. No adenopathy.
== END 2022-07-20 12:50 | disposition home or self-care (01) ==
LOC: RAD 12:50
PROVIDERS: PCP Internal Medicine; Visit Provider Internal Medicine Pulmonary Disease
DX: R91.8 Other nonspecific abnormal finding of lung field (principal); K44.9 Diaphragmatic hernia without obstruction or gangrene
CPT/HCPCS: 71250

== ENCOUNTER 2022-07-24 13:49 | Outpatient (CLI) | payer MEDICARE, SELFPAY ==
--- NOTE | 2022-07-24 15:15 | MR_ITS ---
WS: [id number] MRI RIGHT FOOT without CONTRAST. COMPARISON: RIGHT foot radiograph 01/01/2022 Multiplanar, multisequence imaging is performed without contrast. Patient is status post hallux valgus repair with hardware. This hardware is causing artifact through the foot. Most significant artifact as on the heavily T2 weighted sequences. No acute fractures or ma lalignment. No healing fracture. There is mild degenerative change at the first metatarsophalangeal j oint. Toes are normally aligned otherwise. Lisfranc ligament appears intact. There is no widening bet ween the first and second proximal metatarsals. Limited evaluation of the Lisfranc ligament due to th e significant artifact through the foot. There are a few small subchondral cystic changes involving t he medial and intermediate cuneiforms. No fluid along the extensor or flexor tendon sheath. MR/MR foot RT wo con* [id number] IMPRESSION: 1. No stress fracture or healing fracture identified. 2. Mild degenerative changes in the mid foot. 3. No Lisfranc ligament injury. 4. Portions of the foot are obscured by artifact secondary to the bunionectomy and hardware placement.
== END 2022-07-24 13:50 | disposition home or self-care (01) ==
PROVIDERS: PCP Internal Medicine; Visit Provider Podiatrist Foot & Ankle Surgery
DX: M25.871 Other specified joint disorders, right ankle and foot (principal)
CPT/HCPCS: 73718

== ENCOUNTER 2022-07-26 09:50 | Outpatient (CLI) | payer MEDICARE, SELFPAY | END 2022-07-26 09:51 | disposition home or self-care (01) | PROVIDERS: PCP Internal Medicine; Visit Provider Internal Medicine Pulmonary Disease | DX: J44.9 Chronic obstructive pulmonary disease, unspecified (principal) | CPT/HCPCS: 17110; 94010; 94618; 94726; 94729 ==

== ENCOUNTER → 2022-08-24 13:21 | Outpatient (BNVA) | payer MEDICARE, SELFPAY | PROVIDERS: PCP Internal Medicine; Visit Provider Specialist | DX: M25.511 Pain in right shoulder (principal); Z71.89 Other specified counseling | CPT/HCPCS: 20610; J1100; J2795; J3301 ==

== ENCOUNTER 2022-09-20 15:48 | Outpatient (CLI) | payer MEDICARE, SELFPAY | END 2022-09-20 15:49 | disposition home or self-care (01) | LOC: SPT 15:49 | PROVIDERS: PCP Internal Medicine; Visit Provider Podiatrist Foot & Ankle Surgery | DX: Z46.89 Encounter for fitting and adjustment of other specified devices (principal); M25.871 Other specified joint disorders, right ankle and foot; Q82.8 Other specified congenital malformations of skin; M20.31 Hallux varus (acquired), right foot; M77.41 Metatarsalgia, right foot | CPT/HCPCS: 17110; 97760; L4361 ==

== ENCOUNTER → 2022-10-31 13:53 | Outpatient (BNVA) | payer MEDICARE, SELFPAY | PROVIDERS: PCP Internal Medicine; Visit Provider Podiatrist Foot & Ankle Surgery | DX: Q82.8 Other specified congenital malformations of skin (principal); L84 Corns and callosities; M20.31 Hallux varus (acquired), right foot; M77.41 Metatarsalgia, right foot; M25.871 Other specified joint disorders, right ankle and foot | CPT/HCPCS: 17110 ==

== ENCOUNTER → 2022-11-16 09:57 | Outpatient (BNVA) | payer MEDICARE, SELFPAY | PROVIDERS: PCP Internal Medicine; Visit Provider Specialist | DX: M75.81 Other shoulder lesions, right shoulder (principal); M19.011 Primary osteoarthritis, right shoulder; Z71.89 Other specified counseling | CPT/HCPCS: 20610; J1100; J2795; J3301 ==

== ENCOUNTER 2022-12-05 13:45 | Outpatient (CLI) | payer MEDICARE, SELFPAY ==
--- NOTE | 2022-12-05 14:38 | XR_ITS ---
WS: [email or web address] SCREENING DEXA SCAN [facility] CLINICAL INFORMATION: ASYMTOMATIC MENOPAUSAL STATUS COMPARISON: October 21, 2020 FINDINGS: The L1-L4 bone mineral density measures 0.85. This corresponds to a T score score of -2.6 and Z score of -1.2. Left femoral neck bone mineral density measures 0.752 g/cm2. This corresponds to a T score of -2.0 an d Z score of -1.0. Right femoral neck bone mineral density measures 0.741 g/cm2. This corresponds to a T score -2.1of an d Z score of -1.0. Mean femoral neck bone mineral density measures 0.747 g/cm2. This corresponds to a T score of -2.1 an d Z score of -1.0. XR/XR DEXA axial skeleton* [id number] IMPRESSION: Osteoporosis lumbar spine. Osteopenia femoral necks. Patient's FRAX calculated 10 year probability for major osteoporotic fracture i s 33.5 % and osteoporotic hip fracture is 6.7%. Bone mineral density in the lumbar spine has decreased -0.2% since 2020 Mineral density in the femoral necks has decreased -6.3% since 2020
== END 2022-12-05 13:46 | disposition home or self-care (01) ==
LOC: RAD 13:47
PROVIDERS: PCP Internal Medicine; Visit Provider Internal Medicine
DX: Z78.0 Asymptomatic menopausal state (principal); M18.0 Bilateral primary osteoarthritis of first carpometacarpal joints; M85.852 Other specified disorders of bone density and structure, left thigh; M85.851 Other specified disorders of bone density and structure, right thigh
CPT/HCPCS: 77080

== ENCOUNTER → 2023-01-02 13:49 | Outpatient (BNVA) | payer MEDICARE, SELFPAY | PROVIDERS: PCP Internal Medicine; Visit Provider Podiatrist Foot & Ankle Surgery | DX: Q82.8 Other specified congenital malformations of skin (principal); L84 Corns and callosities; M20.31 Hallux varus (acquired), right foot; M77.41 Metatarsalgia, right foot; M25.871 Other specified joint disorders, right ankle and foot | CPT/HCPCS: 17110 ==

== ENCOUNTER → 2023-01-09 11:34 | Outpatient (BNVA) | payer MEDICARE, SELFPAY | PROVIDERS: PCP Internal Medicine; Visit Provider Internal Medicine Pulmonary Disease | DX: R91.1 Solitary pulmonary nodule (principal); J44.9 Chronic obstructive pulmonary disease, unspecified; F17.210 Nicotine dependence, cigarettes, uncomplicated; Z71.6 Tobacco abuse counseling | CPT/HCPCS: 99214 ==

== ENCOUNTER 2023-01-10 13:48 | Outpatient (CLI) | payer MEDICARE, SELFPAY ==
--- NOTE | 2023-01-10 14:19 | XR_ITS ---
WS: [email or web address] XR knee LT 3V* [id number] REASON FOR EXAM: KNEE PAIN LEFT FINDINGS: No fracture or focal bone lesion. Medial knee joint space, is minimally narrowed with mild subchondral sclerosis. Lateral knee joint space is intact and relatively well-preserved. Patellofemoral joint space is intact without significant narrowing. Mild subchondral sclerosis and os teophytosis of the patella. XR/XR knee LT 3V* [id number] IMPRESSION: No acute abnormality. Mild osteoarthritis.
== END 2023-01-10 13:49 | disposition home or self-care (01) ==
LOC: RAD 14:13
PROVIDERS: PCP Internal Medicine; Visit Provider Nurse Practitioner Family
DX: M17.12 Unilateral primary osteoarthritis, left knee (principal); M25.562 Pain in left knee
CPT/HCPCS: 73562

== ENCOUNTER 2023-01-17 13:30 | Outpatient (CLI) | payer MEDICARE, SELFPAY ==
--- NOTE | 2023-01-17 15:00 | CT_ITS ---
WS: [email or web address] CT chest wo con [id number] HISTORY: follow up on right lower lobe lung nodule TECHNIQUE: Axial imaging performed through the thorax. Coronal and sagittal reformats are submitted. All CT scans at [facility] use at least one of these dose optimization techniques: automated exposure control; mA and/or kV adjustment per patient size (includes targeted exams where dose is mat ched to clinical indication); or iterative reconstruction. CONTRAST: None DLP: 165.29 mGy.cm COMPARISON: 07/20/2022, 04/05/2022 Lungs and central airway: Pulmonary hyperexpansion and chronic emphysema. No pulmonary mass or nodule . Endobronchial lesion in the RIGHT lower lobe is not identified today. The segmental branches identi fied but there is no intraluminal filling defect. This could possibly have been persistent mucus. Pleura: Normal. No pleural effusion. Heart and pericardium: Normal size heart with no pericardial effusion. Mediastinum and santos: No mediastinum or hilar adenopathy. Vessels: Mild atherosclerosis aorta. No aneurysm. Normal size pulmonary artery. Chest wall and lower neck: Prior ORIF LEFT clavicle. Upper abdomen: Small hiatal hernia. Prior cholecystectomy. 1.2 cm partially visualized LEFT low-atten uation mass is probably a cyst. No change since prior studies. Probable lipoma in the duodenal C-loop . Osseous structures: Increase in the lumbar lordosis. CT/CT chest wo con [id number] IMPRESSION: 1. Previously described RIGHT lower lobe endobronchial lesion is not identifie d. No intraluminal filling defect noted on any of the reformats. 2. Chronic emphysema. 3. No adenopathy 4. Prior cholecystectomy.
== END 2023-01-17 13:31 | disposition home or self-care (01) ==
LOC: RAD 13:36
PROVIDERS: PCP Internal Medicine; Visit Provider Internal Medicine Pulmonary Disease
DX: R91.1 Solitary pulmonary nodule (principal); J43.9 Emphysema, unspecified; Z90.49 Acquired absence of other specified parts of digestive tract
CPT/HCPCS: 71250; 99214

== ENCOUNTER → 2023-02-22 10:06 | Outpatient (BNVA) | payer MEDICARE, SELFPAY | PROVIDERS: PCP Internal Medicine; Visit Provider Specialist | DX: M75.81 Other shoulder lesions, right shoulder (principal) | CPT/HCPCS: 20610; J1100; J2795; J3301 ==

== ENCOUNTER → 2023-03-06 13:16 | Outpatient (BNVA) | payer MEDICARE, SELFPAY | PROVIDERS: PCP Internal Medicine; Visit Provider Podiatrist Foot & Ankle Surgery | DX: Q82.8 Other specified congenital malformations of skin (principal); M20.31 Hallux varus (acquired), right foot | CPT/HCPCS: 17110 ==

== ENCOUNTER 2023-03-17 12:37 | Outpatient (CLI) | payer MEDICARE, SELFPAY ==
--- NOTE | 2023-03-17 13:24 | XRR_ITS ---
PROCEDURE INFORMATION: Exam: XR Ribs Exam date and time: 03/17/2023 1:26 PM Age: 62 years old Clinical indication: Other: Left rib pain; Additional info: Pain left side, PT reports HX of rib fractures on both sides, increased pain left side TECHNIQUE: Imaging protocol: Radiologic exam of the of the ribs. Views: 3 views. Bilateral ribs. COMPARISON: CT chest con [id number] 01/17/2023 1:55 PM FINDINGS: Bones/joints: Postsurgical hardware of prior internal fixation of the left clavicle. Very subtle deformity of the lateral 7th rib on the left is seen. This could indicate subtle fracture. No significant fracture seen otherwise about the left ribs. Pleural space: No underlying pulmonary or pleural abnormality. Heart/Mediastinum: Upper limits of normal cardiac size. Soft tissues: Unremarkable. XR/XR ribs 3V* [id number] IMPRESSION: Very subtle deformity of the lateral 7th rib on the left could indicate subtle or minimal fracture. No acute findings otherwise.
== END 2023-03-17 12:38 | disposition home or self-care (01) ==
PROVIDERS: PCP Internal Medicine; Visit Provider Nurse Practitioner Family
DX: R07.81 Pleurodynia (principal)
CPT/HCPCS: 71110

== ENCOUNTER → 2023-04-17 13:08 | Outpatient (BNVA) | payer MEDICARE, SELFPAY | PROVIDERS: PCP Internal Medicine; Visit Provider Podiatrist Foot & Ankle Surgery | DX: Q82.8 Other specified congenital malformations of skin; M20.31 Hallux varus (acquired), right foot | CPT/HCPCS: 17110 ==

== ENCOUNTER → 2023-04-22 15:43 | Outpatient (BNVA) | payer MEDICARE, SELFPAY | PROVIDERS: PCP Internal Medicine; Visit Provider Nurse Practitioner | DX: M79.674 Pain in right toe(s) (principal); Z98.890 Other specified postprocedural states | CPT/HCPCS: 73630 ==

== ENCOUNTER → 2023-04-24 06:53 | Outpatient (BNVA) | payer MEDICARE, SELFPAY | PROVIDERS: PCP Internal Medicine; Visit Provider Podiatrist Foot & Ankle Surgery | DX: S90.121A Contusion of right lesser toe(s) without damage to nail, initial encounter (principal); W22.8XXA Striking against or struck by other objects, initial encounter | CPT/HCPCS: 99213 ==

== ENCOUNTER 2023-04-29 14:29 | Emergency (ER) | payer MEDICARE, SELFPAY ==
[2023-04-29 14:39] VITALS: BP 155/68; PULSE 86; RESP 17; TEMP 37.9; O2SAT 97
--- NOTE | 2023-04-29 14:46 | XRR_ITS ---
PROCEDURE INFORMATION: Exam: XR Right Shoulder Exam date and time: 04/29/2023 3:28 PM Age: 62 years old Clinical indication: Pain; Upper arm; Right TECHNIQUE: Imaging protocol: Radiologic exam of the right shoulder. Views: 2 or more views. COMPARISON: CR (CHEST, ) 03/17/2023 1:26 PM FINDINGS: Bones/joints: Osseous structures are intact. Negative for fracture. Joint spaces are preserved. Soft tissues: Normal. XR/XR shoulder RT min 2V* [id number] IMPRESSION: No acute findings.
--- NOTE | 2023-04-29 16:50 | ED_ITS ---
HPI - Extremity Problem General: Chief complaint: Extremity Problem,Nontraumatic Stated complaint: right shoulder pain Time Seen by Provider: 04/29/23 14:46 History of Present Illness: halina is a [id number] 62-year-old female that presents to the emergency department with right shoulder pain. Patient reports a history of right shoulder pain and has previously undergone rotator cuff repair. Patient arrives today with reports of shoulder pain without trauma. Onset of symptoms today when she woke up. She denies any numbness or tingling in the extremity Denies any weakness Associated symptoms: Deny chest pain, fever(s) or rash Review of Systems General: Reports: 10 or more systems reviewed and unremarkable except in HPI and below Const: Denies: fever(s), chills, change in appetite, change in weight, fatigue or malaise Eyes: Denies: change in vision, eye discomfort, eye discharge or eye redness ENMT: Denies: throat pain, enlarged tonsils, odynophagia, hoarseness, ear or mastoid pain, ear discharge, change in hearing, tinnitus, nasal discharge, nasal congestion, post nasal drip or sinus pain Card: Denies: chest pain, palpitations, irregular heart rhythm, edema, dyspnea on exertion, orthopnea or leg pain with exertion Resp: Denies: dyspnea, productive cough, non-productive cough, wheezing, stridor or chest congestion GI: Denies: abdominal pain, nausea, vomiting, dysphagia, diarrhea, constipation, bloating, GI cramping or hematochezia : Denies: flank pain, difficulty voiding, dysuria, urinary frequency, urinary urgency, urinary hesitancy, oliguria or hematuria Musc: Reports: extremity pain and joint pain; Denies: neck pain, back pain, joint swelling, joint redness, joint warmth or muscle weakness Skin/Breast: Denies: rash, pruritus, erythema, photosensitivity or new lesions Neuro: Denies: headache(s), numbness in extremities, weakness in extremities, sensory changes, lack of coordination, difficulty walking, frequent falls, dizziness, confusion, Slurred speech present, difficulty communicating thoughts, seizure-like activity or involuntary movements Endo: Denies: polyuria, polydipsia or tired all the time Donn/Lymph: Denies: easy bruising or easy bleeding PFS ED PFSH: Medical History Cervical post-laminectomy syndrome (~07/04/16) Displacement of lumbar intervertebral disc SHE WILL NOTIFY NEUROSURGERY CLINIC IF/WHEN SHE WISHES TO FOLLOW-UP Generalized anxiety disorder Hx of fracture of clavicle repair fx collar bone. Hx of rotator cuff tear surgery, left Intervertebral disc disorder with radiculopathy of lumbosacral region Low back pain of over 3 months duration Major depressive disorder, recurrent, in partial remission Nicotine dependence, cigarettes, uncomplicated Posterior tibial tendon dysfunction (PTTD) of right lower extremity Psychiatric care Surgical History History of cervical spinal surgery (~07/04/16) Dr. Mujica, C5-C6 ACDFF History of cholecystectomy History of hysterectomy (~1979) History of shoulder surgery (~04/04/16) rotator cuff repair, right Family History Mother Parkinsons disease Father Myocardial infarction Social History Smoking and tobacco status: current every day smoker cigarettes Packs smoked per day: 1 Years cigarettes smoked: 41 [ Other cigarette details: started at age 21] Alcohol intake: never Substance/Drug Use: never Household members: spouse Marital status: Current occupational status: unemployed and retired Physical Exam Const: COMMON NORMALS: no acute distress, patient oriented x3 and alert GENERAL APPEARANCE: cooperative ORIENTATION/CONSCIOUSNESS: Yes awake, Yes oriented to person, Yes oriented to place and Yes oriented to time HENMT: COMMON NORMALS: normocephalic and atraumatic HEAD & SCALP: normocephalic and atraumatic FACE & SINUS: normal facial exam MOUTH: Normal oral and palatal mucosa present THROAT: posterior oropharynx normal Eye: COMMON NORMALS: Equal, round and reactive pupils present, EOMs intact bilaterally, conjunctivae normal and no scleral icterus GENERAL EYE: appearance normal, both eyes and all related structures ALIGNMENT: Yes alignment normal PERIORBITAL: periorbital findings normal CONJUNCTIVA: Yes conjunctivae normal PUPIL: Yes Equal, round and reactive pupils present Neck/C-Spine: COMMON NORMALS: full ROM GENERAL: Yes normal visual inspection Lymph: LYMPHATIC: no lymphadenopathy noted Chest: COMMONS NORMALS: normal inspection of the chest Breast/axilla inspe ction: Yes no chest deformity, asymmetry, normal contours, no nodules, masses, tenderness Resp: COMMON NORMALS: normal respiratory effort, No retractions, No use of accessory muscles and clear to auscultation bilaterally EFFORT & INSPECTION: Yes able to speak in complete sentences and Yes symmetric chest movement AUSCULTATION: clear to auscultation bilaterally Cardio: COMMON NORMALS: regular rate, regular rhythm and Peripheral pulses 2+ throughout RATE: regular rate RHYTHM: regular rhythm PERIPHERAL PULSES: Peripheral pulses 2+ throughout GI: COMMON NORMALS: Normal to inspection, nondistended, normoactive bowel sounds present, Soft to palpation, non-tender and No hepatosplenomegaly present INSPECTION: Yes normal to inspection AUSCULTATION: Yes normoactive bowel sounds PALPATION: Yes Soft to palpation and Yes No hepatosplenomegaly present RECTAL EXAM: deferred Extremity: COMMON NORMALS: normal to inspection NARRATIVE EXTREMITY EXAM: Right upper extremity: Patient reports pain in the anterior right shoulder. Denies any extension or radiation of pain Patient has full active range of motion of shoulder She is full active range of motion of elbow She has full extension of wrist Plant Protection Guard, bicep, tricep strength is 4 -/5 equally bilateral She is able to give a thumbs up, make an okay sign, cross fingers, abduct fingers and make a fist Sensations intact throughout all distributions including axillary, radial, median, ulnar nerve distribution Radial pulses palpable and cap refills less than 2 seconds GENERAL: Yes normal exam except as noted Neuro: COMMON NORMALS: patient oriented x3 SENSORIUM/ORIENTATION: Yes alert, Yes oriented to person, Yes oriented to place and Yes oriented to time CRANIAL NERVES: Yes CN normal except as noted Psych: COMMON NORMALS: mental status grossly normal, Normal thought process present, cooperative, activity/motor behavior normal, denies homicidal ideation and denies suicidal ideation THOUGHT PROCESS: Normal thought process present Skin: COMMON NORMALS: no rashes or lesions noted, no wounds and turgor normal GENERAL SKIN EXAM: no rashes or lesions noted and turgor normal Course Vital Signs: Vital signs: Vital Signs Temperature 98 F 04/29/23 17:07 Pulse Rate 86 04/29/23 14:39 Respiratory Rate 17 04/29/23 14:39 Blood Pressure 155/68 04/29/23 14:39 Pulse Oximetry 97 04/29/23 14:39 Oxygen Delivery Me thod Room Air 04/29/23 14:39 MDM - Extremity (Nontraumatic) Medical Decision Making Patient was evaluated in the emergency department for ongoing right shoulder pain. Patient has a history of rotator cuff repair and the incision is well- healed. She also has a history of cervical intervertebral disc herniation that she has establish neurosurgical care with. Patient underwent XR imaging of the right shoulder which revealed no acute findings. Talked with patient about managing her pain. Have advised her to use NSAIDs plus rest and ice. Patient is to follow-up with her primary care doctor in 1 week if her pain is not improved. All questions answered Lab Data Radiology Impressions Shoulder X-Ray 04/29/23 14:46 IMPRESSION: No acute findings. Discharge Plan Discharge Patient Disposition: Home Clinical Impression: Right shoulder pain Condition: Stable Prescriptions: No Action montelukast 10 mg tablet 10 mg PO DAILY@0800 levothyroxine 25 mcg capsule 25 mcg PO DAILY@0800 cholecalciferol (vitamin D3) 25 mcg (1,000 unit) capsule 1,000 unit PO TID naproxen 500 mg tablet 500 mg PO BID Stiolto Respimat 2.5-2.5 mcg/actuation mist 2 puff inhalation DAILY Qty: 4 3RF (DME) cock up splint See Rx Instructions .Route .MEDSUPPLY Qty: 1 0RF Rx Instructions: As directed (DME) Sole Supports See Rx Instructions .Route .MEDSUPPLY Qty: 1 0RF Rx Instructions: As directed amitriptyline 50 mg tablet 50 mg PO .bedtime Qty: 90 2RF Rx Instructions: Take one tablet at bedtime (DME) Supinator to the Right See Rx Instructions .Route .MEDSUPPLY Qty: 1 0RF Rx Instructions: As directed (DME) Cam Boot to the right See Rx Instructions .Route .MEDSUPPLY Qty: 1 0RF Rx Instructions: As directed albuterol sulfate [Ventolin HFA] 90 mcg/actuation HFA aerosol inhaler 2 puff INHALATION QID PRN (Reason: Shortness Of Breath Or Wheezing) pantoprazole 40 mg tablet,delayed release (DR/EC) 40 mg PO BID@0800,1800 rosuvastatin 20 mg tablet 20 mg PO DAILY@0800 Discharge Orders: Discharge ED (Routine); Ordered 04/29/23 Ordered By: Yann Pickard Referrals: Samantha Evans MD [Primary Care Provider] - Discharge Diet: Advance as tolerated Discharge Activity: Resume usual activity Patient Instructions: Arthralgia (ED), Pain Management Activity Restrictions/Additional Instructions: Use rest ice, Tylenol, ibuprofen to help with pain. Work on gentle range of motion Follow-up with your orthopedic doctor or family provider if pain continues Coding Level of Care Code ED Mapping Technician for Aileen Anderson
[2023-04-29 17:07] VITALS: TEMP 36.6
== END 2023-04-29 17:08 | disposition home or self-care (01) ==
PROVIDERS: Emergency Provider Nurse Practitioner; PCP Internal Medicine
DX: M25.511 Pain in right shoulder (principal)
CPT/HCPCS: 73030; 99283

== ENCOUNTER → 2023-05-31 10:09 | Outpatient (BNVA) | payer MEDICARE, SELFPAY | PROVIDERS: PCP Internal Medicine; Visit Provider Specialist | DX: M19.011 Primary osteoarthritis, right shoulder (principal); M75.81 Other shoulder lesions, right shoulder | CPT/HCPCS: 20610; J1100; J2795; J3301 ==

== ENCOUNTER → 2023-07-16 08:37 | Outpatient (BNVA) | payer MEDICARE, SELFPAY | PROVIDERS: PCP Internal Medicine; Visit Provider Podiatrist Foot & Ankle Surgery | DX: L85.1 Acquired keratosis [keratoderma] palmaris et plantaris | CPT/HCPCS: 17110 ==

== ENCOUNTER → 2023-07-26 09:28 | Outpatient (BNVA) | payer MEDICARE, SELFPAY | PROVIDERS: PCP Internal Medicine; Visit Provider Internal Medicine Pulmonary Disease | DX: J44.9 Chronic obstructive pulmonary disease, unspecified (principal); F17.210 Nicotine dependence, cigarettes, uncomplicated; Z71.6 Tobacco abuse counseling | CPT/HCPCS: 99214 ==

== ENCOUNTER → 2023-09-27 12:37 | Outpatient (BNVA) | payer MEDICARE, SELFPAY | PROVIDERS: PCP Internal Medicine; Visit Provider Nurse Practitioner | DX: M75.81 Other shoulder lesions, right shoulder; M19.011 Primary osteoarthritis, right shoulder; Z71.89 Other specified counseling | CPT/HCPCS: 20610; J1100; J2795; J3301 ==

== ENCOUNTER → 2023-10-03 12:13 | Outpatient (BNVA) | payer MEDICARE, SELFPAY | PROVIDERS: PCP Internal Medicine; Visit Provider Podiatrist Foot & Ankle Surgery | DX: L85.1 Acquired keratosis [keratoderma] palmaris et plantaris | CPT/HCPCS: 17110 ==

== ENCOUNTER 2023-10-05 14:28 | Outpatient (CLI) | payer MEDICARE, SELFPAY ==
--- NOTE | 2023-10-05 14:30 | MM_ITS ---
WS: [id number] BILATERAL 3D TOMOSYNTHESIS DIGITAL SCREENING MAMMOGRAPHY WITH CAD CLINICAL INFORMATION: SCREENING HISTORY: Screening mammogram. No current complaints. COMPARISON: 07/14/2022 TECHNIQUE: Bilateral CC and MLO views. FINDINGS: Scattered fibroglandular densities bilaterally. No suspicious focal mass, asymmetry, calcifications, or architectural distortion. No evidence of malignancy. A few incidental punctate calcifications. IMPRESSION: MM/[place] [id number] BI-RADS: 2-Benign FOLLOW UP: 1 Year Follow-up Recommend return to annual screening mammography.
== END 2023-10-05 14:29 | disposition home or self-care (01) ==
LOC: RAD 14:28
PROVIDERS: PCP Internal Medicine; Visit Provider Internal Medicine
DX: Z12.31 Encounter for screening mammogram for malignant neoplasm of breast (principal); R92.323 Mammographic fibroglandular density, bilateral breasts
CPT/HCPCS: 77063; 77067

== ENCOUNTER → 2023-10-22 10:34 | Outpatient (BNVA) | payer MEDICARE, SELFPAY | PROVIDERS: PCP Internal Medicine; Visit Provider Specialist | DX: M62.442 Contracture of muscle, left hand; M79.642 Pain in left hand | CPT/HCPCS: 73130; 99214 ==

== ENCOUNTER → 2023-11-26 12:31 | Outpatient (BNVA) | payer MEDICARE, SELFPAY | PROVIDERS: PCP Internal Medicine; Visit Provider Podiatrist Foot & Ankle Surgery | DX: L85.1 Acquired keratosis [keratoderma] palmaris et plantaris | CPT/HCPCS: 17110 ==

== ENCOUNTER → 2023-12-21 10:41 | Outpatient (BNVA) | payer MEDICARE, SELFPAY | PROVIDERS: PCP Internal Medicine; Visit Provider Specialist | DX: M25.511 Pain in right shoulder (principal); Z71.89 Other specified counseling | CPT/HCPCS: 20610; J1100; J2795; J3301 ==

== ENCOUNTER → 2024-02-01 13:50 | Outpatient (BNVA) | payer MEDICARE, SELFPAY | PROVIDERS: PCP Internal Medicine; Visit Provider Podiatrist Foot & Ankle Surgery | DX: L85.1 Acquired keratosis [keratoderma] palmaris et plantaris | CPT/HCPCS: 17110 ==

== ENCOUNTER 2024-02-18 06:00 | Outpatient (CLI) | payer MEDICARE, SELFPAY | END 2024-02-18 23:59 | disposition home or self-care (01) | LOC: SPT 02-19 13:18 | PROVIDERS: Visit Provider Podiatrist Foot & Ankle Surgery | DX: Z46.89 Encounter for fitting and adjustment of other specified devices (principal); S93.601D Unspecified sprain of right foot, subsequent encounter; X58.XXXD Exposure to other specified factors, subsequent encounter | CPT/HCPCS: 97760; L4361 ==

== ENCOUNTER → 2024-02-18 11:36 | Outpatient (BNVA) | payer MEDICARE, SELFPAY | PROVIDERS: PCP Internal Medicine; Visit Provider Podiatrist Foot & Ankle Surgery | DX: S93.401A Sprain of unspecified ligament of right ankle, initial encounter; X50.1XXA Overexertion from prolonged static or awkward postures, initial encounter | CPT/HCPCS: 73630; 99213 ==

== ENCOUNTER 2024-03-17 10:20 | Outpatient (CLI) | payer MEDICARE, SELFPAY ==
--- NOTE | 2024-03-17 10:25 | CTR_ITS ---
PROCEDURE INFORMATION: Exam: CT Chest Without Contrast; Diagnostic Exam date and time: 03/17/2024 10:30 AM Age: 63 years old Clinical indication: Condition or disease; Lung condition and disease; Pulmonary nodule, solitary; Prior surgery; Surgery date: 6+ months; Surgery type: Clavicle TECHNIQUE: Imaging protocol: Diagnostic computed tomography of the chest without contrast. Radiation optimization: All CT scans at this facility use at least one of these dose optimization techniques: automated exposure control; mA and/or kV adjustment per patient size (includes targeted exams where dose is matched to clinical indication); or iterative reconstruction. COMPARISON: 1. CT chest wo con [id number] 01/17/2023 1:[address] lung screening [id number] 04/05/2022 2:28 PM RADIATION DOSE METRICS: Total DLP (mGy-cm): 202.56 FINDINGS: Lungs: The 4 mm right lower lobe endobronchial lesion seen on prior imaging is longer identified. There are centrilobular emphysematous changes in the upper lung zones. There are no acute pulmonary infiltrates identified. There are no pulmonary nodules identified. Pleural spaces: Unremarkable. No pneumothorax. No pleural effusion. Heart: Unremarkable. No cardiomegaly. No pericardial effusion. Coronary arteries: There are coronary artery calcifications. Lymph nodes: There are small, stable paratracheal nodes and prevascular nodes in the mediastinum. Vasculature: Unremarkable. No aortic aneurysm. Gallbladder and biliary ducts: Cholecystectomy. Kidneys and ureters: There is a 1.5 cm simple appearing left renal cortical cyst (partially imaged). Bones/joints: No acute osseous abnormality is identified. Previous ORIF of the left clavicle. Soft tissues: Unremarkable. CT/CT chest wo con [id number] IMPRESSION: 1. Centrilobular emphysema. 2. Stable small mediastinal lymph nodes. 3. The right lower lobe endobronchial lesion seen at the time of the previous study has resolved. COMMENTS: 1. Consistent with the [employer]'s Incidental Findings Committee white paper (J Am Russell Radiol 2018): Any incidental renal lesion less than 1 cm or classified as too small to characterize, or any incidental cystic renal lesion characterized as simple-appearing, is likely benign. No follow-up imaging is recommended for these lesions per consensus recommendations based on imaging criteria. 2. The presence of pulmonary emphysema on CT is an independent risk factor for lung cancer. In the absence of a history or active diagnosis of lung cancer, it is recommended that this patient with emphysema be evaluated for enrollment in a low dose CT lung cancer screening program.
== END 2024-03-17 10:21 | disposition home or self-care (01) ==
LOC: RAD 10:20
PROVIDERS: Visit Provider Internal Medicine
DX: R91.1 Solitary pulmonary nodule (principal); F17.218 Nicotine dependence, cigarettes, with other nicotine-induced disorders; J44.9 Chronic obstructive pulmonary disease, unspecified; J43.2 Centrilobular emphysema
CPT/HCPCS: 71250

== ENCOUNTER → 2024-03-28 09:12 | Outpatient (BNVA) | payer MEDICARE, SELFPAY | PROVIDERS: PCP Internal Medicine; Visit Provider Specialist | DX: M19.011 Primary osteoarthritis, right shoulder (principal); Z71.89 Other specified counseling | CPT/HCPCS: 20610; J1100; J2795; J3301 ==

== ENCOUNTER → 2024-05-19 10:12 | Outpatient (BNVA) | payer MEDICARE, SELFPAY | PROVIDERS: PCP Internal Medicine; Visit Provider Podiatrist Foot & Ankle Surgery | DX: S93.401A Sprain of unspecified ligament of right ankle, initial encounter; X58.XXXA Exposure to other specified factors, initial encounter | CPT/HCPCS: 73610 ==

== ENCOUNTER 2024-05-19 10:40 | Outpatient (CLI) | payer MEDICARE, SELFPAY | END 2024-05-19 10:41 | disposition home or self-care (01) | LOC: SPT 10:41 | PROVIDERS: PCP Internal Medicine; Visit Provider Podiatrist Foot & Ankle Surgery | DX: Z46.89 Encounter for fitting and adjustment of other specified devices (principal); S93.409D Sprain of unspecified ligament of unspecified ankle, subsequent encounter; X58.XXXD Exposure to other specified factors, subsequent encounter | CPT/HCPCS: 99213; L4361 ==

== ENCOUNTER → 2024-07-09 08:43 | Outpatient (BNVA) | payer MEDICARE, SELFPAY | PROVIDERS: PCP Internal Medicine; Visit Provider Podiatrist Foot & Ankle Surgery | DX: S93.421A Sprain of deltoid ligament of right ankle, initial encounter (principal); X58.XXXA Exposure to other specified factors, initial encounter | CPT/HCPCS: 73610; 73630; 99213 ==

== ENCOUNTER 2024-09-20 10:38 | Emergency (ER) | payer MEDICARE, SELFPAY ==
--- NOTE | 2024-09-20 10:40 | XRR_ITS ---
PROCEDURE INFORMATION: Exam: XR Left Knee Exam date and time: 09/20/2024 11:36 AM Age: 64 years old Clinical indication: Pain; Knee; Left; Additional info: Lt knee pain x 3 weeks; Worse after tripping yesterday TECHNIQUE: Imaging protocol: Radiologic exam of the left knee. Views: 3 views. COMPARISON: CR XR foot LT min 3V* [id number] 07/09/2024 8:44 AM FINDINGS: Bones/joints: Normal. No fracture or dislocation. No acute osseous or joint abnormality. Soft tissues: Normal. XR/XR knee LT 3V* [id number] IMPRESSION: No acute findings.
[2024-09-20 10:59] VITALS: BP 118/58; PULSE 74; RESP 16; TEMP 36.7; O2SAT 99; BMI 21.6
--- NOTE | 2024-09-20 14:53 | ED_ITS ---
HPI - Extremity Problem General: Chief complaint: Extremity Injury, Lower Stated complaint: knee pain - Lft Time Seen by Provider: 09/20/24 10:48 History of Present Illness: Patient is a 64-year-old female that presents to the emergency department with complaints of left knee pain. Patient reports it started approximately 3 weeks ago. Patient states she has not been able to sleep for the last 2 nights and she feels the pain is getting worse. She describes the pain as a sharp stabbing pain that is intermittent. Pain does not radiate from her back and does not radiate past the level of the knee. She denies any falls or injuries. She has no obvious swelling or deformity. Related Data Home Medications Medication Instructions Recorded Confirmed levothyroxine 25 mcg capsule 25 mcg PO DAILY@0800 09/22/19 07/09/24 montelukast 10 mg tablet 10 mg PO DAILY@0800 09/22/19 07/09/24 albuterol sulfate 90 mcg/actuation 2 puff inhalation QID PRN 02/13/20 07/09/24 aerosol inhaler (Ventolin HFA) Shortness Of Breath Or Wheezing pantoprazole 40 mg tablet,delayed 40 mg PO BID@0800,1800 12/14/20 07/09/24 release rosuvastatin 20 mg tablet 20 mg PO DAILY@0800 12/14/20 07/09/24 cholecalciferol (vitamin D3) 25 1,000 unit PO TID 07/27/21 07/09/24 mcg (1,000 unit) capsule naproxen 500 mg tablet 500 mg PO BID 04/24/22 07/09/24 tiotropium 2.5 mcg-olodaterol 2.5 2 puff inhalation .every other day 07/26/23 07/09/24 mcg/actuation mist for inhalation (Stiolto Respimat) Previous Rx's Medication Instructions Recorded cock up splint #1 ea 12/21/21 Supinator to the Right #1 ea 03/01/22 Sole Supports #1 ea 03/28/22 Cam Boot to the right #1 ea 09/20/22 Cam boot to right #1 ea 02/18/24 amitriptyline 50 mg tablet 50 mg PO .bedtime #90 tabs 02/27/24 CAM walker #1 ea 05/19/24 ketorolac 10 mg tablet 10 mg PO TID 5 days #15 tabs 09/20/24 Allergies Allergy/AdvReac Type Severity Reaction Status Date / Time adhesive tape Allergy Intermediate ALGY-Rash Verified 07/09/24 08:41 Iodinated Contrast Media Allergy Mild itching Verified 07/09/24 08:41 Penicillins Allergy Mild hives Verified 07/09/24 08:41 Sulfa (Sulfonamide Allergy Mild hives Verified 07/09/24 08:41 Antibiotics) Review of Systems General: Reports: 10 or more systems reviewed and unremarkable except in HPI and below PFSH ED PFSH: Medical History Posterior tibial tendon dysfunction (PTTD) of right lower extremity Psychiatric care Displacement of lumbar intervertebral disc SHE WILL NOTIFY NEUROSURGERY CLINIC IF/WHEN SHE WISHES TO FOLLOW-UP Intervertebral disc disorder with radiculopathy of lumbosacral region Nicotine dependence, cigarettes, uncomplicated Generalized anxiety disorder Major depressive disorder, recurrent, in partial remission Hx of fracture of clavicle repair fx collar bone. Hx of rotator cuff tear surgery, left Cervical post-laminectomy syndrome (~07/04/16) Low back pain of over 3 months duration Surgical History History of shoulder surgery (~04/04/16) rotator cuff repair, right History of cholecystectomy History of hysterectomy (~1979) History of cervical spinal surgery (~07/04/16) Dr. Mujica, C5-C6 ACDFF Family History Mother Parkinson disease Father Myocardial infarction Social History Smoking and tobacco/nicotine status: current every day tobacco/nicotine user cigarettes Packs smoked per day: 1 Years cigarettes smoked: 41 [ Other cigarette details: started at age 21] Alcohol intake: never Substance/Drug Use: never Household members: spouse Marital status: Current occupational status: unemployed and retired Physical Exam Const: COMMON NORMALS: no acute distress, patient oriented x3 and alert GEN ERAL APPEARANCE: cooperative ORIENTATION/CONSCIOUSNESS: Yes awake, Yes oriented to person, Yes oriented to place and Yes oriented to time Resp: COMMON NORMALS: normal respiratory effort, No retractions and No use of accessory muscles EFFORT & INSPECTION: Yes able to speak in complete sentences and Yes symmetric chest movement Cardio: COMMON NORMALS: regular rate and Peripheral pulses 2+ throughout RATE: regular rate PERIPHERAL PULSES: Peripheral pulses 2+ throughout GI: COMMON NORMALS: Normal to inspection, nondistended, normoactive bowel sounds present, Soft to palpation, non-tender and No hepatosplenomegaly present INSPECTION: Yes normal to inspection AUSCULTATION: Yes normoactive bowel sounds PALPATION: Yes Soft to palpation and Yes No hepatosplenomegaly present RECTAL EXAM: deferred Extremity: COMMON NORMALS: normal to inspection NARRATIVE EXTREMITY EXAM: Left lower extremity: Skin is clean dry and intact No edema or swelling present. Patient reports pain at the knee both anterior and posterior but no tenderness to palpation. Patient is able to flex and extend the knee. No evidence of instability. Patient is able to ambulate without difficulty with the left lower extremity but she does report pain with weightbearing. Sensation intact throughout the extremity GENERAL: Yes normal exam except as noted Neuro: COMMON NORMALS: patient oriented x3 SENSORIUM/ORIENTATION: Yes alert, Yes oriented to person, Yes oriented to place and Yes oriented to time CRANIAL NERVES: Yes CN normal except as noted Psych: COMMON NORMALS: mental status grossly normal, Normal thought process present, cooperative, activity/motor behavior normal, denies homicidal ideation and denies suicidal ideation THOUGHT PROCESS: Normal thought process present Skin: COMMON NORMALS: no rashes or lesions noted, no wounds and turgor normal GENERAL SKIN EXAM: no rashes or lesions noted and turgor normal Course Vital Signs: Vital signs: Vital Signs Temperature 98.1 F 09/20/24 10:59 Pulse Rate 74 09/20/24 10:59 Respiratory Rate 16 09/20/24 10:59 Blood Pressure 118/58 09/20/24 10:59 Pulse Oximetry 99 09/20/24 10:59 Oxygen Delivery Me thod Room Air 09/20/24 10:59 MDM - Extremity (Nontraumatic) Medical Decision Making Patient was evaluated in the emergency department today for complaints of left knee pain. Denies any known injury or trauma. She says that just developed on its own. She is in a removable boot on the right lower extremity and is currently being managed by .. She underwent XR imaging of the left knee which reveals no fracture, fracture dislocation or any other bony abnormality. Patient may need further diagnostic evaluation such as an MRI but we are unable to do that here. There is no evidence of instability and she denies any trauma. Going to treat her with ketorolac. I am going to have her follow-up with Dr. Dumont or primary care for further discussion. She will be sent home on a short course of ketorolac Lab Data Radiology Impressions Knee X-Ray 09/20/24 10:40 IMPRESSION: No acute findings. All radiology interpretation(s) finalized by discharge Discharge Plan Discharge Patient Disposition: Home Clinical Impression: Acute knee pain Condition: Stable Prescriptions: New ketorolac 10 mg tablet 10 mg PO TID 5 Days Qty: 15 0RF Rx Instructions: Do not take Naprosyn/naproxen or other nonsteroidal anti-inflammatory drugs while taking this medication No Action montelukast 10 mg tablet 10 mg PO DAILY@0800 levothyroxine 25 mcg capsule 25 mcg PO DAILY@0800 cholecalciferol (vitamin D3) 25 mcg (1,000 unit) capsule 1,000 unit PO TID naproxen 500 mg tablet 500 mg PO BID (DME) cock up splint See Rx Instructions .Route .MEDSUPPLY Qty: 1 0RF Rx Instructions: As directed (DME) Sole Supports See Rx Instructions .Route .MEDSUPPLY Qty: 1 0RF Rx Instructions: As directed (DME) Supinator to the Right See Rx Instructions .Route .MEDSUPPLY Qty: 1 0RF Rx Instructions: As directed (DME) Cam Boot to the right See Rx Instructions .Route .MEDSUPPLY Qty: 1 0RF Rx Instructions: As directed Stiolto Respimat 2.5-2.5 mcg/actuation mist 2 puff inhalation .every other day amitriptyline 50 mg tablet 50 mg PO .bedtime Qty: 90 2RF Rx Instructions: Take one tablet at bedtime (DME) CAM walker See Rx Instructions .Route .MEDSUPPLY Qty: 1 0RF Rx Instructions: As directed (DME) Cam boot to right See Rx Instructions .Route .MEDSUPPLY Qty: 1 0RF Rx Instructions: As directed albuterol sulfate [Ventolin HFA] 90 mcg/actuation HFA aerosol inhaler 2 puff INHALATION QID PRN (Reason: Shortness Of Breath Or Wheezing) pantoprazole 40 mg tablet,delayed release (DR/EC) 40 mg PO BID@0800,1800 rosuvastatin 20 mg tablet 20 mg PO DAILY@0800 Discharge Orders: Discharge ED (Routine); Ordered 09/20/24 Ordered By: Yann Pickard Referrals: Samantha Evans MD [Primary Care Provider] - Discharge Diet: Advance as tolerated Discharge Activity: Resume usual activity Patient Instructions: Pain Management, Knee Pain (ED) Activity Restrictions/Additional Instructions: Please follow-up with your primary care doctor or orthopedic surgeon for ongoing knee pain. Please return to the emergency department for new, concerning, worsening symptoms Coding Level of Care Code ED Solution Design And Analysis Manager for Aileen Anderson
[2024-09-20] MEDS: ketorolac 10 mg Tablet PO (14:59)
== END 2024-09-20 15:19 | disposition home or self-care (01) ==
PROVIDERS: Emergency Provider Nurse Practitioner; PCP Internal Medicine
DX: M25.562 Pain in left knee (principal); F17.210 Nicotine dependence, cigarettes, uncomplicated
CPT/HCPCS: 73562; 99283

== ENCOUNTER 2024-10-05 12:25 | Emergency (ER) | payer MEDICARE, MEDICAID, SELFPAY ==
[2024-10-05 13:14] VITALS: BP 124/84; PULSE 67; RESP 16; TEMP 36.9; O2SAT 98; BMI 22.3
--- NOTE | 2024-10-05 14:45 | CTR_ITS ---
PROCEDURE INFORMATION: Exam: CT Maxillofacial Without Contrast Exam date and time: 10/05/2024 3:06 PM Age: 64 years old Clinical indication: Injury or trauma; Fall; Blunt trauma (contusions or hematomas); Nose; Additional info: Fall injury TECHNIQUE: Imaging protocol: Computed tomography of the face without contrast. Radiation optimization: All CT scans at this facility use at least one of these dose optimization techniques: automated exposure control; mA and/or kV adjustment per patient size (includes targeted exams where dose is matched to clinical indication); or iterative reconstruction. COMPARISON: MR orbit face neck wo/w* [id number] 02/03/2021 9:31 AM RADIATION DOSE METRICS: Total DLP (mGy-cm): 583.88 FINDINGS: Paranasal sinuses: There is mild mucosal disease in maxillary sinuses. There is well aerated right lawrence bullosa. Orbital cavities: Orbits are normal. Globes are unremarkable. Mastoid air cells: Small amount of opacification in posteroinferior aspect of left mastoid. Clear right mastoid. Oral cavity: There is high density in the superior aspect of the lateral oral cavity on right and correlate with inspection or questioning the patient what was / is in the oral cavity. Bones: Nasal septum is deviated to left with septal spur. There is no acute facial bone fracture. Left facet degenerative changes are noted at C3-C4 with minimal anterolisthesis. There is spinal fusion hardware partially visualized at C5-C6. Soft tissues: Unremarkable. CT/CT facial bones wo con* [id number] IMPRESSION: 1. No acute fracture. 2. Density right oral cavity and correlate clinically.
--- NOTE | 2024-10-05 14:45 | XRR_ITS ---
PROCEDURE INFORMATION: Exam: XR Right Ribs with PA Chest Exam date and time: 10/05/2024 3:11 PM Age: 64 years old Clinical indication: Chest wall pain; Right; Patient HX: RT lower rib pain post fall TECHNIQUE: Imaging protocol: Radiologic exam of the right ribs with PA chest. Views: 3 views COMPARISON: CT chest con [id number] 03/17/2024 10:30 AM FINDINGS: Lungs: No consolidation or acute pulmonary finding. Pleural spaces: Unremarkable. No pleural effusion. No pneumothorax. Heart/Mediastinum: Unremarkable. No cardiomegaly. Bones/joints: There is plate and screw fixation of left clavicle. There is fusion hardware in lower cervical spine. Bones are demineralized. This limits evaluation. No definite acute rib fracture. XR/XR ribs RT mn 3V w CXR1V [id number] IMPRESSION: No definite acute rib fracture.
--- NOTE | 2024-10-05 14:52 | W.ED.FALL ---
HPI - Fall General: Chief Complaint: Fall Stated Complaint: fall, nose pain and rib pain Time Seen by Provider: 10/05/24 14:20 History of Present Illness: Patient got up to go to the bathroom last night and was walking back and tripped over her dog. Patient has an abrasion to her nose and some mild nasal bridge swelling. Patient also reports right rib pain. Patient appears nontoxic. Patient appears no acute distress. Patient is alert and oriented. Patient denies any chronic medical problems. Patient does report a history of fusion of her cervical neck. Related Data Home Medications Medication Instructions Recorded Confirmed levothyroxine 25 mcg capsule 25 mcg PO DAILY@0800 09/22/19 07/09/24 montelukast 10 mg tablet 10 mg PO DAILY@0800 09/22/19 07/09/24 albuterol sulfate 90 mcg/actuation 2 puff inhalation QID PRN 02/13/20 07/09/24 aerosol inhaler (Ventolin HFA) Shortness Of Breath Or Wheezing pantoprazole 40 mg tablet,delayed 40 mg PO BID@0800,1800 12/14/20 07/09/24 release rosuvastatin 20 mg tablet 20 mg PO DAILY@0800 12/14/20 07/09/24 cholecalciferol (vitamin D3) 25 1,000 unit PO TID 07/27/21 07/09/24 mcg (1,000 unit) capsule naproxen 500 mg tablet 500 mg PO BID 04/24/22 07/09/24 tiotropium 2.5 mcg-olodaterol 2.5 2 puff inhalation .every other day 07/26/23 07/09/24 mcg/actuation mist for inhalation (Stiolto Respimat) Previous Rx's Medication Instructions Recorded cock up splint #1 ea 12/21/21 Supinator to the Right #1 ea 03/01/22 Sole Supports #1 ea 03/28/22 Cam Boot to the right #1 ea 09/20/22 Cam boot to right #1 ea 02/18/24 amitriptyline 50 mg tablet 50 mg PO .bedtime #90 tabs 02/27/24 CAM walker #1 ea 05/19/24 celecoxib 100 mg capsule 100 mg PO BID #20 caps 10/05/24 hydrocodone 5 mg-acetaminophen 325 1 tab PO Q8H PRN pain 2 days #6 10/05/24 mg tablet tabs Allergies Allergy/AdvReac Type Severity Reaction Status Date / Time adhesive tape Allergy Intermediate ALGY-Rash Verified 10/05/24 13:14 Iodinated Contrast Media Allergy Mild itching Verified 10/05/24 13:14 Penicillins Allergy Mild hives Verified 10/05/24 13:14 Sulfa (Sulfonamide Allergy Mild hives Verified 10/05/24 13:14 Antibiotics) Review of Systems General: Reports: 10 or more systems reviewed and unremarkable except in HPI and below Musc: Reports: other (Right rib pain, nasal bone pain) PFSH ED PFSH: Medical History Posterior tibial tendon dysfunction (PTTD) of right lower extremity Psychiatric care Displacement of lumbar intervertebral disc SHE WILL NOTIFY NEUROSURGERY CLINIC IF/WHEN SHE WISHES TO FOLLOW-UP Intervertebral disc disorder with radiculopathy of lumbosacral region Nicotine dependence, cigarettes, uncomplicated Generalized anxiety disorder Major depressive disorder, recurrent, in partial remission Hx of fracture of clavicle repair fx collar bone. Hx of rotator cuff tear surgery, left Cervical post-laminectomy syndrome (~07/04/16) Low back pain of over 3 months duration Surgical History History of shoulder surgery (~04/04/16) rotator cuff repair, right History of cholecystectomy History of hysterectomy (~1979) History of cervical spinal surgery (~07/04/16) Dr. Mujica, C5-C6 ACDFF Family History Mother Parkinson disease Father Myocardial infarction Social History Smoking and tobacco/nicotine status: current every day tobacco/nicotine user cigarettes Packs smoked per day: 1 Years cigarettes smoked: 41 [ Other cigarette details: started at age 21] Alcohol intake: never Substance/Drug Use: never Household members: spouse Marital status: Current occupational status: unemployed and retired Physical Exam Const: COMMON NORMALS: alert HENMT: OTHER: Abrasion to the nose, swelling of nasal bridge. Eye: GENERAL EYE: appearance normal, both eyes and all related structures Neck/C-Spine: COMMON NORMALS: full ROM Chest: OTHER: Tenderness lateral ribs right side Resp: COMMON NORMALS: normal respiratory effort and clear to auscultation bilaterally AUSCULTATION: clear to auscultation bilaterally Cardio: COMMON NORMALS: regular rate RATE: regular rate GI: COMMON NORMALS: non-tender Back/Pelvis: COMMON NORMALS: thoracic and lumbar spine normal to inspection Extremity: COMMON NORMALS: normal to inspection Neuro: SENSORIUM/ORIENTATION: Yes alert Skin: COMMON NORMALS: turgor normal NARRATIVE SKIN EXAM: Superficial abrasion nasal bridge GENERAL SKIN EXAM: turgor normal Course Vital Signs: Vital signs: Vital Signs Temperature 98.5 F 10/05/24 13:14 Pulse Rate 67 10/05/24 13:14 Respiratory Rate 16 10/05/24 13:14 Blood Pressure 124/84 10/05/24 13:14 Pulse Oximetry 98 10/05/24 13:14 MDM - Fall Medical Decision Making Patient comes in today for injury to the nose and right ribs. On exam patient appears nontoxic. Patient appears no acute distress. Respirations are even. Lungs are clear to auscultation. Differential diagnosis includes not limited to facial fracture, abrasion nose, rib fracture, contusion. CT of the facial bones noted no acute fractures. Density in the right oral cavity was a piece of candy/gum reported by patient. Oral pharynx was normal. X-rays of the ribs noted no fractures. Reviewed exam with patient recommended treatment with medications to help with pain and inflammation. Prescriptions were sent to [facility] pharmacy. Patient reported understanding. Patient was discharged home. Lab Data Radiology Impressions Face CT 10/05/24 14:45 IMPRESSION: 1. No acute fracture. 2. Density right oral cavity and correlate clinically. Ribs X-Ray 10/05/24 14:45 IMPRESSION: No definite acute rib fracture. All radiology interpretation(s) finalized by discharge Discharge Plan Discharge Patient Disposition: Home Clinical Impression: Fall from slip, trip, or stumble Qualifiers: Encounter type: initial encounter Qualified Code(s): W01.0XXA - Fall on same level from slipping, tripping and stumbling without subsequent striking against object, initial encounter Nasal abrasion Qualifiers: Encounter type: initial encounter Qualified Code(s): S00.31XA - Abrasion of nose, initial encounter Contusion of rib on right side Qualifiers: Encounter type: initial encounter Qualified Code(s): S20.211A - Contusion of right front wall of thorax, initial encounter Condition: Stable Prescriptions: New celecoxib 100 mg capsule 100 mg PO BID Qty: 20 0RF hydrocodone-acetaminophen 5-325 mg tablet 1 tab PO Q8H PRN (Reason: pain) 2 Days Qty: 6 0RF No Action montelukast 10 mg tablet 10 mg PO DAILY@0800 levothyroxine 25 mcg capsule 25 mcg PO DAILY@0800 cholecalciferol (vitamin D3) 25 mcg (1,000 unit) capsule 1,000 unit PO TID naproxen 500 mg tablet 500 mg PO BID (DME) cock up splint See Rx Instructions .Route .MEDSUPPLY Qty: 1 0RF Rx Instructions: As directed (DME) Sole Supports See Rx Instructions .Route .MEDSUPPLY Qty: 1 0RF Rx Instructions: As directed (DME) Supinator to the Right See Rx Instructions .Route .MEDSUPPLY Qty: 1 0RF Rx Instructions: As directed (DME) Cam Boot to the right See Rx Instructions .Route .MEDSUPPLY Qty: 1 0RF Rx Instructions: As directed Stiolto Respimat 2.5-2.5 mcg/actuation mist 2 puff inhalation .every other day amitriptyline 50 mg tablet 50 mg PO .bedtime Qty: 90 2RF Rx Instructions: Take one tablet at bedtime (DME) CAM walker See Rx Instructions .Route .MEDSUPPLY Qty: 1 0RF Rx Instructions: As directed (DME) Cam boot to right See Rx Instructions .Route .MEDSUPPLY Qty: 1 0RF Rx Instructions: As directed albuterol sulfate [Ventolin HFA] 90 mcg/actuation HFA aerosol inhaler 2 puff INHALATION QID PRN (Reason: Shortness Of Breath Or Wheezing) pantoprazole 40 mg tablet,delayed release (DR/EC) 40 mg PO BID@0800,1800 rosuvastatin 20 mg tablet 20 mg PO DAILY@0800 Discharge Orders: Discharge ED (Routine); Ordered 10/05/24 Ordered By: Nickolas Cloud Referrals: Samantha Evans MD [Primary Care Provider] - Discharge Diet: Usual diet Discharge Activity: Increase activity as tolerated Patient Instructions: Contusion in Adults (ED) Activity Restrictions/Additional Instructions: Use ice to help with pain and discomfort. Take medications as needed for pain and discomfort. Follow-up with primary care for further instructions. Return to ED for new concerns. 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
[2024-10-05] MEDS: HYDROcodone-acetaminophen 7.5-325 mg Tablet 1 TAB PO (14:58)
== END 2024-10-05 17:09 | disposition home or self-care (01) ==
PROVIDERS: Emergency Provider Nurse Practitioner Family; PCP Internal Medicine
DX: S20.211A Contusion of right front wall of thorax, initial encounter (principal); S00.91XA Abrasion of unspecified part of head, initial encounter; W01.0XXA Fall on same level from slipping, tripping and stumbling without subsequent striking against object, initial encounter; F17.210 Nicotine dependence, cigarettes, uncomplicated
CPT/HCPCS: 70486; 71101; 99284

== ENCOUNTER → 2024-10-08 14:51 | Outpatient (BNVA) | payer MEDICARE, MEDICAID, SELFPAY | PROVIDERS: PCP Internal Medicine; Visit Provider Nurse Practitioner | DX: M17.12 Unilateral primary osteoarthritis, left knee; S76.112A Strain of left quadriceps muscle, fascia and tendon, initial encounter; X58.XXXA Exposure to other specified factors, initial encounter | CPT/HCPCS: 73560; 73565; 99214 ==

== ENCOUNTER → 2024-11-18 13:40 | Outpatient (BNVA) | payer MEDICARE, MEDICAID, SELFPAY | PROVIDERS: PCP Internal Medicine; Visit Provider Podiatrist Foot & Ankle Surgery | DX: L84 Corns and callosities (principal); S93.491D Sprain of other ligament of right ankle, subsequent encounter; X58.XXXD Exposure to other specified factors, subsequent encounter | CPT/HCPCS: 99213 ==

== ENCOUNTER → 2024-12-18 12:45 | Outpatient (BNVA) | payer MEDICARE, MEDICAID, SELFPAY | PROVIDERS: PCP Internal Medicine; Visit Provider Podiatrist Foot & Ankle Surgery | DX: S93.401A Sprain of unspecified ligament of right ankle, initial encounter (principal); S90.31XA Contusion of right foot, initial encounter; W22.8XXA Striking against or struck by other objects, initial encounter | CPT/HCPCS: 73630; 99213 ==

== ENCOUNTER → 2024-12-19 13:18 | Outpatient (BNVA) | payer MEDICARE, MEDICAID, SELFPAY | PROVIDERS: PCP Internal Medicine; Visit Provider Nurse Practitioner | DX: M17.12 Unilateral primary osteoarthritis, left knee (principal); S76.112D Strain of left quadriceps muscle, fascia and tendon, subsequent encounter; W19.XXXD Unspecified fall, subsequent encounter | CPT/HCPCS: 20610; 99214; J1100; J2795; J3301; J9999 ==

== ENCOUNTER 2024-12-22 14:11 | Outpatient (CLI) | payer MEDICARE, MEDICAID, SELFPAY ==
--- NOTE | 2024-12-22 14:22 | XRR_ITS ---
PROCEDURE INFORMATION: Exam: XR Left Hand Exam date and time: 12/22/2024 2:27 PM Age: 64 years old Clinical indication: Injury or trauma; Fall; Blunt trauma (contusions or hematomas); Injury date: 12/22/24; Injury details: Tripped over dog and fell on left hand, swelling and bruising around 5th, 4th and 3rd metacarpals and phalanges; Additional info: Pain in joints of left hand TECHNIQUE: Imaging protocol: Radiologic exam of the left hand. Views: 3 or more views. COMPARISON: CR XR hand LT min 3V* [id number] 10/22/2023 10:40 AM FINDINGS: Bones/joints: Acute displaced extra-articular fracture of the proximal phalanx ring finger. Radiocarpal articulation and carpal rows are grossly intact. Severe thumb carpometacarpal osteoarthritis. ORIF of the distal ulna noted. Incidental lunotriquetral coalition. Soft tissues: Soft tissue edema of the ring finger. XR/XR hand LT 2V [id number] IMPRESSION: 1. Acute displaced extra-articular fracture of the proximal phalanx ring finger.
== END 2024-12-22 14:12 | disposition home or self-care (01) ==
LOC: RAD 14:18
PROVIDERS: PCP Internal Medicine; Visit Provider Internal Medicine
DX: S62.615A Displaced fracture of proximal phalanx of left ring finger, initial encounter for closed fracture (principal); W19.XXXA Unspecified fall, initial encounter; M18.9 Osteoarthritis of first carpometacarpal joint, unspecified; Z98.890 Other specified postprocedural states; M25.832 Other specified joint disorders, left wrist
CPT/HCPCS: 73120

== ENCOUNTER → 2024-12-25 14:40 | Outpatient (BNVA) | payer MEDICARE, MEDICAID, SELFPAY | PROVIDERS: PCP Internal Medicine; Referring Provider Internal Medicine; Visit Provider Orthopaedic Surgery | DX: S62.602A Fracture of unspecified phalanx of right middle finger, initial encounter for closed fracture (principal); X58.XXXA Exposure to other specified factors, initial encounter | CPT/HCPCS: 73130; 99203 ==

== ENCOUNTER 2025-01-17 20:16 | Emergency (ER) | payer MEDICARE, SELFPAY ==
--- NOTE | 2025-01-17 20:18 | XRR_ITS ---
PROCEDURE INFORMATION: Exam: XR Left Hand Exam date and time: 01/17/2025 8:47 PM Age: 64 years old Clinical indication: Finger(s); Patient sustained fracture of left 4th digit on 01/07/2025. C/O worsening pain. ; Additional info: Injury TECHNIQUE: Imaging protocol: Radiologic exam of the left hand. Views: 3 or more views. COMPARISON: CR XR hand LT 2V [id number] 12/22/2024 2:27 PM FINDINGS: Bones/joints: Again seen is a moderately displaced comminuted fracture of the mid shaft of the 4th proximal phalanx without intra-articular extension. Fracture alignment appears unchanged. Minimal periosteal new bone formation. Fracture lines remain visible. No new fracture. No dislocation. Screw again seen in the distal ulna. Luminal triquetral coalition again noted. Soft tissues: Normal. XR/XR hand LT min 3V* [id number] IMPRESSION: Fourth proximal phalanx fracture with minimal evidence of healing. Unchanged alignment.
[2025-01-17 20:23] VITALS: BP 159/78; PULSE 63; RESP 17; TEMP 36.9; O2SAT 99; BMI 21.6
--- NOTE | 2025-01-17 20:49 | ED_ITS ---
HPI - Extremity Problem General: Chief complaint: Extremity Injury, Upper Stated complaint: left hand injury suddent increasing pain Time Seen by Provider: 01/17/25 20:36 Source: patient Mode of arrival: ambulatory Limitations: no limitations History of Present Illness: 64-year-old female who states that she h ad tripped over her dog a month ago injured her left ring finger did have a proximal phalanx fracture she has been in a splint is following with orthopedics but states she has not had any pain meds and she has had some increased pain no new injuries rates her pain a 7 out of 10 denies any fever. Associated symptoms: Deny chest pain, fever(s) or rash Related Data Home Medications ?Medication ?Instructions ?Recorded ?Confirmed levothyroxine 25 mcg capsule 25 mcg PO DAILY@0800 09/1012/25/24 montelukast 10 mg tablet 10 mg PO DAILY@0800 09/22/19 12/25/24 albuterol sulfate 90 mcg/actuation 2 puff inhalation Q ID PRN 02/13/20 12/25/24 aerosol inhaler (Ventolin HFA) Shortness Of Breath Or Wheezing pantoprazole 40 mg tablet,delayed 40 mg PO BID@0800,18 00 12/14/20 12/25/24 release rosuvastatin 20 mg tablet 20 mg PO DAILY@0800 12/14/20 12/25/24 cholecalciferol (vitamin D3) 25 1,000 unit PO TID 07/1112/25/24 mcg (1,000 unit) capsule tiotropium 2.5 mcg-olodaterol 2.5 2 puff inhalation .e very other day 07/26/23 12/25/24 mcg/actuation mist for inhalation (Stiolto Respimat) Previous Rx's ?Medication ?Instructions ?Recorded cock up splint #1 ea 12/21/21 Supinator to the Right #1 ea 03/01/22 Sole Supports #1 ea 03/28/22 Cam boot to right #1 ea 02/18/24 amitriptyline 50 mg tablet 50 mg PO .bedtime #90 tabs 02/27/24 CAM walker #1 ea 05/19/24 celecoxib 100 mg capsule 100 mg PO BID #60 caps 10/09 diclofenac sodium 1 % topical gel 4 g topical QID #100 grams 10/09/24 Cam Boot to the right #1 ea 12/18/24 hydrocodone 5 mg-acetaminophen 325 1 tab PO Q6H PRN pa in #14 tabs 01/17/25 mg tablet Allergies Allergy/AdvReac Type Severity Reaction Status Date / Time adhesive tape Allergy Intermediate ALGY-Rash Verified 12/25/24 14:42 Iodinated Contrast Media Allergy Mild itching Verified 12/25/24 14:42 Penicillins Allergy Mild hives Verified 12/25/24 14:42 Sulfa (Sulfonamide Allergy Mild hives Verified 12/25/24 14:42 Antibiotics) Review of Systems Const: Denies: fever(s), chills, body aches or change in appetite ENMT: Denies: throat pain or dental pain Card: Denies: chest pain Resp: Denies: dyspnea GI: Denies: abdominal pain, nausea, vomiting or diarrhea Musc: Reports: extremity pain; Denies: neck pain or back pain Skin/Breast: Denies: rash Neuro: Denies: headache(s) PFSH ED PFSH: Medical History Posterior tibial tendon dysfunction (PTTD) of right lower extremity Psychiatric care Displacement of lumbar intervertebral disc SHE WILL NOTIFY NEUROSURGERY CLINIC IF/WHEN SHE WISHES TO FOLLOW-UP Intervertebral disc disorder with radiculopathy of lumbosacral region Nicotine dependence, cigarettes, uncomplicated Generalized anxiety disorder Major depressive disorder, recurrent, in partial remission Hx of fracture of clavicle repair fx collar bone. Hx of rotator cuff tear surgery, left Cervical post-laminectomy syndrome (~07/04/16) Low back pain of over 3 months duration Surgical History History of shoulder surgery (~04/04/16) rotator cuff repair, right History of cholecystectomy History of hysterectomy (~1979) History of cervical spinal surgery (~07/04/16) Dr. Mujica, C5-C6 ACDFF Family History Mother Parkinson disease Father Myocardial infarction Social History Smoking and tobacco/nicotine status: current every day tobacco/nicotine user cigarettes Packs smoked per day: 1 Years cigarettes smoked: 41 [ Other cigarette details: started at age 21] Alcohol intake: never Substance/Drug Use: never Household members: spouse Marital status: Current occupational status: unemployed and retired Physical Exam Const: COMMON NORMALS: no acute distress, patient oriented x3 and healthy appearing HENMT: COMMON NORMALS: normocephalic and atraumatic HEAD & SCALP: normocephalic and atraumatic Eye: COMMON NORMALS: conjunctivae normal CONJUNCTIVA: Yes conjunctivae normal Chest: COMMONS NORMALS: normal inspection of the chest Resp: COMMON NORMALS: normal respiratory effort Cardio: COMMON NORMALS: regular rate RATE: regular rate Extremity: OTHER: Tenderness noted at left ring finger no obvious deformity no redness Neuro: COMMON NORMALS: patient oriented x3, moves all extremities and no focal motor deficits Psych: COMMON NORMALS: mental status grossly normal, Normal thought process present and cooperative THOUGHT PROCESS: Normal thought process present Skin: COMMON NORMALS: no rashes or lesions noted and no wounds GENERAL SKIN EXAM: no rashes or lesions noted Course Vital Signs: Vital signs: Vital Signs Temperature 98.4 F 01/17/25 20:23 Pulse Rate 63 01/17/25 20:23 Respiratory Rate 17 01/17/25 20:23 Blood Pressure 159/78 01/17/25 20:23 Pulse Oximetry 99 01/17/25 20:23 Oxygen Delivery Me thod Room Air 01/17/25 20:23 MDM - Extremity (Nontraumatic) Medical Decision Making Patient presents here with ring finger fracture with pain we will place her on pain meds she is to follow-up with orthopedics return if worsening All radiology interpretation(s) finalized by discharge Discharge Plan Discharge Patient Disposition: Home Clinical Impression: Closed fracture of phalanx of left ring finger Qualifiers: Encounter type: subsequent encounter Phalanx: proximal Fracture alignment: nondisplaced Condition: Stable Prescriptions: New hydrocodone-acetaminophen 5-325 mg tablet 1 tab PO Q6H PRN (Reason: pain) Qty: 14 0RF No Action montelukast 10 mg tablet 10 mg PO DAILY@0800 levothyroxine 25 mcg capsule 25 mcg PO DAILY@0800 cholecalciferol (vitamin D3) 25 mcg (1,000 unit) capsule 1,000 unit PO TID (DME) cock up splint See Rx Instructions .Route .MEDSUPPLY Qty: 1 0RF Rx Instructions: As directed (DME) Sole Supports See Rx Instructions .Route .MEDSUPPLY Qty: 1 0RF Rx Instructions: As directed (DME) Cam Boot to the right See Rx Instructions .Route .MEDSUPPLY Qty: 1 0RF Rx Instructions: As directed Length of need 1 year (DME) Supinator to the Right See Rx Instructions .Route .MEDSUPPLY Qty: 1 0RF Rx Instructions: As directed Stiolto Respimat 2.5-2.5 mcg/actuation mist 2 puff inhalation .every other day amitriptyline 50 mg tablet 50 mg PO .bedtime Qty: 90 2RF Rx Instructions: Take one tablet at bedtime (DME) CAM walker See Rx Instructions .Route .MEDSUPPLY Qty: 1 0RF Rx Instructions: As directed (DME) Cam boot to right See Rx Instructions .Route .MEDSUPPLY Qty: 1 0RF Rx Instructions: As directed diclofenac sodium 1 % gel 4 g topical QID Qty: 100 3RF Rx Instructions: apply to single knee, ankle, foot; for foot includes sole/toes/top of foot celecoxib 100 mg capsule 100 mg PO BID Qty: 60 2RF albuterol sulfate [Ventolin HFA] 90 mcg/actuation HFA aerosol inhaler 2 puff INHALATION QID PRN (Reason: Shortness Of Breath Or Wheezing) pantoprazole 40 mg tablet,delayed release (DR/EC) 40 mg PO BID@0800,1800 rosuvastatin 20 mg tablet 20 mg PO DAILY@0800 Discharge Orders: Discharge ED (Routine); Ordered 01/17/25 Ordered By: Evans Smith Referrals: Samantha Evans MD [Primary Care Provider, Internal Medicine] Stephan Dobson DO [Physician, Orthopedics] - 4-7 days Discharge Diet: Advance as tolerated Discharge Activity: Resume usual activity Patient Instructions: Finger Fracture (ED) Print Language: [place] Coding Level of Care Code ED 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
[2025-01-17] MEDS: HYDROcodone-acetaminophen 7.5-325 mg Tablet 1 TAB PO (21:16)
== END 2025-01-17 21:16 | disposition home or self-care (01) ==
PROVIDERS: Emergency Provider Emergency Medicine; PCP Internal Medicine
DX: S62.645D Nondisplaced fracture of proximal phalanx of left ring finger, subsequent encounter for fracture with routine healing (principal); X58.XXXD Exposure to other specified factors, subsequent encounter; F17.210 Nicotine dependence, cigarettes, uncomplicated
CPT/HCPCS: 73130; 99283; J9999

== ENCOUNTER → 2025-01-22 14:13 | Outpatient (BNVA) | payer MEDICARE, SELFPAY | PROVIDERS: PCP Internal Medicine; Visit Provider Orthopaedic Surgery | DX: S62.605A Fracture of unspecified phalanx of left ring finger, initial encounter for closed fracture (principal); X58.XXXA Exposure to other specified factors, initial encounter | CPT/HCPCS: 73130; 99213 ==

== ENCOUNTER → 2025-02-05 12:44 | Outpatient (BNVA) | payer MEDICARE, SELFPAY | PROVIDERS: PCP Internal Medicine; Visit Provider Orthopaedic Surgery | DX: S62.645D Nondisplaced fracture of proximal phalanx of left ring finger, subsequent encounter for fracture with routine healing (principal); X58.XXXD Exposure to other specified factors, subsequent encounter | CPT/HCPCS: 73130; 99213 ==

== ENCOUNTER 2025-02-13 20:38 | Emergency (ER) | payer MEDICARE, SELFPAY ==
[2025-02-13 20:48] VITALS: BP 142/78; PULSE 71; RESP 16; TEMP 36.7; O2SAT 98; BMI 21.6
--- NOTE | 2025-02-13 23:38 | W.ED.EXTPRO ---
HPI - Extremity Problem General: Chief complaint: Extremity Problem,Nontraumatic Stated complaint: painful knots on back of knee Time Seen by Provider: 02/13/25 23:31 History of Present Illness: Patient comes in with pain behind her left knee and swelling of her left lower extremity. States that been going on for the past 5 days. States she was seen by her primary care doctor who referred her to orthopedic surgery. States that they did an x-ray and it was normal. States the swelling and pain continued to worsen she was advised to be seen here. On physical exam her left lower extremity is swollen when compared to the right. She has mild swelling of her left knee. She has tenderness to palpation behind the left knee. Will check ultrasound, and reassess. Related Data Home Medications ?Medication ?Instructions ?Recorded ?Confirmed levothyroxine 25 mcg capsule 25 mcg PO DAILY@0800 09/22/19 02/05/25 montelukast 10 mg tablet 10 mg PO DAILY@0800 09/22/19 02/05/25 albuterol sulfate 90 mcg/actuation 2 puff inhalation QID PRN 02/13/20 02/05/25 aerosol inhaler (Ventolin HFA) Shortness Of Breath Or Wheezing pantoprazole 40 mg tablet,delayed 40 mg PO BID@0800,1800 12/14/20 02/05/25 release rosuvastatin 20 mg tablet 20 mg PO DAILY@0800 12/14/20 02/05/25 cholecalciferol (vitamin D3) 25 1,000 unit PO TID 07/27/21 02/05/25 mcg (1,000 unit) capsule tiotropium 2.5 mcg-olodaterol 2.5 2 puff inhalation .every other day 07/26/23 02/05/25 mcg/actuation mist for inhalation (Stiolto Respimat) Previous Rx's ?Medication ?Instructions ?Recorded cock up splint #1 ea 12/21/21 Supinator to the Right #1 ea 03/01/22 Sole Supports #1 ea 03/28/22 Cam boot to right #1 ea 02/18/24 amitriptyline 50 mg tablet 50 mg PO .bedtime #90 tabs 02/27/24 CAM walker #1 ea 05/19/24 celecoxib 100 mg capsule 100 mg PO BID #60 caps 10/09/24 diclofenac sodium 1 % topical gel 4 g topical QID #100 grams 10/09/24 Cam Boot to the right #1 ea 12/18/24 hydrocodone 5 mg-acetaminophen 325 1 tab PO Q6H PRN pain #14 tabs 01/17/25 mg tablet ibuprofen 800 mg tablet 800 mg PO Q8H PRN pain #30 tabs 01/25/25 Allergies Allergy/AdvReac Type Severity Reaction Status Date / Time adhesive tape Allergy Intermediate ALGY-Rash Verified 02/05/25 14:16 Iodinated Contrast Media Allergy Mild itching Verified 02/05/25 14:16 Penicillins Allergy Mild hives Verified 02/05/25 14:16 Sulfa (Sulfonamide Allergy Mild hives Verified 02/05/25 14:16 Antibiotics) Review of Systems Musc: Reports: other (Swelling and pain of the left knee and left lower leg) PFSH ED PFSH: Medical History Posterior tibial tendon dysfunction (PTTD) of right lower extremity Psychiatric care Displacement of lumbar intervertebral disc SHE WILL NOTIFY NEUROSURGERY CLINIC IF/WHEN SHE WISHES TO FOLLOW-UP Intervertebral disc disorder with radiculopathy of lumbosacral region Nicotine dependence, cigarettes, uncomplicated Generalized anxiety disorder Major depressive disorder, recurrent, in partial remission Hx of fracture of clavicle repair fx collar bone. Hx of rotator cuff tear surgery, left Cervical post-laminectomy syndrome (~07/04/16) Low back pain of over 3 months duration Surgical History History of shoulder surgery (~04/04/16) rotator cuff repair, right History of cholecystectomy History of hysterectomy (~1979) History of cervical spinal surgery (~07/04/16) Dr. Mujica, C5-C6 ACDFF Family History Mother Parkinson disease Father Myocardial infarction Social History Smoking and tobacco/nicotine status: unknown if used tobacco/nicotine Alcohol intake: never Substance/Drug Use: never Household members: spouse Marital status: Current occupational status: unemployed and retired Physical Exam Const: COMMON NORMALS: no acute distress and healthy appearing Neck/C-Spine: COMMON NORMALS: supple Resp: COMMON NORMALS: normal respiratory effort, No retractions and No use of accessory muscles Extremity: NARRATIVE EXTREMITY EXAM: Tenderness to palpation behind the left knee, swelling of the left lower extremity when compared to the right Course Vital Signs: Vital signs: Vital Signs Temperature 98.0 F 02/13/25 20:48 Pulse Rate 61 02/14/25 00:37 Respiratory Rate 16 02/13/25 20:48 Blood Pressure 148/82 02/14/25 00:37 Pulse Oximetry 100 02/14/25 00:37 Oxygen Delivery Me thod Room Air 02/13/25 20:48 MDM - Extremity (Nontraumatic) Medical Decision Making On reassessment I talked to the patient about her test results. Her ultrasound shows a Jimenes's cyst with possible mild rupture. I encouraged her to continue anti-inflammatories, elevation, and follow-up with orthopedic surgery. Will discharge at this time with precautions to return for worsening or changing symptoms. Lab Data Radiology Impressions Venous Duplex 02/14/25 00:56 IMPRESSION: 1. No evidence of deep vein thrombosis. 2. Small Jimenes's cyst All radiology interpretation(s) finalized by discharge Discharge Plan Discharge Patient Disposition: Home Clinical Impression: Jimenes's cyst of knee Condition: Stable Prescriptions: No Action montelukast 10 mg tablet 10 mg PO DAILY@0800 levothyroxine 25 mcg capsule 25 mcg PO DAILY@0800 cholecalciferol (vitamin D3) 25 mcg (1,000 unit) capsule 1,000 unit PO TID (DME) cock up splint See Rx Instructions .Route .MEDSUPPLY Qty: 1 0RF Rx Instructions: As directed (DME) Sole Supports See Rx Instructions .Route .MEDSUPPLY Qty: 1 0RF Rx Instructions: As directed (DME) Cam Boot to the right See Rx Instructions .Route .MEDSUPPLY Qty: 1 0RF Rx Instructions: As directed Length of need 1 year ibuprofen 800 mg tablet 800 mg PO Q8H PRN (Reason: pain) Qty: 30 0RF (DME) Supinator to the Right See Rx Instructions .Route .MEDSUPPLY Qty: 1 0RF Rx Instructions: As directed Stiolto Respimat 2.5-2.5 mcg/actuation mist 2 puff inhalation .every other day amitriptyline 50 mg tablet 50 mg PO .bedtime Qty: 90 2RF Rx Instructions: Take one tablet at bedtime (DME) CAM walker See Rx Instructions .Route .MEDSUPPLY Qty: 1 0RF Rx Instructions: As directed (DME) Cam boot to right See Rx Instructions .Route .MEDSUPPLY Qty: 1 0RF Rx Instructions: As directed diclofenac sodium 1 % gel 4 g topical QID Qty: 100 3RF Rx Instructions: apply to single knee, ankle, foot; for foot includes sole/toes/top of foot celecoxib 100 mg capsule 100 mg PO BID Qty: 60 2RF albuterol sulfate [Ventolin HFA] 90 mcg/actuation HFA aerosol inhaler 2 puff INHALATION QID PRN (Reason: Shortness Of Breath Or Wheezing) pantoprazole 40 mg tablet,delayed release (DR/EC) 40 mg PO BID@0800,1800 rosuvastatin 20 mg tablet 20 mg PO DAILY@0800 hydrocodone-acetaminophen 5-325 mg tablet 1 tab PO Q6H PRN (Reason: pain) Qty: 14 0RF Discharge Orders: Discharge ED (Routine); Ordered 02/14/25 Ordered By: Lázaro Payne Referrals: Samantha Evans MD [Primary Care Provider, Internal Medicine] Patient Instructions: Jimenes Cyst (ED), Pain Management Print Language: Maori Coding Level of Care Code ED Compressor Operator for Aileen Anderson
[2025-02-14 00:37] VITALS: BP 148/82; PULSE 61; O2SAT 100
--- NOTE | 2025-02-14 00:56 | USR_ITS ---
PROCEDURE INFORMATION: Exam: US Duplex Left Lower Extremity Veins, Limited Exam date and time: 02/14/2025 1:05 AM Age: 64 years old Clinical indication: Pain; Leg, upper and leg, lower; Left; Additional info: Swelling and pain TECHNIQUE: Imaging protocol: Real-time duplex ultrasound of the left extremity with 2-D ontiveros scale, color Doppler flow and spectral waveform analysis including responses to compression and other maneuvers (when performed) with image documentation. Limited exam focused on the left lower extremity veins. COMPARISON: MR knee LT wo con* [id number] 11/23/2020 4:39 PM FINDINGS: Left deep veins: Unremarkable. The common femoral, femoral, proximal profunda femoral and popliteal veins are patent without thrombus. Normal Doppler waveforms. Normal compressibility and/or augmentation response. Superficial veins: Greater saphenous vein at the saphenofemoral junction is patent without thrombus. Soft tissues: There is a small 1 x 2 x 1 cm sized Jimenes cyst in the left popliteal fossa. US/CV venous duplex [facility] [id number] IMPRESSION: 1. No evidence of deep vein thrombosis. 2. Small Jimenes's cyst
[2025-02-14 02:19] VITALS: BP 159/85; PULSE 57; O2SAT 96
== END 2025-02-14 02:25 | disposition home or self-care (01) ==
PROVIDERS: Emergency Provider Emergency Medicine; PCP Internal Medicine
DX: M71.22 Synovial cyst of popliteal space [Baker], left knee (principal)
CPT/HCPCS: 93971; 99284

== ENCOUNTER → 2025-02-17 13:58 | Outpatient (BNVA) | payer MEDICARE, SELFPAY | PROVIDERS: PCP Internal Medicine; Visit Provider Podiatrist Foot & Ankle Surgery | DX: L85.1 Acquired keratosis [keratoderma] palmaris et plantaris (principal); L84 Corns and callosities | CPT/HCPCS: 17110 ==

== ENCOUNTER 2025-02-26 16:36 | Emergency (ER) | payer OTHER, MEDICARE, SELFPAY ==
[2025-02-26 16:39] VITALS: BP 148/83; PULSE 87; RESP 26; TEMP 37.1; O2SAT 99
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
[2025-02-26 17:53] VITALS: BP 148/89; PULSE 76; RESP 18; O2SAT 95
[2025-02-26 18:02] VITALS: BP 150/104; PULSE 78; RESP 17; O2SAT 98
[2025-02-26 18:18] VITALS: BP 150/104; PULSE 79; RESP 16; O2SAT 96
== END 2025-02-26 18:19 | disposition home or self-care (01) ==
PROVIDERS: Emergency Provider Student in an Organized Health Care Education/Training Program; PCP Internal Medicine
DX: S16.1XXA Strain of muscle, fascia and tendon at neck level, initial encounter (principal); S40.012A Contusion of left shoulder, initial encounter; S29.012A Strain of muscle and tendon of back wall of thorax, initial encounter; V89.2XXA Person injured in unspecified motor-vehicle accident, traffic, initial encounter
CPT/HCPCS: 72125; 72128; 73030; 99284

== ENCOUNTER → 2025-03-02 16:17 | Outpatient (BNVA) | payer MEDICARE, SELFPAY | PROVIDERS: PCP Internal Medicine; Visit Provider Nurse Practitioner | DX: M17.12 Unilateral primary osteoarthritis, left knee (principal) | CPT/HCPCS: 73560; 73565; 99214 ==

== ENCOUNTER 2025-03-05 13:58 | Outpatient (CLI) | payer MEDICARE, SELFPAY ==
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
== END 2025-03-05 13:59 | disposition home or self-care (01) ==
LOC: RAD 14:00
PROVIDERS: PCP Internal Medicine; Visit Provider Nurse Practitioner
DX: M17.12 Unilateral primary osteoarthritis, left knee (principal); S62.615A Displaced fracture of proximal phalanx of left ring finger, initial encounter for closed fracture; X58.XXXA Exposure to other specified factors, initial encounter; R93.6 Abnormal findings on diagnostic imaging of limbs; M22.42 Chondromalacia patellae, left knee; M19.042 Primary osteoarthritis, left hand
CPT/HCPCS: 73130; 73721; 99214

== ENCOUNTER → 2025-03-23 13:51 | Outpatient (BNVA) | payer MEDICARE, SELFPAY | PROVIDERS: PCP Internal Medicine; Visit Provider Nurse Practitioner | DX: M17.12 Unilateral primary osteoarthritis, left knee (principal); S76.112D Strain of left quadriceps muscle, fascia and tendon, subsequent encounter; V89.2XXD Person injured in unspecified motor-vehicle accident, traffic, subsequent encounter | CPT/HCPCS: 99214 ==

== ENCOUNTER → 2025-05-20 11:23 | Outpatient (BNVA) | payer MEDICARE, SELFPAY | PROVIDERS: PCP Internal Medicine; Visit Provider Podiatrist Foot & Ankle Surgery | DX: L85.1 Acquired keratosis [keratoderma] palmaris et plantaris (principal); M79.672 Pain in left foot | CPT/HCPCS: 17110 ==

== ENCOUNTER → 2025-05-29 10:08 | Outpatient (BNVA) | payer MEDICARE, SELFPAY | PROVIDERS: PCP Internal Medicine; Visit Provider Nurse Practitioner | DX: M17.12 Unilateral primary osteoarthritis, left knee (principal); S76.112D Strain of left quadriceps muscle, fascia and tendon, subsequent encounter; V89.2XXD Person injured in unspecified motor-vehicle accident, traffic, subsequent encounter | CPT/HCPCS: 99214 ==

== ENCOUNTER → 2025-06-12 09:59 | Outpatient (BNVA) | payer MEDICARE, SELFPAY | PROVIDERS: PCP Internal Medicine; Visit Provider Nurse Practitioner | DX: M17.12 Unilateral primary osteoarthritis, left knee (principal); S89.92XA Unspecified injury of left lower leg, initial encounter; W19.XXXA Unspecified fall, initial encounter | CPT/HCPCS: 73560; 73565; 99214 ==

== ENCOUNTER 2025-06-24 13:11 | Outpatient (CLI) | payer MEDICARE, SELFPAY ==
--- NOTE | 2025-06-24 14:15 | CT_ITS ---
WS: [id number] CT LEFT knee, noncontrast HISTORY: knee pain TECHNIQUE: Protocol for [facility] total knee replacement has been obtained. This includes axial imaging through the LEFT hip, LEFT knee and LEFT ankle. DLP: 981.34 mGy.cm COMPARISON: Radiograph 06/12/2025 LEFT hip: Normal. No soft tissue mass. No bone destruction. Mild sigmoid diverticulosis. LEFT knee: Mild lateral subluxation of the patella. Very minimal joint space narrowing. No osteophytosis. No significant joint effusion. There is a tiny Jimenes's cyst. LEFT ankle: Negative. CT/CT knee LT [facility] [id number] IMPRESSION: CT imaging provided for [facility] robotic total knee replacement.
[2025-06-24 14:49] LABS: Hematocrit 37.5 % (36-47); Hemoglobin 12.30 g/dL (11.27-16.99); Mean Corpuscular HGB Conc 32.8 g/dL (30-55); Mean Corpuscular Hemoglobin 29.6 pg (27-33); Mean Corpuscular Volume 90.4 fl (85-98); Nucleated Red Blood Cells % 0 %; Platelet Count 344 10^3/cmm (157-399); Red Blood Count 4.15 10^6/uL (3.85-5.65); White Blood Count 9.07 10^3/uL (3.29-11.43)
[2025-06-24 14:53] LABS: Glucose Urine UA Negative (Normal); Nitrate Urine Negative (Negative); Specific Gravity, Urine 1.009 (1.005-1.030)
[2025-06-24 14:58] LABS: Add Urine Microscopic? YES
[2025-06-24 15:03] LABS: Alanine Aminotransferase 14 U/L (0-33); Albumin Level 3.9 g/dL (3.5-5.2); Alkaline Phosphatase 116 U/L (35-105); Anion Gap 13.8 (5-19); Aspartate Amino Transferase 13 U/L (0-32); Blood Urea Nitrogen 17 mg/dL (8-23); Calcium 9.1 mg/dL (8.5-10.5); Carbon Dioxide 24 mmol/L (22-29); Chloride 107 mmol/L (98-107); Globulin 2.8 g/dL (1.3-4.6); Glucose 101 mg/dL (65-115); Osmolality Calculated 294 mOsm/kg (285-295); Potassium 3.8 mmol/L (3.5-5.1); Sodium 141 mmol/L (136-145); Total Protein 6.7 g/dL (6.6-8.7)
[2025-06-24 16:23] LABS: PCP Screen Urine Negative (Negative)
== END 2025-06-24 13:12 | disposition home or self-care (01) ==
LOC: RAD 13:13
PROVIDERS: PCP Internal Medicine; Visit Provider Nurse Practitioner
DX: Z01.818 Encounter for other preprocedural examination (principal); S83.012A Lateral subluxation of left patella, initial encounter; X58.XXXA Exposure to other specified factors, initial encounter; M71.22 Synovial cyst of popliteal space [Baker], left knee
CPT/HCPCS: 36415; 73700; 80053; 80306; 81001; 85025; 87086

== ENCOUNTER → 2025-06-29 09:14 | Outpatient (BNVA) | payer MEDICARE, SELFPAY | PROVIDERS: PCP Internal Medicine; Visit Provider Nurse Practitioner | DX: M17.12 Unilateral primary osteoarthritis, left knee (principal); F17.210 Nicotine dependence, cigarettes, uncomplicated | CPT/HCPCS: 99214 ==

== ENCOUNTER → 2025-07-22 10:54 | Outpatient (BNVA) | payer MEDICARE, SELFPAY | PROVIDERS: PCP Internal Medicine; Visit Provider Podiatrist Foot & Ankle Surgery | DX: L85.1 Acquired keratosis [keratoderma] palmaris et plantaris (principal); L84 Corns and callosities; M79.672 Pain in left foot | CPT/HCPCS: 17110 ==

== ENCOUNTER 2025-07-24 16:34 | Emergency (ER) | payer MEDICARE, SELFPAY ==
[2025-07-24 16:39] VITALS: BP 145/79; PULSE 71; RESP 18; TEMP 36.6; O2SAT 99; BMI 22.3
--- OUTSIDE RECORDS SUMMARY | 2025-07-24 17:17 | XMS_ITS | Clinical Summary ---
Author Organization [facility] Address [address] [place] [address] Care Team Providers Care Editorial Writer Name Role Phone Nori DO THOMAS Gus Hernandez Primary Care Provider Allergies Active Allergy Reactions Criticality Noted Date Comments Penicillins Rash Low 06/23/2013 Sulfa (Sulfonamide Antibiotics) Rash Low 06/10 Medications traMADol (ULTRAM) 50 mg Oral tabletIndicati ons:Peripheral neuropathy,Robert n in joint, lower leg Take 50 mg by mouth 2 times daily. 2 tablets BID Active ARIPIPRAZOLE (ABILIFY ORAL)Indicatio ns:Peripheral neuropathy,Robert n in joint, lower leg Take 25 mg by mouth. Active mirtazapine (REMERON) 15 mg Oral tabletIndicati ons:Peripheral neuropathy,Robert n in joint, lower leg Take 15 mg by mouth daily at bedtime. Active rOPINIRole (REQUIP) 1 mg Oral tabletIndicati ons:Peripheral neuropathy,Robert n in joint, lower leg Take 1 mg by mouth. As directed Active POTASSIUM CHLORIDE ORALIndication s:Peripheral neuropathy,Robert n in joint, lower leg Take 2.5 mg by mouth. As directed Active lisinopril (PRINIVIL) 2.5 mg Oral tabletIndicati ons:Peripheral neuropathy,Robert n in joint, lower leg Take 2.5 mg by mouth daily. Active traZODone (DESYREL) 50 mg Oral tabletIndicati ons:Peripheral neuropathy,Robert n in joint, lower leg Take 50 mg by mouth daily at bedtime. Active SUMAtriptan (IMITREX) 100 mg Oral tabletIndicati ons:Peripheral neuropathy,Robert n in joint, lower leg Take 100 mg by mouth see administration instructions. may repeat in 2 hours; max dose 200mg in 24 hours Active HYDROcodone-ac etaminophen (NORCO) 5-325 mg Oral tabletIndicati ons:Peripheral neuropathy,Robert n in joint, lower leg Take 1 Tab by mouth. As directed Active gabapentin (NEURONTIN) 300 mg capsuleIndicat ions:Periphera l neuropathy,Robert n in joint, lower leg Take 1 Cap by mouth 4 times daily. 120 Cap 2 4 Active Active Problems Problem Noted Date Diagnosed Date CRPS (complex regional pain syndrome type I) Immunizations Immunization Administration Dates Next Due (TDVAX)(7 YRS UP) TETANUS AN D DIPHTHERIA TOXOIDS, ADSORBED (2 LF OF TETANUS TOXOID AND 2 LF OF DIPHTHERIA TOXOID), 0.5ML (PF), IM 05/07/2009,03/26/2006,08/14/2003 Family History Medical History Relation Name Comments Diabetes Sister Relation Name Status Comments Sister Social History Tobacco Use Types Packs/Day Years Used Date Smoking Tobacco: Every Day Cigarettes 1.5 4 Smokeless Tobacco: Never Alcohol Use Standard Drinks/Week Comments No 0 (1 standard drink = 0.6 oz pur e alcohol) Comments No Sex and Gender Information Value Date Recorded Sex Assigned at Not on file Legal Sex Female 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 Gender Identity Not on file Sexual Orientation Not on file Occupation Industry Job Start Date Job End Date Not on file Not on file Not on file Not on file Last Filed Vital Signs Vital Sign Reading Time Taken Comments Blood Pressure 120/80 11/26/2013 8:23 AM CDT Pulse 74 10/21/2013 10:39 AM SALES SERVICE PROFESSIONAL Temperature 36.3 C (97.4 F) 10/21/2013 9:33 AM SALES SERVICE PROFESSIONAL Respiratory Rate 18 10/21/2013 10:39 AM SALES SERVICE PROFESSIONAL Oxygen Saturation 100% 10/21/2013 10:39 AM SALES SERVICE PROFESSIONAL Inhaled Oxygen Concentration - - Weight 77.1 kg (170 lb) 11/26/2013 8:23 AM CDT Height 162.6 cm (5' 4 ) 11/26/2013 8:23 AM CDT Body Mass Index 29.18 11/26/2013 8:23 AM CDT Plan of Treatment Health Maintenance Due Date Last Done Comments HPV/Cotest (-) 1982 CERVICAL CANCER SCREENING 1991 HPV/Cotest (30-65) 1991 PAP SMEAR 1991 BREAST CANCER SCREENING 2001 COLORECTAL SCREENING 2006 Colorectal Cancer Screening 2006 FIT-DNA Q 3 years 2006 FIT/FOBT Q 1 year 2006 Flex Sig/CT Colonography Q 5 years 2006 DTAP/TDAP/TD VACCINES (1 - Tdap) 05/08/2009 05/07/2009, 03/26/2006, 08/14/2003 ZOSTER VACCINE (1 of 2) 2011 INFLUENZA VACCINE (#1) 2025 RSV VACCINE (60+ or ) (1 - 1-dose 75+ series) 2036 Insurance [facility] [id number] [facility] [place] Care Teams Editorial Writer Relationship Specialty Start Date End Date Gus Julio III, DO [address] [place] [phone] PCP - General Family Practice 10/08/13
--- OUTSIDE RECORDS SUMMARY | 2025-07-24 17:17 | XMS_ITS | Encounter Summary ---
Author Organization [facility] Address [address] [place] [address] Care Team Providers Care Managing Attorney Name Role Phone Nori GUZMAN DO, John Robert Primary Care Provider Encounter Details Date Type Department Care Team (Late st Contact Info) Description 07/21/2025 External Device Data [facility] ABSTRACTION Provider, Abstract NO ADDRESS ON FILE Social History Tobacco Use Types Packs/Day Years Used Date Smoking Tobacco: Every Day Cigarettes Smokeless Tobacco: Never Alcohol Use Standard Drinks/Week Comments No 0 (1 standard drink = 0.6 oz pur e alcohol) Comments Unknown Sex and Gender Information Value Date Recorded Sex Assigned at Not on file Legal Sex Female 4:48 AM RN PAIN MANAGEMENT Gender Identity Not on file Sexual Orientation Not on file documented as of this encounter Plan of Treatment Not on file documented as of this encounter Visit Diagnoses Not on filedocumented in this encounter Care Teams Managing Attorney Relationship Specialty Start Date End Date Gus Julio III, DO [address] [place] [phone] PCP - General Family Practice 10/08/13 documented as of this encounter
--- OUTSIDE RECORDS SUMMARY | 2025-07-24 17:17 | XMS_ITS | Encounter Summary ---
Author Organization [facility] Address [address] [place] [address] Care Team Providers Care Curtain Hemmer Automatic Name Role Phone Nori GUZMAN DO, John [...] on file Legal Sex Female 4:48 AM COIN ROLLING MACHINE OPERATOR Gender Identity Not on file Sexual Orientation Not on file documented as of this encounter Plan of Treatment Not on file documented as of this encounter Visit Diagnoses Not on filedocumented in this encounter Care Teams Curtain Hemmer Automatic Relationship Specialty Start Date End Date Gus Julio III, DO [address] [place] [phone] PCP - General Family Practice 10/08/13 documented as of this encounter
--- OUTSIDE RECORDS SUMMARY | 2025-07-24 17:17 | XMS_ITS ---
Laboratory report Created on: July 24, 2025 MISHA KURTZ : 1960 Sex: Female Author Name GAURAV BENITO Organization Unknown PROBLEMS Problems List Code Description M25.562 RESULTS Laboratory Orders Date Order Code Test 2025-07-21 [id number] PROTHROMBIN TIME (PT) Laboratory Results Date LOINC Test Value Unit Reference Range Interpre tation 2025-07-21 [id number] INR 1 0.9-1.2 2025-07-21 [id number] PROTHROMBIN TIME 10.7 SEC 9.1-12.0
--- OUTSIDE RECORDS SUMMARY | 2025-07-24 17:17 | XMS_ITS | Encounter Summary ---
Author Organization [facility] Address 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
--- OUTSIDE RECORDS SUMMARY | 2025-07-24 17:18 | XMS_ITS | Encounter Summary ---
Author Organization [facility] Address [address] [place] [address] Attn: [place] [address] Care Team Providers Care Construction Recruiter Name Role Phone Nori GUZMAN DO, John Robert Primary Care Provider Encounter Details Date Type Department Care Team (Latest Contact Info) Description 05/14/2002 Emergency Nicola Faria MD [address] [place], [place] [address] Social History Tobacco Use Types Packs/Day Years Used Date Smoking Tobacco: Never Assessed Comments Unknown Sex and Gender Information Value Date Recorded Sex Assigned at Not on file Legal Sex Female 5:49 AM MANAGER UTILIZATION REVIEW Gender Identity Not on file Sexual Orientation Not on file documented as of this encounter Plan of Treatment Not on file documented as of this encounter Visit Diagnoses Not on filedocumented in this encounter Care Teams Construction Recruiter Relationship Specialty Start Date End Date Gus Julio III, DO [address] [place] [phone] PCP - General Family Practice 10/08/13 documented as of this encounter
--- OUTSIDE RECORDS SUMMARY | 2025-07-24 17:18 | XMS_ITS | Clinical Summary ---
Author Organization [facility] Address [address] [facility] Attn: [place] [address] Care Team Providers Care Screener Operator Name Role Phone Smart III, DO, Gus Hernandez Primary Care Provider Allergies Active Allergy Reactions Criticality Noted Date Comments Iodine Rash Low 03/30/2017 Penicillins Rash Low 06/23/2013 Sulfa (Sulfonamide Antibiotics) Rash Low 06/10 Medications albuterol (PROVENTIL,PEARL KILO) 2.5 mg /3 mL (0.083 %) Solution for Nebulization Take 2.5 mg by inhalation Continuous as needed. 02/07/20 23 Active ibuprofen (MOTRIN) 800 mg tablet Take 800 mg by mouth every 8 hours as needed for Pain. 01/26/20 25 Active levothyroxine 25 mcg tablet Take 25 mcg by mouth daily in the morning. 02/18/20 24 Active lisinopriL (PRINIVIL) 2.5 mg tablet Take 2.5 mg by mouth daily. Active meloxicam (MOBIC) 7.5 mg tablet Take 7.5 mg by mouth daily. 05/30/20 24 Active naproxen (Naprosyn) 500 mg tablet Take 500 mg by mouth 2 times daily with meals. 09/11/19 25 Active omeprazole (PriLOSEC) 40 mg Capsule, Delayed Release(E.C.) Take 40 mg by mouth daily. 03/25/20 24 Active rosuvastatin (Crestor) 40 mg tablet Take 40 mg by mouth daily. 06/27/20 22 Active traZODone (DESYREL) 50 mg tablet Take 50 mg by mouth daily at bedtime. Active SUMAtriptan (IMITREX) 100 mg tablet Take 100 mg by mouth see administration instructions. Active tiotropium (Spiriva Respimat) 2.5 mcg/actuation Mist Take 2 Puffs by inhalation daily. 10/31/19 22 Active mirtazapine (REMERON) 15 mg tablet Take 15 mg by mouth daily at bedtime. Active fluticasone-umec lidinium-vilante rol (Trelegy Ellipta) 100-62.5-25 mcg Disk with Device Take 1 Puff by inhalation daily. 02/07/20 23 Active buPROPion HCL (Wellbutrin XL) 150 mg Extended Release 24 hour tablet Take 150 mg by mouth daily in the morning. 06/27/20 22 Active Flonase Allergy Relief 50 mcg/actuation Ookala, Suspension nasal inhaler Administer 1 Ookala in each nostril daily. 10/30/19 24 Active Active Problems Problem Noted Date Diagnosed Date CRPS (complex regional pain syndrome type I) Encounters Date Type Department Care Team Description 07/21/2025 External Device Data ST[facility] ABSTRACTION Provider, Abstract 07/21/2025 External Device Data [facility] ABSTRACTION Provider, Abstract 07/21/2025 External Device Data [facility] ABSTRACTION Provider, Abstract 07/08/2025 External Device Data [facility] ABSTRACTION Provider, Abstract 07/07/2025 External Device Data [facility] ABSTRACTION Provider, Abstract 06/30/2025 External Device Data [facility] ABSTRACTION Provider, Abstract 05/26/2025 External Device Data [facility] ABSTRACTION Provider, Abstract 04/23/2025 12:45 PM CDT Office Visit [place] [address] [place] [address] María Elena Daniel MD Hand injury, left, initial encounter (Primary Dx) 04/23/2025 10:55 AM CDT Ancillary Procedure [place] [address] [place] [address] María Elena Daniel MD Hand injury, left, initial encounter from Last 3 Months Immunizations Immunization Administration Dates Next Due (TDVAX)(7 YRS UP) TETANUS AN D DIPHTHERIA TOXOIDS, ADSORBED (2 LF OF TETANUS TOXOID AND 2 LF OF DIPHTHERIA TOXOID), 0.5ML (PF), IM 05/07/2009,03/26/2006,08/14/2003 Family History Medical History Relation Name Comments Diabetes Sister Relation Name Status Comments Sister Social History Tobacco Use Types Packs/Day Years Used Date Smoking Tobacco: Every Day Cigarettes Smokeless Tobacco: Never Tobacco Cessation:Ready to Q uit: Not Asked; Counseling Given: Not Answered Alcohol Use Standard Drinks/Week Comments No 0 (1 standard drink = 0.6 oz pur e alcohol) Comments Unknown Sex and Gender Information Value Date Recorded Sex Assigned at Not on file 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 Sex Female 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 Gender Identity Not on file Sexual Orientation Not on file Last Filed Vital Signs Vital Sign Reading Time Taken Comments Blood Pressure 124/82 04/23/2025 12:35 PM CDT Pulse - - Temperature - - Respiratory Rate - - Oxygen Saturation - - Inhaled Oxygen Concentration - - Weight 64.1 kg (141 lb 6.4 oz) 04/23/2025 12:35 PM CDT Height 162.6 cm (5' 4 ) 04/23/2025 12:35 PM CDT Body Mass Index 24.27 04/23/2025 12:35 PM CDT Plan of Treatment Health Maintenance Due Date Last Done Comments HPV/Cotest (21-29) 1982 CERVICAL CANCER SCREENING 1991 HPV/Cotest (30-65) [...] ) (1 - 1-dose 75+ series) 2036 Procedures Procedure Name Priority Date/Time Associated Diagnosis Comments XR FINGER(S) LEFT Routine 04/23/2025 11: 01 AM CDT Hand injury, left, initial encounter from Last 3 Months Results * XR FINGER(S) LEFT (04/23/2025 11:01 AM CDT) Anatomical Region Laterality Modality Wrist / Hand Computed Radiogr aphy Narrative 05/18/2025 4:57 PM CDT X-ray shows malunion of the left ring finger proximal phalanx with some apex radial angulation but full bony consolidation us María Elena Daniel MD DIAGNOSTIC IMAGING ORDERABLE S Final Result from Last 3 Months Insurance [facility] Care Teams Screener Operator Relationship Specialty Start Date End Date Gus Julio III, DO [address] [place] [phone] PCP - General Family Practice 10/08/13
--- OUTSIDE RECORDS SUMMARY | 2025-07-24 17:18 | XMS_ITS | Encounter Summary ---
Author Organization [facility] Address [address] [place] [address] Care Team Providers Care Embossing Press Operator Apprentice Name Role Phone Nori GUZMAN DO, John Robert Primary Care Provider Encounter Details Date Type Department Care Team (Latest Contact Info) Description 03/08/2005 Outpatient Historical [facility] [place] [facility] Ezequiel Hubbard [address] [place] [address] Corby Neri MD NO ADDRESS ON FILE ASTHMA UNSPECIFIED (Primary Dx) Social History Tobacco Use Types Packs/Day Years Used Date Smoking Tobacco: Never Assessed Comments Unknown Sex and Gender Information Value Date Recorded Sex Assigned at Not on file Legal Sex Female 5:49 AM RECORD PRODUCER Gender Identity Not on file Sexual Orientation Not on file documented as of this encounter Plan of Treatment Not on file documented as of this encounter Visit Diagnoses Diagnosis Unspecified asthma(493.90)- Primary Unspecified asthma documented in this encounter Care Teams Embossing Press Operator Apprentice Relationship Specialty Start Date End Date Gus Julio III, DO [address] [place] [phone] PCP - General Family Practice 10/08/13 documented as of this encounter
--- OUTSIDE RECORDS SUMMARY | 2025-07-24 17:18 | XMS_ITS | Encounter Summary ---
Author Organization [facility] Address [address] [place] [address] Care Team Providers Care Tool Room Machinist Name Role Phone Nori GUZMAN DO, John Robert Primary Care Provider Encounter Details Date Type Department Care Team (Latest Contact Info) Description 03/08/2005 Outpatient Historical [facility] [address] [place] [phone] Corby Neri MD NO ADDRESS ON FILE ASTHMA UNSPECIFIED (Primary Dx) Social History Tobacco Use Types Packs/Day Years Used Date Smoking Tobacco: Never Assessed Comments Unknown Sex and Gender Information Value Date Recorded Sex Assigned at Not on file Legal Sex Female 5:49 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
--- OUTSIDE RECORDS SUMMARY | 2025-07-24 17:18 | XMS_ITS | Encounter Summary ---
Author Organization [facility] Address [address] [place] [address] Care Team Providers Care Clerical And Office Support Workers Name Role Phone Nori GUZMAN DO, John Robert Primary Care Provider Encounter Details Date Type Department Care Team (Late st Contact Info) Description 08/19/2004 Inpatient Historical [facility] Yariel Smith MD [address] [facility] [address] [place] [address] FX C2 VERTEBRA-CLOSED ([facility]) (Primary Dx) Social History Tobacco Use Types Packs/Day Years Used Date Smoking Tobacco: Never Assessed Comments Unknown Sex and Gender Information Value Date Recorded Sex Assigned at Not on file Legal Sex Female 5:49 AM 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
--- OUTSIDE RECORDS SUMMARY | 2025-07-24 17:18 | XMS_ITS | Encounter Summary ---
Author Organization [facility] Address [address] [place] [address] Care Team Providers Care Food Counter Attendant Name Role Phone Nori GUZMAN DO, John Robert Primary Care Provider Encounter Details Date Type Department Care Team (Latest Contact Info) Description 06/11/2002 Outpatient Historical [facility] Tanner Balderas MD NO ADDRESS ON FILE FX CLAVICLE SHAFT-CLOSED (Primary Dx) Social History Tobacco Use Types Packs/Day Years Used Date Smoking Tobacco: Never Assessed Comments Unknown Sex and Gender Information Value Date Recorded Sex Assigned at Not on file Legal Sex Female 5:49 AM SPEED OPERATOR Gender Identity Not on file Sexual Orientation Not on file documented as of this encounter Plan of Treatment Not on file documented as of this encounter Visit Diagnoses Diagnosis Closed fracture of shaft of clavicle- Primary documented in this encounter Care Teams Food Counter Attendant Relationship Specialty Start Date End Date Gus Julio III, DO [address] [place] [phone] PCP - General Family Practice 10/08/13 documented as of this encounter
--- NOTE | 2025-07-24 18:40 | CTR_ITS ---
PROCEDURE INFORMATION: Exam: CT Head Without Contrast Exam date and time: 07/24/2025 6:50 PM Age: 64 years old Clinical indication: Injury or trauma; Other: Laceration/blunt trauma; Blunt trauma (contusions or hematomas) and laceration; Without residual foreign body; Forehead; Patient tripped striking head against door frame. Laceration to left orbit/frontal. ; Additional info: Fall, head inj TECHNIQUE: Imaging protocol: Computed tomography of the head without contrast. Radiation optimization: All CT scans at this facility use at least one of these dose optimization techniques: automated exposure control; mA and/or kV adjustment per patient size (includes targeted exams where dose is matched to clinical indication); or iterative reconstruction. COMPARISON: CT head wo con* [id number] 07/30/2021 12:14 PM RADIATION DOSE METRICS: Total DLP (mGy-cm): 994.88 FINDINGS: Brain: No intracranial hemorrhage or hematoma is seen. No mass effect or shift of midline structures. Clemente-white matter differentiation appears unremarkable. No findings of territorial or large vessel ischemic infarct. Cerebral ventricles: No ventriculomegaly. Paranasal sinuses: Visualized sinuses are unremarkable. No fluid levels. Mastoid air cells: Visualized mastoid air cells are well aerated. Bones: Bone windows of the skull show no skull fracture, and particularly without a depressed skull fracture. Soft tissues: Mild soft tissue swelling left supraorbital frontal scalp with component of soft tissue air density suggesting soft tissue injury or laceration. CT/CT head wo con* [id number] IMPRESSION: 1. No acute intracranial abnormality. 2. Soft tissue injury with mild soft tissue swelling and air density suggestive of laceration in the left supraorbital frontal scalp. No skull fracture identified.
--- NOTE | 2025-07-24 18:40 | XRR_ITS ---
PROCEDURE INFORMATION: Exam: XR Left Knee Exam date and time: 07/24/2025 6:41 PM Age: 64 years old Clinical indication: C/O left knee pain; Additional info: Fall TECHNIQUE: Imaging protocol: Radiologic exam of the left knee. Views: 3 views. COMPARISON: CT knee LT SYDNI [id number] 06/24/2025 1:59 PM FINDINGS: Bones/joints: No fracture or dislocation. No acute osseous abnormality. Slight joint space narrowing and minimal spur formation inferior patella. Mild chronic lateral subluxation of the patella with previous CT left knee exam 06/24/2025 and previous radiographic exam 06/12/2025. No significant effusion. No chondrocalcinosis. Soft tissues: Unremarkable. XR/XR knee LT 3V* [id number] IMPRESSION: No fracture or acute osseous abnormality.
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
[2025-07-24] MEDS: HYDROcodone-acetaminophen 7.5-325 mg Tablet 1 TAB PO (19:01)
[2025-07-24] MEDS: tetanus-dipt-pertussis 0.5 mL SDV IM (19:01)
[2025-07-24] MEDS: lidocaine-epi 2% 20 mL INJ 10 ML INJECTION (19:06)
[2025-07-24 19:07] VITALS: BP 141/79; PULSE 71; RESP 16; O2SAT 96
[2025-07-24 19:46] VITALS: BP 119/83; PULSE 68; RESP 18; O2SAT 95
== END 2025-07-24 19:48 | disposition home or self-care (01) ==
PROVIDERS: Emergency Provider Physician Assistant; PCP Internal Medicine
DX: S01.81XA Laceration without foreign body of other part of head, initial encounter (principal); S80.02XA Contusion of left knee, initial encounter; S01.112A Laceration without foreign body of left eyelid and periocular area, initial encounter; W01.0XXA Fall on same level from slipping, tripping and stumbling without subsequent striking against object, initial encounter; F17.210 Nicotine dependence, cigarettes, uncomplicated
CPT/HCPCS: 12013; 70450; 73562; 90471; 90715; 99284; J9999

== ENCOUNTER → 2025-07-28 05:32 | Day surgery (SDC) | payer MEDICARE, SELFPAY ==
[2025-07-28 06:06] VITALS: BP 121/86; PULSE 71; RESP 18; TEMP 36.6; O2SAT 97
[2025-07-28 06:07] VITALS: BMI 21.6
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
[2025-07-28] MEDS: acetaminophen 1,000 MG/100 ML PIGGYBACK 400 MG IV (06:21)
--- NOTE | 2025-07-28 07:00 | PC.NURSE ---
0655: cancelled per Dr Dumont. Pt had a fall sunday and has bruising and swelling to the operative knee
--- NOTE | 2025-07-28 08:26 | PM.MISC ---
Miscellaneous Note Purpose of Documentation: Surgical cancellation Note: Patient was seen in the preoperative holding area. She went to the emergency department on 1114, 4 days ago, after taking a fall at home. She hit her head and had a laceration requiring sutures. She also had a head CT at that time. She fell onto her left, operative knee, and x-rays were negative. She states she asked the emergency room to notify me, but this was not accomplished. On the morning of surgery, her bruising and aggravation to the area is so significant that we will not be able to proceed with surgery. She will be rescheduled at least 2 weeks into the future. We will evaluate her preoperatively prior to her rescheduled date to assure ecchymosis has resolved.
== END ==
PROVIDERS: PCP Internal Medicine; Visit Provider Specialist
PROC: 8E0Y0CZ Robotic Assisted Procedure of Lower Extremity, Open Approach (ICD-10-PCS; CPT 27447; principal; 2025-07-28 07:00)
DX: Z53.8 Procedure and treatment not carried out for other reasons (principal)
CPT/HCPCS: 36415; 86850; 86900; J0131; J1100; J2250; J2371; J2405; J2704; J7030; J9999

== ENCOUNTER → 2025-08-17 11:45 | Outpatient (BNVA) | payer MEDICARE, SELFPAY | PROVIDERS: PCP Internal Medicine; Visit Provider Nurse Practitioner | DX: M17.12 Unilateral primary osteoarthritis, left knee (principal); F17.210 Nicotine dependence, cigarettes, uncomplicated | CPT/HCPCS: 99214 ==

== ENCOUNTER 2025-08-18 09:28 | Observation (INO) | payer MEDICARE, SELFPAY ==
[2025-08-18] VITALS (17 sets, daily range): BP systolic 99–139; BP diastolic 63–81; PULSE 57–87; RESP 15–18; TEMP 36.2–36.9; O2SAT 95–99; BMI 21.6
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
[2025-08-18] MEDS: acetaminophen 1,000 MG/100 ML PIGGYBACK 400 MG IV ×3 (06:31→22:14)
--- NOTE | 2025-08-18 07:01 | W.PM.OPSUD ---
Surgery/Procedure H&P Update DATE OF PROCEDURE: August 18, 2025 DATE H&P PERFORMED: 08/17/25 H&P UPDATE INFORMATION: I have reviewed H&P completed within last 30 days, I have examined patient prior to procedure, No changes to prior documentation, H&P is in [facility] EMR on date indicated and Risks and benefits of the procedure reviewed PREOP DIAGNOSIS: Left knee osteoarthritis PLANNED PROCEDURE: Operation Date: 08/18/25 07:00 Proposed Procedures p Domenic Robot Total Knee Arthroplasty(Left) - Gi Dumont MD Related Problem List Diagnoses 1. Primary osteoarthritis of left knee: Qualifiers: Osteoarthritis type: primary
[2025-08-18] MEDS: ceFAZolin 2,000 mg SDV 2000 MG IVP ×3 (07:04→22:13)
[2025-08-18] MEDS: tranexamic acid 1,000 mg/10mL SDV 1000 MG IV (08:00)
[2025-08-18] MEDS: BUPivacaine liposome 13.3 mg/mL SDV 20 mL 266 MG INJECTION (08:20)
[2025-08-18] MEDS: ceFAZolin 1,000 mg SDV 2000 MG IRRIGATION (08:20)
[2025-08-18] MEDS: BUPivacaine 0.5% INJ 10 mL 20 ML INJECTION (08:20)
--- NOTE | 2025-08-18 09:54 | XR_ITS ---
WS: [id number] XR knee LT -2V [id number] REASON FOR EXAM: Status post left total knee arthroplasty FINDINGS: Total left knee arthroplasty. Components of the arthroplasty are intact and in proper position and alignment. No focal bone abnormality. XR/XR knee LT -V [id number] IMPRESSION: Total right knee arthroplasty without abnormality.
--- NOTE | 2025-08-18 10:01 | P.OP_ITS ---
Operative Report Date of procedure: August 18, 2025 Pre-op diagnosis: Severe degenerative osteoarthritis left knee with slight hyperextension Post-op diagnosis: Severe degenerative osteoarthritis left knee with slight hyperextension Post-op findings: Severe degenerative osteoarthritis with slight hyperextension and no significant deformity Procedure done: Left total knee arthroplasty with Domenic guidance Implants: The Barton total knee system with a size 2 triathlon beaded cruciate retaining femur left, a triathlon titanium tibial component size 2 beaded, a triathlon X3 tibial bearing CS insert size 2 X 9 mm and a beaded triathlon titanium asymmetric patella size 29 x 9 mm Specimens removed/disposition: Bone, disposed of Pathology: None Surgeon: iG Dumont MD Funeral Pre Arrangement Specialist: Ana Olivares, nurse practitioner who services were required for retraction, exposure, closure, and completion of the surgical procedure Anesthesia: Spinal (With MAC, ASA 3) Estimated blood loss (mL): 20 Tourniquet time (min): 0 (Not utilized) IV fluids (mL): 1,500 Urine output (mL): 300 Complications: None Findings: Denudement of cartilage, particularly on the medial femoral condyle. Slight hyperextension. No large osteophytes. Condition: stable Disposition: PACU (Then to floor for postoperative rehabilitation and pain management) Brief History: This 65-year-old woman presents today for same-day surgery left total knee arthroplasty with Domenic guidance. Patient was previously scheduled for the surgery, however, she fell a couple days before her surgery was scheduled directly onto the operative knee. She healed this and is now ready to proceed with total knee arthroplasty. She has significant limitations in her activities of daily living. MRI demonstrated advanced tricompartmental osteoarthritis. After discussion, the patient wished to proceed with total knee arthroplasty. Risks and complications were discussed with her. Consents were signed and questions were answered. She was seen preoperatively in the preop area and given further opportunity for questions. Procedure: The patient was brought to the operating theater, and after undergoing adequate spinal anesthesia with MAC, ASA 3, the left lower extremity was prepped with DuraPrep and draped in usual fashion following placement of a tourniquet high on the leg. The leg was then draped free. Tourniquet was placed on the leg but was not elevated throughout the surgical procedure. Following exposure of the site of surgery, a surgical pause was performed. At the time of the surgical pause, we confirmed the site and side of surgery. Additionally, we confirmed the appropriate and timely administration of preoperative antibiotics, Ancef 2 g. Tranexamic acid 1 g was given preoperatively and will be given again on the floor for 1 dose postoperatively. The availability of equipment was confirmed, and the patient's identity was verbalized as well. Following the surgical pause, an incision was made centering over the patella continuing proximally and distally as necessary to allow access to the knee joint. Dissection continued through skin and soft tissues using a scalpel. Hemostasis was obtained using electrocautery. The skin incision was followed by a median parapatellar arthrotomy. The leg was extended and the patella was able to be displaced laterally. Appropriate arrays and markers were placed in appropriate position for use of the Domenic. Preoperative planning had been accomplished and was discussed in detail with the [facility] physician relations representative. Intraoperative mapping of the femur and tibia was accomplished after the arrays were placed. Once we had accomplished the Domenic mapping, we began the appropriate resections for placement of the prosthesis. The plan was for a cruciate retaining right total knee arthroplasty. Once appropriate mapping had been accomplished retraction was established using manual retraction by the [facility] leg positioner and retractors. The knee was evaluated. There was eburnation particularly of the medial femoral condyle, and there was diffuse loss of cartilage over the condyles and tibial plateau.?After balancing the knee within the Domenic program, the appropriate bone resection was accomplished. Initial resection was accomplished on the tibia followed by appropriate resections on the femur. We had performed a medial release at the beginning of the procedure to allow for placement of the array. Proximal tibia was evaluated and it was felt that appropriate size for the tibia was a size 2, and appropriate femoral size was a size 2. A trial reduction was accomplished after osteophytes had been removed, the medial and lateral meniscus were excised, and bone cuts had been accomplished as above. We had removed the anterior cruciate ligament at the beginning of the case and preserved the posterior cruciate ligament. Trial reduction was accomplished with a size 2 femoral cruciate retaining component and a size 2 tibia with a CS tibial bearing insert which was 10 mm in thickness. We decreased and trialed the 9 mm in thickness which was felt to give a better balance and allow full extension of the knee. Trial reduction demonstrated that the knee had excellent stability, full extension, and full flexion. The trial components were removed after the femur had been drilled. Prior to removal of the tibial tray which had been pinned in position with appropriate rotation as determined by the Domenic plan, we broached the tibia. Subsequently, the 4 drill holes were made for the prosthetic component. All trial components had been removed, and the wound was irrigated. Plans were made for insertion of the prosthetic components. Prior to this, the patella was manually prepared. After resection of the articular surface, it was measured and measured a 29 mm patella. Patellar height was restored with the patellar component. Once again, the wound was irrigated. The Tritanium tibia was impacted into position.? The beaded femur was then impacted into position in a cementless fashion. The CS tibial insert was placed prior to placement of the femoral component. The patella was pressed into position with a patellar clamp.? Exparel was injected prior to placement of the components. The knee was then copiously irrigated with betadine and saline and suctioned dry. Attention was then directed to closure. Closure was accomplished with 0 Vicryl in the fascial tissues followed by a running #1 strata fix from proximal to distal and another from distal to proximal.? This was followed by Surgiflo and vancomycin powder. Subcutaneous tissues were closed with 2-0 Monocryl interrupted, and the skin was closed in a running subcuticular fashion with 3-0 Monocryl strata fix.? A st erile dressing was then placed consisting of Dermabond Prineo, OpSite, sterile soft roll including over the foot, and an [place] wrap. The patient was returned the Recovery Room in a satisfactory condition. X-rays were obtained and reviewed there.? The patient will be discharged to the floor for postoperative rehabilitation and pain management. Related Problem List Diagnoses 1. Primary osteoarthritis of left knee:
--- NOTE | 2025-08-18 10:21 | ANE.PACU2 ---
Inpatient post-anesthesia follow up: Airway intact: Yes Vital signs: Temperature 97.8 F Pulse Rate 75 Respiratory Rate 16 Blood Pressure 129/80 Pulse Oximetry 98 Oxygen Delivery Me thod Room Air Oxygen Flow Rate Fraction of Inspir ed Oxygen Hydration adequate: Yes Nausea and vomiting: No Pain level: 1 Mental status: Baseline
[2025-08-18] MEDS: chlorhexidine gluconate 0.12% Btl 473 mL 30 ML MUCOUS MEM ×2 (11:31→17:52)
[2025-08-18] MEDS: oxyCODONE 5 mg IR Tab/Cap PO ×2 (13:10→21:29)
[2025-08-18] MEDS: tranexamic acid 1,000 MG/100 ML PREMIX 600 MG IV (15:45)
[2025-08-18] MEDS: mupirocin oint 22 gm 1 APPLIC NASAL (17:50)
[2025-08-18] MEDS: sennosides-docusate Tablet 2 TAB PO (17:51)
[2025-08-19] MEDS: sennosides-docusate Tablet 2 TAB PO (05:05)
[2025-08-19] MEDS: multivitamin therapeutic Tablet 1 TAB PO (05:06)
[2025-08-19 05:25] LABS: Hematocrit 32.1 % (36-47); Hemoglobin 10.50 g/dL (11.27-16.99); Mean Corpuscular HGB Conc 32.7 g/dL (30-55); Mean Corpuscular Hemoglobin 29.6 pg (27-33); Mean Corpuscular Volume 90.4 fl (85-98); Nucleated Red Blood Cells % 0 %; Platelet Count 276 10^3/cmm (157-399); Red Blood Count 3.55 10^6/uL (3.85-5.65); White Blood Count 9.83 10^3/uL (3.29-11.43)
[2025-08-19 05:44] LABS: Anion Gap 11.8 (5-19); Blood Urea Nitrogen 10 mg/dL (8-23); Calcium 8.8 mg/dL (8.5-10.5); Carbon Dioxide 24 mmol/L (22-29); Chloride 106 mmol/L (98-107); Glucose 114 mg/dL (65-115); Osmolality Calculated 286 mOsm/kg (285-295); Potassium 3.8 mmol/L (3.5-5.1); Sodium 138 mmol/L (136-145)
[2025-08-19] MEDS: ceFAZolin 2,000 mg SDV 2000 MG IVP (06:25)
[2025-08-19] MEDS: acetaminophen 1,000 MG/100 ML PIGGYBACK 400 MG IV ×2 (06:25→07:10)
[2025-08-19 07:31] VITALS: BP 106/67; PULSE 56; RESP 16; TEMP 37.1; O2SAT 98
[2025-08-19 08:32] VITALS: RESP 17; O2SAT 99
[2025-08-19] MEDS: oxyCODONE 5 mg IR Tab/Cap PO (08:32)
[2025-08-19 08:35] VITALS: PULSE 67; RESP 17
--- NOTE | 2025-08-19 09:22 | PC.CHAP ---
Pastoral Care Encounter/Spiritual Assessment Type of Contact [] Declined clothing examiner visit [] Patient/Family/Request visit [] Outpatient visit [] Follow-up visit [] Physician referral [] Code/Alert [x] Routine visit [] Staff referral [] Actively dying [] Patient sleeping [] Family support [] [] Out of room [] Palliative care [] [] Receiving care in room [] Pre-surgical visit [] Trauma [] Long length of stay [] ICU visit [] Other: Relational/Emotional Strength [x] Patient feels connected with others/family/visitors/staff [] Distress [] Loneliness/isolation [] Abandonment Spirituality of Patient [x] Person of Sabrina [] Attends Sikh of their Sabrina [x] Believes in Prayer [] Reads Bible or Tenriism materials [] There are Spiritual issues to be addressed Cold Reduction Roller Interventions [x] Prayer [x] Active listening [] Non-anxious presence [x] Spiritual/emotional support [] Crisis/trauma care [] Spiritual counseling [] Bereavement support [] Provided bereavement packet [] Provided Bible/devotional materials [] Provided toy/stuffed animal, coloring book to patient or family member [] Provided Communion [] Anointing/Cecil [] Salvation [x] Completed spiritual assessment [] Other: Impact on Illness or Injury [] Angry [] Fearful [] Anxious [] Often cries [] Exhaustion [] Unable to work [] Unable to attend nondenominational [] Unable to walk/stand [] Unable to read [] Unable to drive [] Unable to eat/drink [] Unable to sleep [] Unable to be with family [] Patient intubated [] Other: Summary Time spent with patient 5 min
[2025-08-19] MEDS: chlorhexidine gluconate 0.12% Btl 473 mL 30 ML MUCOUS MEM (11:07)
[2025-08-19 11:21] VITALS: BP 139/79; PULSE 65; RESP 16; TEMP 36.4; O2SAT 97
--- NOTE | 2025-08-19 13:29 | P.DS_ITS ---
Discharge Providers Date of Admission: 08/18/25 09:28 Date of Discharge: August 19, 2025 Attending Provider at Admission: Gi Dumont MD Attending Provider at Discharge: Gi Dumont MD Primary Care Provider: Samantha Evans MD Diagnoses at Discharge Discharge Diagnosis 1. Status post total left knee replacement not using cement: 2. Primary osteoarthritis of left knee: Reason for Visit Reason for Visit: M17.12 Brief History: This 65-year-old woman presents today for same-day surgery left total knee arthroplasty with Domenic guidance. Patient was previously scheduled for the surgery, however, she fell a couple days before her surgery was scheduled directly onto the operative knee. She healed this and is now ready to proceed with total knee arthroplasty. She has significant limitations in her activities of daily living. MRI demonstrated advanced tricompartmental osteoarthritis. After discussion, the patient wished to proceed with total knee arthroplasty. Risks and complications were discussed with her. Consents were signed and questions were answered. She was seen preoperatively in the preop area and given further opportunity for questions. Physical Exam Const: COMMON NORMALS: no acute distress, average body habitus, patient oriented x3 and alert GENERAL APPEARANCE: cooperative and comfortable ORIENTATION/CONSCIOUSNESS: Yes awake HENMT: COMMON NORMALS: normocephalic and atraumatic HEAD & SCALP: normocephalic and atraumatic Eye: GENERAL EYE: appearance normal, both eyes and all related structures Chest: COMMONS NORMALS: normal inspection of the chest Resp: COMMON NORMALS: normal respiratory effort EFFORT & INSPECTION: Yes able to speak in complete sentences and Yes symmetric chest movement Extremity: LEFT LOWER EXTREMITY: Yes knee joint (Large outer dressing removed) Left knee: Yes inspection (No significant ecchymosis), Yes palpation (Minimal tenderness), Yes ROM (Not evaluated, unable to straight leg raise) and Yes neurovascular exam (Intact with no evidence of DVT) Neuro: COMMON NORMALS: patient oriented x3 SENSORIUM/ORIENTATION: Yes alert Psych: COMMON NORMALS: mental status grossly normal APPEARANCE: Yes grossly normal ATTITUDE: Yes calm and Yes engaged ATTENTION/CONCENTRATION: Yes attention grossly intact Skin: COMMON NORMALS: no rashes or lesions noted GENERAL SKIN EXAM: no rashes or lesions noted Urinary Catheter Management: Hernandez Latex Free: Cath Placed During This Visit: yes, but has since been removed by the nurse Reason for Continuing Indwelling Catheter: Decision to DC Catheter Urinary Catheter Date of Insertion: 08/18/25 Urinary Catheter Time of Insertion: 07:13 Date Urinary Catheter Removed: 08/19/25 Time Urinary Catheter Discontinued: 06:30 Discharge Data Studies Completed and Pending Completed Studies During Hospitalization Category Date Time Status XR knee LT 1-2V 03641 Routine Exams 08/18/25 09:54 Completed Pending at discharge Category Date Time Status Complete Blood Count w/Auto AM LABS Lab 08/20/25 04:00 Ordered Complete Blood Count w/Auto AM LABS Lab 08/21/25 04:00 Ordered Radiology Impressions Knee X-Ray 08/18/25 09:54 IMPRESSION: Total right knee arthroplasty without abnormality. Laboratory Results WBC 9.83 10^3/uL (3.29-11.43) 08/19/25 05:04 RBC 3.55 10^6/uL (3.85-5.65) L 08/19/25 05:04 Hgb 10.50 g/dL (11.27-16.99) L 08/19/25 05:04 Hct 32.1 % (36-47) L 08/19/25 05:04 MCV 90.4 fl (85-98) 08/19/25 05:04 MCH 29.6 pg (27-33) 08/19/25 05:04 MCHC 32.7 g/dL (30-55) 08/19/25 05:04 RDW 14.7 % (12.1-15.1) 08/19/25 05:04 Plt Count 276 10^3/cmm (157-399) 08/19/25 05:04 MPV 9.9 fL (7.4-10.4) 08/19/25 05:04 Neut % (Auto) 64.8 % 08/19/25 05:04 Lymph % (Auto) 23.4 % 08/19/25 05:04 [place] % (Auto) 8.2 % 08/19/25 05:04 Eos % (Auto) 2.6 % 08/19/25 05:04 Baso % (Auto) 0.7 % 08/19/25 05:04 Neut # (Auto) 6.36 10^3/uL (1.8-7.7) 08/19/25 05:04 Lymph # (Auto) 2.3 10^3/uL (0.8-4.8) 08/19/25 05:04 Independence # (Auto) 0.8 10^3/uL (0.2-0.9) 08/19/25 05:04 Eos # (Auto) 0.3 10^3/uL (0.0-0.8) 08/19/25 05:04 Baso # (Auto) 0.1 10^3/uL (0.0-0.1) 08/19/25 05:04 Nucleated RBC % (auto) 0 % 08/19/25 05:04 Nucleated RBCs # 0.0 /100WBC 08/19/25 05:04 Sodium 138 mmol/L (136-145) 08/19/25 05:04 Potassium 3.8 mmol/L (3.5-5.1) 08/19/25 05:04 Chloride 106 mmol/L (98-107) 08/19/25 05:04 Carbon Dioxide 24 mmol/L (22-29) 08/19/25 05:04 Anion Gap 11.8 (5-19) 08/19/25 05:04 BUN 10 mg/dL (8-23) 08/19/25 05:04 Creatinine 0.9 mg/dL (0.5-0.9) 08/19/25 05:04 GFR Calculation 63.0 mL/min (90-130) L 08/19/25 05:04 Glucose 114 mg/dL (65-115) 08/19/25 05:04 Calculated Osmolality 286 mOsm/kg (285-295) 08/19/25 05:04 Calcium 8.8 mg/dL (8.5-10.5) 08/19/25 05:04 Vitals Last Vital Signs Temp 97.5 F L 08/19/25 11:21 Pulse 65 08/19/25 11:21 Resp 16 08/19/25 11:21 BP 139/79 08/19/25 11:21 Pulse Ox 97 08/19/25 11:21 O2 Del Method Room Air 08/19/25 11:21 Discharge Plan Discharge Patient Disposition: Home Health Service Condition: Stable Prescriptions: New oxycodone 5 mg Tablet 5 mg PO Q4H PRN (Reason: Moderate To Severe Pain) 7 Days Qty: 40 0RF aspirin 325 mg Tablet,Delayed Release (Dr/Ec) 325 mg PO DAILY 30 Days Qty: 30 0RF celecoxib 200 mg Capsule 200 mg PO 1XD 30 Days Qty: 30 0RF chlorzoxazone 500 mg tablet 250 mg PO TID PRN (Reason: spasm) Qty: 21 0RF acetaminophen 500 mg Tablet 1,000 mg PO Q8H 15 Days Qty: 90 0RF Continued levothyroxine 25 mcg capsule 25 mcg PO DAILY@0800 (DME) cock up splint See Rx Instructions .Route .MEDSUPPLY Qty: 1 0RF Rx Instructions: As directed (DME) Sole Supports See Rx Instructions .Route .MEDSUPPLY Qty: 1 0RF Rx Instructions: As directed (DME) Cam Boot to the right See Rx Instructions .Route .MEDSUPPLY Qty: 1 0RF Rx Instructions: As directed Length of need 1 year (DME) Left hinged knee brace See Rx Instructions .Route .MEDSUPPLY Qty: 1 0RF Rx Instructions: As directed cholecalciferol (vitamin D3) 50 mcg (2,000 unit) capsule 50 mcg PO DAILY (DME) Supinator to the Right See Rx Instructions .Route .MEDSUPPLY Qty: 1 0RF Rx Instructions: As directed amitriptyline 50 mg tablet 50 mg PO .bedtime Qty: 90 2RF Rx Instructions: Take one tablet at bedtime (DME) CAM walker See Rx Instructions .Route .MEDSUPPLY Qty: 1 0RF Rx Instructions: As directed (DME) Cam boot to right See Rx Instructions .Route .MEDSUPPLY Qty: 1 0RF Rx Instructions: As directed fluticasone propionate 50 mcg/actuation spray,suspension 2 spray INTRANASAL DIRECTED Held ibuprofen 800 mg tablet 800 mg PO Q8H PRN (Reason: pain) Qty: 30 0RF Hold Instructions: Until Celebrex is completed Discharge Order = DC NOW: Discharge Order (Routine); Ordered 08/19/25 Ordered By: Gi Dumont Other Ambulatory Orders: DME: Walker (Order) Location: None Selected Ordered By: Gi Dumont Referrals: [facility] [Outside] Gi Dumont MD [Physician, Orthopedics] - 08/31/25 9:45 am Discharge Diet: Advance as tolerated and Usual diet Discharge Activity: Increase activity as tolerated, Limit activity as instructed, Use walker/crutches as instructed and As per PT/OT instructions Patient Instructions: Acute Wound Care (DC), Opioid Safety, Post Anesthesia Care, Patient Portal & Jay Instructions Activity Restrictions/Additional Instructions: Ice to the left lower extremity. Elevation. Weightbearing as tolerated. Range of motion, strengthening, and gait training per physical therapy. You may shower and get the dressing wet, or if the dressing begins to leak, please remove it. At that point, you may shower and get the wound wet as well. Do not submerge it in water, however. Discharge Attestations Time Spent in Discharge Care*: greater than 30 min Specific Discharge Activities: educating patient, documenting/other paperwork and evaluating patient/reviewing data Quality Metrics Clinical Quality Measures [ No reported AMI, CVA or VTE this stay] Coding Level of Care Code Acute Code for Chg Fwd Diagnoses Status post total left knee replacement not using cement Z96.652 Primary osteoarthritis of left knee M17.12 Osteoarthritis type: primary
[2025-08-19 14:09] VITALS: BP 139/79; PULSE 65; RESP 16; TEMP 36.4; O2SAT 97
--- NOTE | 2025-08-19 14:42 | PC.OT ---
OT EVALUATION ATTEMPTED TWICE. IN A.M. PATIENT WAS FINISHING LUNCH AND VISITOR IN THE ROOM. PATIENT SAID OH GREAT! (SARCASM) WHEN I ENTERED TO ROOM AND INTRODUCED MYSELF. I INFORMED THE PATIENT THAT I WOULD RETURN LATER IN THE DAY. IN P.M. PATIENT WAS DRESSED AND READY FOR D/C. INSTRUCTED PATIENT TO DRESS THE L LE/SX LEG FIRST AND SHE VOICED UNDERSTANDING. PATIENT STATES THAT SHE IS READY TO LEAVE; WASHROOM CLEANER INFORMED
--- NOTE | 2025-08-19 14:49 | PC.NURSE ---
Discussed discharge medications and to hold ibuprofen, joint replacement stoplight, gave patient appointment card and discussed in length signs and symptoms of infection, showering, no submerging leg in water. Patient verbalized understanding of all and questions answered.
== END 2025-08-19 14:20 | disposition home health service (06) ==
LOC: MEDSURG 09:30
PROVIDERS: Admitting Provider Specialist; PCP Internal Medicine; Visit Provider Specialist
PROC: 8E0Y0CZ Robotic Assisted Procedure of Lower Extremity, Open Approach (ICD-10-PCS; CPT 27447; principal; 2025-08-18 07:00)
DX: M17.12 Unilateral primary osteoarthritis, left knee (principal); E03.9 Hypothyroidism, unspecified; K21.9 Gastro-esophageal reflux disease without esophagitis; F17.210 Nicotine dependence, cigarettes, uncomplicated; F41.9 Anxiety disorder, unspecified; F33.41 Major depressive disorder, recurrent, in partial remission
CPT/HCPCS: 27447; 20985; 36415; 51702; 73560; 80048; 85025; 97110; 97116; 97162; 97530; A4216; A4649; C1776; G0378; J0131; J0666; J0690; J2704; J3373; J3490; J7030; J9999

== ENCOUNTER → 2025-09-08 13:10 | Outpatient (BNVA) | payer MEDICARE, SELFPAY | PROVIDERS: PCP Internal Medicine; Visit Provider Nurse Practitioner | DX: Z98.890 Other specified postprocedural states (principal); Z96.652 Presence of left artificial knee joint | CPT/HCPCS: 99024 ==